=== PATIENT | female | born 1935 | race Caucasian/White ===

== ENCOUNTER 2023-09-23 17:05 | Emergency (ER) | payer MEDICARE, SELFPAY ==
[2023-09-23 17:13] VITALS: BP 160/90; PULSE 72; TEMP 36.7; O2SAT 97; BMI 35.5
--- NOTE | 2023-09-23 17:22 | ECG_ITS ---
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
--- NOTE | 2023-09-23 17:32 | ED.GENADUL1 ---
HPI HPI - General Adult General Chief complaint: Upper Respiratory Infection Stated complaint: Cough, General Weakness Time Seen by Provider: 09/23/23 17:08 Source: patient and family Mode of arrival: walk-in Limitations: no limitations History of Present Illness HPI narrative: Patient is an 88-year-old female with a history of A-fib who presents to the ER for multiple complaints. She states for the last week she has had cough and congestion. She has had green sputum with coughing and reports soreness in the ribs with coughing. She states she feels like she pulled a muscle. She is anticoagulated with Eliquis for history of A-fib. She is due to have cardioversion next week with Dr. Osman for cardiology. She has had no objective fevers. She reports some diarrhea at the beginning of the course of her illness. No sick contacts, she lives alone. She reports decreased appetite but has been eating and drinking without vomiting. She further complains that for the last 3 weeks since her medications were changed by the manganese heater, she has been feeling generally weak and not well. Her PCP recently retired and she has been working with a nurse practitioner as her primary care provider, she was not prescribed any new medications in the last week for her cough and congestion. Related Data Home Medications ?Medication ?Instructions ?Recorded ?Confirmed apixaban 5 mg tablet (Eliquis) 5 mg PO BID 09/23/23 09/23/23 atenolol 25 mg tablet 25 mg PO DAILY 09/23/23 09/23/23 carvedilol 12.5 mg tablet 12.5 mg PO DAILY 09/23/23 09/23/23 meloxicam 15 mg tablet 15 mg PO DAILY 09/23/23 09/23/23 Previous Rx's ?Medication ?Instructions ?Recorded albuterol sulfate 90 mcg/actuation 2 inh inhalation Q4H PRN shortness 09/23/23 aerosol inhaler of breath or wheezing #8.5 grams azithromycin 250 mg tablet See Rx Instructions PO .COMPLEX #6 09/23/23 (Zithromax Z-Dez) tabs methocarbamol 500 mg tablet 500 mg PO Q8H PRN muscle pain #12 09/23/23 tabs methylprednisolone 4 mg tablets in See Rx Instructions .Route 09/23/23 a dose pack (Medrol (Dez)) .COMPLEX #21 ea Allergies Allergy/AdvReac Type Severity Reaction Status Date / Time acetaminophen [From Tylenol] Allergy Mild Hives Verified 09/23/23 17:21 ibuprofen [From Motrin] Allergy Mild Hives Verified 09/23/23 17:21 metoprolol Allergy Mild Hives Verified 09/23/23 17:21 Opioid HPI Opioid Management Most Recent Opioid Data: No Data to Display Review of Systems ROS Constitutional Denies: fever or chills Ears, nose, mouth, and throat Reports: nasal congestion; Denies: throat pain Cardiovascular Denies: chest pain Respiratory Reports: shortness of breath, cough and wheezing Gastrointestinal Reports: diarrhea; Denies: nausea or vomiting Musculoskeletal Denies: back pain or neck pain Integumentary/Breast Denies: rash Neurological Denies: headache Hematologic/Lymphatic Denies: easy bruising or easy bleeding Exam Narrative Exam Narrative: Gen.: Awake, alert, in no distress Head: Normocephalic, atraumatic ENT: Moist mucous membranes Respiratory: No respiratory distress, Faint expiratory wheezing in the bilateral upper lobes Cardio: Irregular Rhythm, normal rate Extremities: Moves extremities equally, no pedal edema Psych: Normal mood and affect Neuro: No focal neuro deficit Skin: Warm, dry, intact Constitutional Vital Signs, click to edit/add: Last Vital Signs Temp 98.0 F 09/23/23 17:13 Pulse 65 09/23/23 18:12 Resp 16 09/23/23 18:12 BP 160/90 H 09/23/23 17:13 Pulse Ox 95 09/23/23 18:12 O2 Del Method Room Air 09/23/23 18:12 Course Vital Signs Vital signs: Vital Signs Temperature 98.0 F 09/23/23 17:13 Pulse Rate 72 09/23/23 17:13 Respiratory Rate 18 09/23/23 17:13 Blood Pressure 160/90 H 09/23/23 17:13 Pulse Oximetry 97 09/23/23 17:13 Oxygen Delivery Method Room Air 09/23/23 17:13 Temperature 98.0 F 09/23/23 17:13 Pulse Rate 65 09/23/23 18:12 Respiratory Rate 16 09/23/23 18:12 Blood Pressure 160/90 H 09/23/23 17:13 Pulse Oximetry 95 09/23/23 18:12 Oxygen Delivery Method Room Air 09/23/23 18:12 Medical Decision Making MDM Narrative Medical decision making narrative: Patient treated with IV fluids, albuterol, steroids, Robaxin. Patient maintains normal vital signs and oxygen saturation. Chest x-ray shows no evidence of acute cardiopulmonary changes. Lab studies including troponin, BNP are within normal limits. Patient is in rate controlled A-fib in the emergency department. Respiratory panel is positive for human metapneumovirus. Based on the patient's age and duration of symptoms, she was treated with albuterol inhaler, Medrol Dosepak, Z-Dez. Follow-up closely with PCP and return to the emergency department if symptoms change or worsen. Patient was reevaluated by attending physician prior to discharge. Medical Records Medical records reviewed: Yes I reviewed the patient's medical records Lab Data Lab results reviewed: Yes I reviewed the patient's lab results Labs: Lab Results 09/23/23 09/23/23 Range/Units 17:36 17:40 WBC 5.9 (4.0-11.0) 10^3/uL RBC 4.63 (4.20-5.40) 10^6/uL Hgb 13.5 (12.0-16.0) g/dL Hct 42.5 (36.0-48.0) % MCV 91.8 (81.0-99.0) fL MCH 29.2 (26.7-34.0) pg MCHC 31.8 (29.9-35.2) g/dL RDW 15.0 (11.0-15.0) % Plt Count 232 (150-450) 10^3/uL MPV 9.7 (9.5-13.5) fL Neut % (Auto) 65.4 (43.0-75.0) % Lymph % (Auto) 22.2 (20.5-60.0) % [place] % (Auto) 10.6 (1.7-12.0) % Eos % (Auto) 1.2 (0.9-7.0) % Baso % (Auto) 0.3 (0.2-2.0) % Neut # (Auto) 3.8 (1.4-6.5) 10^3/uL Lymph # (Auto) 1.3 (1.2-3.8) 10^3/uL [place] # (Auto) 0.6 (0.3-0.8) 10^3/uL Eos # (Auto) 0.1 (0.0-0.7) 10^3/uL Baso # (Auto) 0.0 (0.0-0.1) 10^3/uL Abs Immat Gran (auto) 0.02 (0.00-0.03) 10^3/uL Imm/Tot Granulo (auto) 0.3 (0.0-0.5) % PT 11.0 (9.0-11.6) sec INR 1.04 Sodium 138 (136-145) mmol/L Potassium 3.5 (3.5-5.1) mmol/L Chloride 101 (98-107) mmol/L Carbon Dioxide 27.3 (21.0-32.0) mmol/L Anion Gap 13.2 BUN 16.0 (7.0-18.0) mg/dL Creatinine 1.09 H (0.55-1.02) mg/dL Est GFR ( Amer) 58 L (>=60) Est GFR (Non-Af Amer) 48 L (>=60) BUN/Creatinine Ratio 14.7 Glucose 106 (74-106) mg/dL Lactate 0.9 (0.4-2.0) mmol/L Calcium 9.0 (8.5-10.1) mg/dL Total Bilirubin 0.9 (0.2-1.0) mg/dL AST 13 L (15-37) U/L ALT 18 (14-59) U/L Alkaline Phosphatase 63 (46-116) U/L Troponin I High Sens 9.9 (4.0-51.3) pg/mL NT-Pro-B Natriuret Pep 1691.0 (<=1800.0) pg/mL Total Protein 7.4 (6.4-8.2) g/dL Albumin 3.4 (3.4-5.0) g/dL Globulin 4.0 g/dL Albumin/Globulin Ratio 0.9 TSH 2.080 (0.358-3.740) uIU/mL Adenovirus (PCR) Not detected (NOT DETECTE) B. pertussis DNA (PCR) Not detected (NOT DETECTE) B.parapertussis DNA PCR Not detected (NOT DETECTE) C. pneumoniae DNA (PCR) Not detected (NOT DETECTE) Coronavirus Type OC43 Not detected (NOT DETECTE) Coronavirus Type HKU1 Not detected (NOT DETECTE) Coronavirus Type 229E Not detected (NOT DETECTE) Coronavirus Type NL63 Not detected (NOT DETECTE) Human Metapneumovir PCR Detected A (NOT DETECTE) Influenza Type A (PCR) Not detected (NOT DETECTE) Influenza Type B (PCR) Not detected (NOT DETECTE) M. pneumoniae (PCR) Not detected (NOT DETECTE) Parainfluenza PCR Not detected (NOT DETECTE) Parainfluenza 2 (PCR) Not detected (NOT DETECTE) Parainfluenza 3 (PCR) Not detected (NOT DETECTE) Parainfluenza 4 (PCR) Not detected (NOT DETECTE) RSV (RT-PCR) Not detected (NOT DETECTE) Entero/Rhino (PCR) Not detected (NOT DETECTE) SARS-CoV-2 (PCR) Not detected (NOT DETECTE) Imaging Data Chest x-ray: Attestation: I have reviewed the pertinent imaging results. Radiologist's impression: ITS Impressions Chest X-Ray 09/23/23 18:08 Impression: No radiographic evidence of acute cardiopulmonary process. Electronically authenticated by: NGOZI ARREOLA Date: 09/23/2023 19:00 ECG Data Attestation: I personally reviewed and interpreted this ECG as follows: (Atrial fibrillation at a rate of 68, right bundle branch block, no acute ST elevation or ectopy. EKG reviewed by attending physician) Discharge Plan Discharge Stand Alone Forms: Portal Instructions Chief Complaint: Upper Respiratory Infection Clinical Impression: Upper respiratory infection Patient Disposition: Home, Self-Care Time of Disposition Decision: 18:59 Condition: Good Prescriptions / Home Meds: New azithromycin [Zithromax Z-Dez] 250 mg tablet See Rx Instructions .ROUTE .COMPLEX Qty: 6 0RF Rx Instructions: For 250 mg dose pack: take 500 mg today (day 1), then 250 mg for 4 days (days 2-5) methylprednisolone [Medrol (Dez)] 4 mg tablets,dose pack See Rx Instructions .ROUTE .COMPLEX Qty: 21 0RF Rx Instructions: Taper as directed albuterol sulfate 90 mcg/actuation HFA aerosol inhaler 2 inh inhalation Q4H PRN (Reason: shortness of breath or wheezing) Qty: 8.5 0RF methocarbamol 500 mg tablet 500 mg PO Q8H PRN (Reason: muscle pain) Qty: 12 0RF No Action Eliquis 5 mg tablet 5 mg PO BID meloxicam 15 mg tablet 15 mg PO DAILY atenolol 25 mg tablet 25 mg PO DAILY carvedilol 12.5 mg tablet 12.5 mg PO DAILY Rx Instructions: must administer with a meal/food Print Language: Bengali Instructions: Upper Respiratory Infection (ED) Referrals: Physician,Non-Staff, MD [Primary Care Provider] - 1 week
[2023-09-23] MEDS: 0.9 % SODIUM CHLORIDE 1,000 ML 200 ML IV (17:41)
[2023-09-23 17:42] LABS: Adenovirus NOT DETECTED (NOT DETECTE); Bordetella parapertussis NOT DETECTED (NOT DETECTE); Coronavirus 229E NOT DETECTED (NOT DETECTE); Coronavirus HKU1 NOT DETECTED (NOT DETECTE); Coronavirus NL63 NOT DETECTED (NOT DETECTE); Coronavirus OC43 NOT DETECTED (NOT DETECTE); Human Rhinovirus/Enterovirus NOT DETECTED (NOT DETECTE); Influenza A NOT DETECTED (NOT DETECTE); Influenza B NOT DETECTED (NOT DETECTE); Mycoplasma pneumoniae NOT DETECTED (NOT DETECTE); Parainfluenza Virus 1 NOT DETECTED (NOT DETECTE); Parainfluenza Virus 2 NOT DETECTED (NOT DETECTE); Parainfluenza Virus 3 NOT DETECTED (NOT DETECTE); Parainfluenza Virus 4 NOT DETECTED (NOT DETECTE); Respiratory Syncytial Virus NOT DETECTED (NOT DETECTE); SARS-CoV-2 NOT DETECTED (NOT DETECTE)
[2023-09-23] MEDS: METHOCARBAMOL 500 MG TABLET PO (17:42)
[2023-09-23] MEDS: METHYLPREDNISOLONE SOD SUCC PF 125 MG/2 ML VIAL IVP (17:46)
[2023-09-23 17:55] LABS: Basophils Percent Auto 0.3 % (0.2-2.0); Eosinophils Absolute Auto 0.1 10^3/uL (0.0-0.7); Eosinophils Percent Auto 1.2 % (0.9-7.0); Hematocrit 42.5 % (36.0-48.0); Hemoglobin 13.5 g/dL (12.0-16.0); Immature Granulocytes Abs Auto 0.02 10^3/uL (0.00-0.03); Immature Granulocytes Pct Auto 0.3 % (0.0-0.5); Lymphocytes Absolute Auto 1.3 10^3/uL (1.2-3.8); Lymphocytes Percent Auto 22.2 % (20.5-60.0); Mean Corpuscular HGB Conc 31.8 g/dL (29.9-35.2); Mean Corpuscular Hemoglobin 29.2 pg (26.7-34.0); Mean Corpuscular Volume 91.8 fL (81.0-99.0); Mean Platelet Volume 9.7 fL (9.5-13.5); Monocytes Absolute Auto 0.6 10^3/uL (0.3-0.8); Monocytes Percent Auto 10.6 % (1.7-12.0); Neutrophils Absolute Auto 3.8 10^3/uL (1.4-6.5); Neutrophils Percent Auto 65.4 % (43.0-75.0); Platelet Count 232 10^3/uL (150-450); Red Blood Count 4.63 10^6/uL (4.20-5.40); White Blood Count 5.9 10^3/uL (4.0-11.0)
[2023-09-23 17:56] VITALS: PULSE 67
[2023-09-23 18:01] LABS: INR 1.04
--- NOTE | 2023-09-23 18:08 | XR_ITS ---
[address] [address] Patient Name: ADELINA DUKE MRN: [id number] date: 1935 Sex: F Assigned Patient Location: ER Current Patient Location: ED.MAIN Accession/Order Number: [id number] Exam Date: 09/23/2023 18:00 Report Date: 09/23/2023 19:00 At the request of: MERARI JENKINS Procedure: XR chest 1V EXAM: XR chest 1V HISTORY: Cough COMPARISON: 04/02/2014 TECHNIQUE: Chest X-ray AP, 1 view FINDINGS: Support devices: None. Lungs/pleura: No consolidation, effusion, or pneumothorax. Heart and mediastinum: Normal contours. Bones: No acute abnormality identified. XR/XR chest 1V Impression: No radiographic evidence of acute cardiopulmonary process. Electronically authenticated by: NGOZI ARREOLA Date: 09/23/2023 19:00
[2023-09-23 18:09] LABS: Lactate/Lactic Acid 0.9 mmol/L (0.4-2.0)
[2023-09-23 18:12] VITALS: PULSE 65; O2SAT 95
[2023-09-23] MEDS: ALBUTEROL SULFATE 2.5 MG/3 ML VIAL NEB IH (18:12)
[2023-09-23 18:16] LABS: Alanine Aminotransferase 18 U/L (14-59); Albumin Globulin Ratio 0.9; Albumin Level 3.4 g/dL (3.4-5.0); Alkaline Phosphatase 63 U/L (46-116); Anion Gap 13.2; Aspartate Amino Transferase 13 U/L (15-37); BUN Creatinine Ratio 14.7; Bilirubin Total 0.9 mg/dL (0.2-1.0); Carbon Dioxide 27.3 mmol/L (21.0-32.0); Chloride 101 mmol/L (98-107); Estimated GFR (African America 58 (>=60); Estimated GFR (Non-African Ame 48 (>=60); Glucose 106 mg/dL (74-106); Potassium 3.5 mmol/L (3.5-5.1); Sodium 138 mmol/L (136-145); Total Protein 7.4 g/dL (6.4-8.2); Troponin I High Sensitivity 9.9 pg/mL (4.0-51.3)
[2023-09-23 19:00] LABS: Human Metapneumovirus DETECTED (NOT DETECTE)
[2023-09-23 19:21] VITALS: BP 166/90; O2SAT 98
== END 2023-09-23 19:23 | disposition home or self-care (01) ==
PROVIDERS: Physician Assistant; Emergency Provider Emergency Medicine
DX: J06.9 Acute upper respiratory infection, unspecified (principal); I48.91 Unspecified atrial fibrillation; R06.02 Shortness of breath; B97.81 Human metapneumovirus as the cause of diseases classified elsewhere; Z79.01 Long term (current) use of anticoagulants; Z20.822 Contact with and (suspected) exposure to COVID-19; Z79.899 Other long term (current) drug therapy
CPT/HCPCS: 0202U; 36415; 71045; 80053; 83605; 83880; 84443; 84484; 85025; 85610; 93005; 94640; 96361; 96374; 99285; J2919

== ENCOUNTER 2023-10-23 14:17 | Outpatient (OUT) | payer MEDICARE, SELFPAY ==
[2023-10-23 14:43] LABS: Basophils Percent Auto 0.5 % (0.2-2.0); Eosinophils Absolute Auto 0.3 10^3/uL (0.0-0.7); Eosinophils Percent Auto 4.3 % (0.9-7.0); Hematocrit 37.8 % (36.0-48.0); Hemoglobin 11.6 g/dL (12.0-16.0); Immature Granulocytes Abs Auto 0.04 10^3/uL (0.00-0.03); Immature Granulocytes Pct Auto 0.5 % (0.0-0.5); Lymphocytes Absolute Auto 1.4 10^3/uL (1.2-3.8); Lymphocytes Percent Auto 17.5 % (20.5-60.0); Mean Corpuscular HGB Conc 30.7 g/dL (29.9-35.2); Mean Corpuscular Hemoglobin 29.7 pg (26.7-34.0); Mean Corpuscular Volume 96.9 fL (81.0-99.0); Mean Platelet Volume 9.6 fL (9.5-13.5); Monocytes Absolute Auto 0.7 10^3/uL (0.3-0.8); Monocytes Percent Auto 9.4 % (1.7-12.0); Neutrophils Absolute Auto 5.3 10^3/uL (1.4-6.5); Neutrophils Percent Auto 67.8 % (43.0-75.0); Platelet Count 280 10^3/uL (150-450); Red Cell Distribution Width 16.7 % (11.0-15.0); White Blood Count 7.9 10^3/uL (4.0-11.0)
[2023-10-23 15:35] LABS: BUN Creatinine Ratio 14.5; Calcium 8.3 mg/dL (8.5-10.1); Carbon Dioxide 32.8 mmol/L (21.0-32.0); Chloride 105 mmol/L (98-107); Estimated GFR (African America 57 (>=60); Estimated GFR (Non-African Ame 47 (>=60); Glucose 86 mg/dL (74-106); Potassium 3.8 mmol/L (3.5-5.1); Sodium 144 mmol/L (136-145)
== END 2023-10-23 14:18 | disposition home or self-care (01) ==
LOC: LAB 14:18
PROVIDERS: Visit Provider Nurse Practitioner
DX: I50.33 Acute on chronic diastolic (congestive) heart failure (principal)
CPT/HCPCS: 36415; 80048; 83880; 85025

== ENCOUNTER 2023-11-28 14:21 | Outpatient (OUT) | payer MEDICARE, SELFPAY ==
--- NOTE | 2023-11-28 14:36 | VEIN_ITS ---
Patient Name: ADELINA DUKE MR#: [id number] : 1935 Exam Date: 11/28/2023 Ordering Doctor: FAWAD PARK RADIOLOGY REPORT PROCEDURE: VC EXT VENOUS REFLUX MARQUITA LMTD COMPARISON: None. INDICATIONS: i83.893 TECHNIQUE: Duplex imaging of the lower extremity to assess the deep and superficial venous system for the presence of deep or superficial venous incompetence and to document the location and severity of disease. The study includes evaluation of the great saphenous vein (GSV), anterior accessory saphenous vein (AASV) and small saphenous vein (SSV). Patient scanned in reverse Trendelenburg and standing. FINDINGS: RIGHT LOWER EXTREMITY: Saphenofemoral Junction Reflux: Yes 8.2mm 2.2 sec GSV: Diam (mm) Reflux/ Time (sec) Proximal Thigh 8.7 Yes 1.3 Mid Thigh 5.8 Yes 1.4 Distal Thigh 5.9 Yes 0.8 Prox Calf 5.3 Yes 1.4 Mid Calf 2.8 No Saphenopopliteal Junction Reflux: 4.1mm SSV: Proximal Calf 2.9 Mid Calf 3.4 No AASV: Proximal Thigh 3.1 No Mid Thigh 2.1 No Distal Thigh Thrombi: No acute or chronic thrombus visualized Compressibility: Normal Flow: Normal Preforator: Dist/med calf 3.7mm with 0s reflux. Tech Note: Incompetent GSV. Patent varicose vein mid/med calf 3.7mm with 0.5s reflux. Patent varicose vein 4.6mm with 1.0s reflux. LEFT LOWER EXTREMITY: Saphenofemoral Junction Reflux: Yes 9.2 mm 1.9 sec GSV: Diam (mm) Reflux/Time (sec) Proximal Thigh 8.3 Yes 1.7 Mid Thigh 7.6 Yes 1.9 Distal Thigh 7.0 Yes 1.8 Prox Calf 6.1 Yes 3.3 Mid Calf 4.5 Yes 1.1 Saphenopopliteal Junction Relux: 6.5 mm Yes 1.2 SSV: Proximal Calf 6.2 Yes 1.5 Mid Calf 4.7 Yes 0.7 AASV: Not present Thrombi: No acute or chronic thrombus visualized Compressibility: Normal Flow: Normal [employer]: No perforators visualized Tech Note: Incompetent GSV and SSV. Patent varicose vein mid/med calf 4.3mm with 1.3s reflux. Patent varicose vein mid/med thigh 4.6mm with 0.8s reflux. CONCLUSION: 1. Moderate right and severe left great saphenous vein venous insufficiency with dilatation and saphenofemoral junction reflux 2. Moderate venous insufficiency left small saphenous vein with dilatation and saphenous popliteal junction reflux 3. Bilateral incompetent varicose veins Dictated by: Celestine Muhammad MD on 11/28/2023 at 15:36 Approved by: Celestine Muhammad MD on 11/28/2023 at 15:40
--- NOTE | 2023-11-28 14:36 | VEIN_ITS ---
Patient Name: ADELINA DUKE MR#: [id number] : 1935 Exam Date: 11/28/2023 Ordering Doctor: FAWAD CANTU RADIOLOGY REPORT PROCEDURE: FACILITY EST COMPREHENSIVE VEIN CENTER - OFFICE VISIT INITIAL COMPARISON: None. PROGRESS NOTES: 88-year-old female who was referred by cardiology, Dr. Cantu from [facility]. The patient has bilateral lower extremity pain and swelling and has been put on a diuretic without improvement. The patient complains of bilateral leg pain rating the pain as a 6 on a scale of 1-10. The patient describes leg swelling erythema heaviness. No prior cellulitis. The patient has had difficulty walking related to her swelling. The patient's symptoms are exacerbated by prolonged sitting and standing and are only partially relieved by rest, leg elevation and compression stockings which she has worn for approximately 2 years. The patient denies any signs and symptoms to suggest arterial ischemia. The patient describes a family history significant for hypertension congestive heart failure and myocardial infarction in her mother. Varicose veins in her mother. The patient does not drink. The patient has never smoked. No illicit drug use. Past medical history is significant for hysterectomy, tonsillectomy of, bladder suspension, left hip replacement, right knee replacement and angioplasty for peripheral arterial disease. No history of deep venous thrombus or pulmonary embolus. See separate history and physical for medication list. No prior treatment for varicose or spider veins. After review of nurse notes, history and physical exam I discussed at length the pathophysiology of venous hypertension and possible treatments, therapies and strategies available. We discussed at length the importance of elevating the lower extremities above the level of the heart, increased physical activity and compression stocking use. We discussed conservative therapy with the use of compression and discussed surgical options including ligation of proctectomy. Discussed intravenous laser ablation, micro foam chemical ablation and injection sclerotherapy at length. Risks benefits and alternatives were discussed with the patient. The patient's questions were answered. Ultrasound venous reflux study performed the same day was discussed at length with the patient. The report demonstrates moderate right and severe left great saphenous vein venous insufficiency. Moderate left small saphenous vein venous insufficiency. Bilateral incompetent varicose veins. I discussed with the patient that her subcutaneous edema likely was multifactorial with a contribution from her vein disease. I would expect some improvement in her symptoms but not complete resolution PHYSICAL EXAM: The right leg demonstrates moderate varicose reticular and spider veins. Mild subcutaneous edema. No skin ulceration or discoloration. The left leg demonstrates moderate varicose reticular and spider veins. Mild subcutaneous edema. No skin ulceration or discoloration. Both thighs, legs and feet were symmetrically warm to the touch. Good posterior tibial and dorsalis pedis pulses were present bilaterally. VEIN/VC Facility EST Comprehensive IMPRESSION: 1. Bilateral great saphenous and left small saphenous vein venous insufficiency with dilatation and saphenofemoral/saphenous popliteal junction reflux 2. Bilateral incompetent lower extremity varicose veins 3. Bilateral lower extremity subcutaneous edema 4. No flow significant arterial disease 5. CEAP: C4, Ep, As, Pr PLAN: 1. Endovenous laser ablation of the left great saphenous vein followed by right great saphenous vein followed by left small saphenous vein 2. Micro foam chemical ablation bilateral incompetent varicose veins 3. Injection sclerotherapy for reticular and spider veins 4. Long-term use of bilateral 20-30 mm compression stockings 5. Elevated legs and increased physical activity for symptomatic relief Nurse notes, history and physical were reviewed and confirmed, see attached forms. The nurse was present throughout the physical exam and consultation Dictated by: Celestine Muhammad MD on 11/29/2023 at 12:06 Approved by: Celestine Muhammad MD on 11/29/2023 at 12:12
--- NOTE | 2023-11-28 14:40 | V.VEINS.HP ---
Vital Signs 11/28/23 14:41 11/28/23 14:47 Height 5 ft 6 in Weight 99.79 kg BMI 35.5 BP Location Left Brachial BP Position Sitting BP Cuff Size Adult Respiration 18 Pulse 75 Pulse Oximetry (%) 96 Oxygen Delivery Method Room Air Varicose Veins Patient here for for comprehensive consult referred by Dr. Cantu from [facility]. Patient c/ bilateral lower leg swelling and pain. She is on a water pill but states it doesn't seem to help with swelling. Patient walked for exercise but hasn't lately due to swelling. She has worn compression stockings for 2 years. Celestine Carter MD personally performed the services described in this documentation, as scribed by Bernarda Estes RN in my presence and it is both accurate and complete. IBernarda RN, am scribing for, and in the presence of, Dr. Celestine Muhammad and in the presence of the patient. thigh: bilateral, knee: bilateral, calf: bilateral, ankle: bilateral and rouse: bilateral aching, cramping and tender 6 6 months Worsened in recent months: Yes standing and walking bed rest Reports muscle spasms of leg, erythema, fatigue, heaviness, limb pain, edema and leg edema History of lower extremity trauma: Yes Superficial thrombophlebitis: No Family history of varicose veins: yes Has patient had previous lower extremity venous surgery: No Patient has previously received the following treatment(s) for lower extremity varicose veins: Reports none Does patient have a history of : yes Does patient intend to have future pregnancies: no Has patient had lower extremity venous scan with relux testing: Yes Support hose used: Yes Problems walking or doing physical activity: Yes How does it affect you: unable to walk long distances, stand for long periods of time Do you walk much: No Do you stand much: Yes Medication compliance: good Review of Systems ROS Narrative Celestine Carter MD personally performed the services described in this documentation, as scribed by Bernarda Estes RN in my presence and it is both accurate and complete. Bernarda Carter RN, am scribing for, and in the presence of, Dr. Celestine Muhammad and in the presence of the patient. Status of ROS 10 or more systems reviewed and unremarkable except as noted in history and below Cardiovascular Reports: edema and swelling of feet/ankles Musculoskeletal Reports: extremity pain, extremity swelling, joint pain, joint swelling, muscle cramps and muscle weakness Integumentary/Breast Reports: rash and redness PFSH [facility] Medical History (Updated 11/28/23 @ 15:04 by Bernarda Estes RN) Atrial fibrillation ?I48.91 - Unspecified atrial fibrillation (ICD-10) 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 ?I83.813 - Varicose veins of bilateral lower extremities with pain (ICD-10) Hypertension ?I10 - Essential (primary) hypertension (ICD-10) Surgical History (Updated 11/28/23 @ 15:11 by Bernarda Estes RN) H/O: hysterectomy ?Z90.710 - Acquired absence of both cervix and uterus (ICD-10) History of tonsillectomy ?Z90.89 - Acquired absence of other organs (ICD-10) History of bladder suspension procedure ?Z98.890 - Other specified postprocedural states (ICD-10) ?Z87.448 - Personal history of other diseases of urinary system (ICD-10) History of left hip replacement ?Z96.642 - Presence of left artificial hip joint (ICD-10) History of knee replacement procedure of right knee ?Z96.651 - Presence of right artificial knee joint (ICD-10) History of angioplasty of peripheral vessel ?Z98.62 - Peripheral vascular angioplasty status (ICD-10) Family History (Updated 11/28/23 @ 15:12 by Bernarda Estes RN) Mother Family history of CHF (congestive heart failure) Family history of hypertension Family history of myocardial infarction 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 Brother Family history of CHF (congestive heart failure) Family history of cancer Family history of myocardial infarction Sister Family history of stroke Social History (Updated 11/28/23 @ 15:11 by Bernarda Estes, RN) Within the past year, how often did you have a drink containing alcohol: never Score interpretation: A score less than 3 is consistent with normal alcohol consumption. Smoking status: Never smoker Non-prescribed substance use: denies use Meds Home Medications and Allergies Home Medications ?Medication ?Instructions ?Recorded ?Confirmed ?Type apixaban 5 mg tablet (Eliquis) 5 mg PO BID 09/23/23 11/28/23 History atenolol 25 mg tablet 25 mg PO DAILY 09/23/23 11/28/23 History carvedilol 12.5 mg tablet 12.5 mg PO DAILY 09/23/23 11/28/23 History meloxicam 15 mg tablet 15 mg PO DAILY 09/23/23 11/28/23 History furosemide 20 mg tablet 20 mg PO Q12H 11/28/23 11/28/23 History Allergies Allergy/AdvReac Type Severity Reaction Status Date / Time acetaminophen [From Tylenol] Allergy Mild Hives Verified 09/23/23 17:21 ibuprofen [From Motrin] Allergy Mild Hives Verified 09/23/23 17:21 metoprolol Allergy Mild Hives Verified 09/23/23 17:21 [place]an AdvReac Mild Rash Uncoded 11/28/23 15:09 Exam Narrative Exam Narrative: ICelestine MD personally performed the services described in this documentation, as scribed by Bernarda Estes RN in my presence and it is both accurate and complete. Bernarda Carter RN, am scribing for, and in the presence of, Dr. Celestine Muhammad and in the presence of the patient. Constitutional Documenting provider has reviewed patient's vital signs: yes Common normals: oriented x3 Nutritional appearance: overweight Lymph Lymphatic: no lymphedema noted Cardio Peripheral pulses: posterior tibial pulses present and dorsalis pedis pulses present Extremity General: calf tenderness, edema and other findings Right lower extremity: lower leg Right lower leg: inspection and palpation Left lower extremity: lower leg Left lower leg: inspection and palpation Neuro Common normals: oriented x3 Assessment and Plan Assessment and Plan (1) 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: Plan Explained vein anatomy and physiology to patient. Explained the development of varicose veins to patient.? Explained varicose vein treatments to patient, including laser ablation, microfoam chemical ablation (Varithena), injection sclerotherapy and microphlebectomy.? Explained potential risks and benefits of varicose vein treatments.? Patient verbalizes understanding and wants to pursue varicose vein treatment.? Dr. Muhammad examines patient and reviews results of bilateral leg reflux u/s.? Patient and Dr. Muhammad creates a plan of care.? Patient also agrees to purchase bilateral thigh high compression stockings and wear them as educated.? Patient also educated on exercise and rest elevation of bilateral legs. Plan is for bilateral EVLT's, bilateral Varithena, and possible sclerotherapy. ICelestine MD personally performed the services described in this documentation, as scribed by Bernarda Estes RN in my presence and it is both accurate and complete. I, Bernarda Estes RN, am scribing for, and in the presence of, Dr. Celestine Muhammad and in the presence of the patient.
[2023-11-28 14:41] VITALS: BMI 35.5
[2023-11-28 14:47] VITALS: PULSE 75; O2SAT 96
--- NOTE | 2023-11-28 15:46 | P.DS_ITS ---
Discharge Plan Discharge Disposition: Home, Self-Care Outpatient Diagnostics: VC Endovenous Ablation 1VeinLT (Routine) Timeframe: 2 Weeks Facility: [facility] - Location: [facility] Center Ordered By: Celestine Muhammad Follow Up Appointments: 12/12/23 Print Language: Bruneian Discharge Date/Time: 11/28/23 15:22
== END 2023-11-28 15:22 | disposition home or self-care (01) ==
PROVIDERS: Visit Provider Internal Medicine Cardiovascular Disease
DX: I83.893 Varicose veins of bilateral lower extremities with other complications (principal)
CPT/HCPCS: 93970; G0463

== ENCOUNTER 2023-12-12 10:15 | Outpatient (OUT) | payer MEDICARE, SELFPAY ==
--- NOTE | 2023-12-12 07:53 | V.VEINS.HP ---
Varicose Veins Patient in this day for EVLT of left great saphenous vein. Celestine Carter MD personally performed the services described in this documentation, as scribed by Benji Wagoner RN in my presence and it is both accurate and complete. IBenji RN, am scribing for, and in the presence of, Dr. Celestine Muhammad and in the presence of the patient. thigh: bilateral, knee: bilateral, calf: bilateral, ankle: bilateral and rouse: bilateral aching, cramping and tender 6 6 months Worsened in recent months: Yes standing and walking bed rest Reports muscle spasms of leg, erythema, fatigue, heaviness, limb pain, edema and leg edema History of lower extremity trauma: Yes Superficial thrombophlebitis: No Family history of varicose veins: yes Has patient had previous lower extremity venous surgery: No Patient has previously received the following treatment(s) for lower extremity varicose veins: Reports none Does patient have a history of : yes Does patient intend to have future pregnancies: no Has patient had lower extremity venous scan with relux testing: Yes Support hose used: Yes Problems walking or doing physical activity: Yes How does it affect you: unable to walk long distances, stand for long periods of time Do you walk much: No Do you stand much: Yes Medication compliance: good Review of Systems ROS Narrative Celestine Carter MD personally performed the services described in this documentation, as scribed by Benji Wagoner RN in my presence and it is both accurate and complete. Benji Carter RN, am scribing for, and in the presence of, Dr. Celestine Muhammad and in the presence of the patient. 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 ?I83.813 - Varicose veins of bilateral lower extremities with pain (ICD-10) Hypertension ?I10 - Essential (primary) hypertension (ICD-10) Surgical History (Updated 11/28/23 @ 15:11 by Bernarda Estes RN) H/O: hysterectomy ?Z90.710 - Acquired absence of both cervix and uterus (ICD-10) History of tonsillectomy ?Z90.89 - Acquired absence of other organs (ICD-10) History of bladder suspension procedure ?Z98.890 - Other specified postprocedural states (ICD-10) ?Z87.448 - Personal history of other diseases of urinary system (ICD-10) History of left hip replacement ?Z96.642 - Presence of left artificial hip joint (ICD-10) History of knee replacement procedure of right knee ?Z96.651 - Presence of right artificial knee joint (ICD-10) History of angioplasty of peripheral vessel ?Z98.62 - Peripheral vascular angioplasty status (ICD-10) Family History (Updated 11/28/23 @ 15:12 by Bernarda Estes, RN) Mother Family history of CHF (congestive heart failure) Family history of hypertension Family history of myocardial infarction 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 Brother Family history of CHF (congestive heart failure) Family history of cancer Family history of myocardial infarction Sister Family history of stroke Social History (Updated 11/28/23 @ 15:11 by Bernarda Estes, RN) Within the past year, how often did you have a drink containing alcohol: never Score interpretation: A score less than 3 is consistent with normal alcohol consumption. Smoking status: Never smoker Non-prescribed substance use: denies use Meds Home Medications and Allergies Home Medications ?Medication ?Instructions ?Recorded ?Confirmed ?Type apixaban 5 mg tablet (Eliquis) 5 mg PO BID 09/23/23 11/28/23 History atenolol 25 mg tablet 25 mg PO DAILY 09/23/23 11/28/23 History carvedilol 12.5 mg tablet 12.5 mg PO DAILY 09/23/23 11/28/23 History meloxicam 15 mg tablet 15 mg PO DAILY 09/23/23 11/28/23 History furosemide 20 mg tablet 20 mg PO Q12H 11/28/23 11/28/23 History Allergies Allergy/AdvReac Type Severity Reaction Status Date / Time acetaminophen [From Tylenol] Allergy Mild Hives Verified 09/23/23 17:21 ibuprofen [From Motrin] Allergy Mild Hives Verified 09/23/23 17:21 metoprolol Allergy Mild Hives Verified 09/23/23 17:21 Coban AdvReac Mild Rash Uncoded 11/28/23 15:09 Exam Narrative Exam Narrative: I, Celestine Muhammad MD personally performed the services described in this documentation, as scribed by Benji Wagoner RN in my presence and it is both accurate and complete. I, Benji Wagoner RN, am scribing for, and in the presence of, Dr. Celestine Muhammad and in the presence of the patient. Constitutional Documenting provider has reviewed patient's vital signs: yes Common normals: oriented x3 Nutritional appearance: overweight Lymph Lymphatic: no lymphedema noted Cardio Peripheral pulses: posterior tibial pulses present and dorsalis pedis pulses present Extremity General: calf tenderness, edema and other findings Right lower extremity: lower leg Right lower leg: inspection and palpation Left lower extremity: lower leg Left lower leg: inspection and palpation Neuro Common normals: oriented x3 Assessment and Plan Assessment and Plan (1) 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: Plan f/u evaluation and left leg limited u/s following EVLT of left GSV Procedures Procedure Instructions Procedures Plan of care: Risks and benefits of the procedure were discussed at length and informed written consent was obtained.? Time-out completed for verification of correct patient, procedure and site.? Staff present during time-out: Benji Wagoner RN,? Celestine Muhammad MD, [facility],RVT. Time Out Time Patient prepped and procedure performed in usual sterile fashion. Risk of injury related to use of Diode laser and/or laser devices__CR___ ? Serial number of laser used :? [id number] Control panel self test performed, electrical cords in good condition, floor is dry, basin of water available, fire extinguisher in close proximity_CR__ Polycarbonate goggles available and Laser warning signs outside of doors___CR__ Eye protection provided to patient and staff in room_CR___ Use of laser retardant drapes and dull blackened instruments as directed__CR___ Use of nonflammable prep solutions and use of saline soaked sponges to protect tissues as indicated _CR___ Length cm Laser operated by _Dr. Muhammad Physician verbal confirmation laser locked in place__CR__ Laser start time (date and time) __12/12/2023@ Laser stop time(date and time) _12/12/2023@ [place] _8.0___ Average laser use Joules Average laser use seconds Pulse continuous ___CR_? Pulse intermittent ___ Amount of Tumescent used Evaluated patient for signs and symptoms of electrical injury __CR___ ? Skin clear at insertion site __CR___ Patient tolerated procedure well.? Left leg Coban dressing applied to access site.? Applied Left thigh high leg compression stocking. Will return on // for Left leg limited venous ultrasound and exam. ICelestine MD personally performed the services described in this documentation, as scribed by Benji Wagoner RN in my presence and it is both accurate and complete. I, Benji Wagoner RN, am scribing for, and in the presence of, Dr. Celestine Muhammad and in the presence of the patient.
--- NOTE | 2023-12-12 08:56 | W.VEIN ---
Discharge Plan Discharge Disposition: Home, Self-Care Outpatient Diagnostics: VC Facility EST LMTD (Routine) Timeframe: 2 Weeks Facility: [facility] - Location: [facility]in Center Ordered By: Celestine Muhammad VC EXT Venous LT Limited (Routine) Timeframe: 2 Weeks Facility: [facility] - Location: Vein Center Ordered By: Celestine Muhammad Print Language: Slovak
--- NOTE | 2023-12-12 10:15 | VEIN_ITS ---
[address] [address] Patient Name: ADELINA DUKE MRN: [id number] date: 1935 Sex: F Assigned Patient Location: Current Patient Location: Accession/Order Number: [id number] Exam Date: 12/12/2023 10:23 Report Date: 12/12/2023 11:28 At the request of: ANTONY TATUM Procedure: VC Endovenous Ablation 1VeinLT EXAMINATION: VC Endovenous Ablation 1Vein, left great saphenous vein HISTORY: I83.813 - Varicose veins of bilateral lower extremities w... COMPARISON: No relevant comparison available. TECHNIQUE: The risks and benefits of the procedure had been previously discussed, and were rediscussed at length. Informed written consent was obtained. Shannan Davidson and Bernarda Voss assisted. Time out procedure was performed. The left lower extremity was prepared and draped in the usual sterile fashion to allow knee flexion in the sterile field. Duplex ultrasound probe was draped in a sterile cover, sterile transmission gel was used. Venous mapping was performed with the areas of dilation and large tributaries marked. The total length was 42 cm from the entry proximal calf to 3 cm below the saphenofemoral junction. The diameter of the greater saphenous vein ranged from 6-9 mm. A 30 gauge needle and 1% buffered lidocaine was used to anesthetize the entry site. A 4 mm incision was made with a scalpel and the saphenous vein was entered percutaneously under direct ultrasound guidance with a micropuncture set, a single stick was successful in gaining access. A micro-guide wire was inserted and the needle removed. A micro-set including a dilator was inserted over the microwire and the needle and dilator were removed. A 0.018 guide wire was inserted through the micro-set and threaded through the saphenous vein to the saphenofemoral junction. The dilator was removed and an introducer sheath was inserted over the wire until the end of the sheath entered the saphenofemoral junction. The dilator and wire were removed and the 600 micron fiber was introduced and placed and positioned so that it extended beyond the sheath and was 3 cm peripheral to the saphenofemoral femoral junction. Final position of the fiber was determined by ultrasound guidance and duplex imaging. Tumescent anesthetic was delivered by ultrasound guidance. 250 cc of fluid was delivered along the entire course of the saphenous vein. The solution consisted of 1000 cc of normal saline with 40 mL of 1% lidocaine and 20 mL of sodium bicarbonate. A final positioning check was made. The energy source was turned on by means of the foot pedal and the fiber and sheath were withdrawn. The total number of Joules delivered was 2705. The laser was active for 338 seconds under continuous pulse, average laser use of 8 J. Laser start time 11:11 AM 12/12/2023 . Laser stop time 11:17 AM 12/12/2023 . A duplex ultrasound revealed compressibility and flow at the saphenofemoral junction immediately after the procedure. Hemostasis at the access site was achieved. The skin incision of the saphenous vein was closed with a 4 x 4. A compression stocking was applied. Postop instructions were given. A follow up appointment was recommended and scheduled. The patient tolerated the procedure well and was discharged in good condition . VEIN/VC Endovenous Ablation 1VeinLT IMPRESSION: Technically successful endovenous laser ablation left great saphenous vein Electronically authenticated by: ANTONY TATUM Date: 12/12/2023 11:28
[2023-12-12] MEDS: 0.9 % SODIUM CHLORIDE 500 ML, LIDOCAINE HCL 20 ML, SODIUM BICARBONATE 10 MEQ INJ (10:16)
[2023-12-12] MEDS: LIDOCAINE HCL 1% 100 MG/10 ML MDV INJ (10:17)
--- OUTSIDE RECORDS SUMMARY | 2023-12-12 10:37 | XMS_ITS | CCD ---
Author Organization [facility] Care Team Providers Care Cognos Bi Administrator Name Role Phone Radha Bruno MD Unavailable Alba Alston MD Primary Care Provider Livier CREDIT RISK MANAGEMENT DIRECTOR, Alba Teixeira Unavailable MATTHEW OSMAN Admitting Unavailable MARU, MATTHEW Attending Unavailable BARAZI, JOSE DANIEL Attending Unavailable DEBI, JOVITA Attending Unavailable MARU, MATTHEW Referring Unavailable MARU, MATTHEW Referring Unavailable XAVIER, FAWAD Attending Unavailable MARU, MATTHEW Attending Unavailable XAVIER, FAWAD Attending Unavailable MAIER, ALBA Teixeira Attending Unavailab le MAIER, ALBA Teixeira Referring Unavailab le MAIER, ALBA Teixeira Attending Unavailab le MAIER, ALBA Teixeira Attending Unavailab le MAIER, ALBA Teixeira Attending Unavailab le HACKENBURG, DAGO A Attending Unavailab le MAIER, ALBA Teixeira Attending Unavailab le MAIER, ALBA Teixeira Attending Unavailab le Allergies Allergy Classification Reported Allergen(s) Allergy Type Date of Onset Reaction(s) Facility (3 sources) Acetaminophen; Translations: [ACETAMINOPHEN] Drug Allergy 02-27-2023 Unknown [facility] Work Phone: (2 sources) Amoxicillin Drug Allergy 02-27-2023 [facility] (3 sources) celecoxib; Translations: [CELECOXIB] Drug Allergy 02-25-2019 [facility] (3 sources) Ibuprofen; Translations: [IBUPROFEN] Drug Allergy 02-25-2019 [facility] Healthcare (3 sources) Metoprolol; Translations: [METOPROLOL] Drug Allergy 03-22-2021 Rash [facility] (3 sources) Nitrofurantoin; Translations: [NITROFURANTOIN] Drug Allergy 02-27-2023 Hives [facility] (3 sources) Nitrofurantoin; Translations: [NITROFURANTOIN MACROCRYSTAL] Drug Allergy 02-25-2019 Anaphylaxis [facility] (2 sources) Piroxicam Drug Allergy 02-27-2023 [facility] (2 sources) Sulfonamides (Antibiotic) Drug Allergy 02-27-2023 [facility] (1 source) Amiodarone; Translations: [AMIODARONE] Drug Allergy 10-24-2023 [facility] Repository Medications Current Medications Medication Drug Class(es) Dates Sig (Normalized) Sig (Original) ALPRAZolam 0.5 mg oral tablet (2 sources) Benzodiazepine Start: 05-01-2023 take 1 tablet by mouth once ALPRAZolam (Xanax) 0.5 MG tablet Indications: Generalized anxiety disorder (CMS/HCC) Take 1 tablet (0.5 mg) by mouth every 12 (twelve) hours 30 tablet 0 05/01/2023 Active amLODIPine 5 mg oral tablet (2 sources) Dihydropyridine Calcium Channel Tarah Start: 06-19-2023 End: 06-18-2024 take 1 tablet by mouth in the morning amLODIPine (Norvasc) 5 MG tablet Indications: Essential hypertension (CMS/HCC) Take 1 tablet (5 mg) by mouth in the morning. 30 tablet 11 06/19/2023 06/18/2024 Active apixaban 2.5 mg oral tablet (2 sources) Factor Xa Inhibitor take 1 tablet by mouth every twelve hours Eliquis 2.5 MG tablet Take 2.5 mg by mouth every 12 (twelve) hours Pt cuts back to one a day if she sees bruising 0 Active loperamide hydrochloride 2 mg oral capsule (2 sources) Opioid Agonist Start: 03-09-2022 take 1 capsule by mouth four times daily as needed loperamide (Imodium) 2 MG capsule Take 2 mg by mouth 4 (four) times a day as needed. 0 03/09/2022 Active meloxicam 15 mg oral tablet (2 sources) Nonsteroidal Anti-inflammatory Drug take 1 tablet by mouth in the morning meloxicam (Mobic) 15 MG tablet Take 1 tablet by mouth in the morning. 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; Translations: [Cerebral infarction due to thrombosis of right middle cerebral artery] Onset: 02-27-2023 02-27-2023 Chronic Anxiety disorders (4 sources) Anxiety; Translations: [Anxiety disorder, unspecified] Onset: 02-27-2023 02-27-2023 Chronic Cardiac dysrhythmias (8 sources) Chronic atrial fibrillation; Translations: [Chronic atrial fibrillation, unspecified] Onset: 02-27-2023 06-23-2023 Chronic Cardiac dysrhythmias (2 sources) Tachycardia, unspecified; Translations: [Tachycardia, unspecified] Onset: 10-23-2023 Episodic Congestive heart failure; nonhypertensive (3 sources) Heart failure; Translations: [Heart failure, unspecified] Onset: 10-18-2023 06-23-2023 Chronic Delirium, dementia, and amnestic and other cognitive disorders (2 sources) Old-age; Translations: [Age-related physical debility] Onset: 02-27-2023 02-27-2023 Chronic Essential hypertension (5 sources) Essential hypertension; Translations: [Essential (primary) hypertension] Onset: 02-27-2023 02-27-2023 Chronic Hypertension with complications and secondary hypertension (2 sources) Hypertensive heart disease with heart failure; Translations: [Hypertensive heart disease with heart failure] Onset: 10-23-2023 Chronic Osteoarthritis (4 sources) Osteoarthritis of multiple joints ; Translations: [Polyosteoarthritis, unspecified] Onset: 02-27-2023 02-27-2023 Chronic Other connective tissue disease (2 sources) Artificial knee joint present; Translations: [Presence of right artificial knee joint] Onset: 02-27-2023 02-27-2023 Chronic Other nervous system disorders (2 sources) Chronic pain; Translations: [Other chronic pain] Onset: 02-27-2023 02-27-2023 Chronic Other nutritional; endocrine; and metabolic disorders (2 sources) Obese class I; Translations: [Obesity, unspecified] Onset: 02-27-2023 02-27-2023 Chronic Other nutritional; endocrine; and metabolic disorders (2 sources) Obesity, unspecified; Translations: [Obesity, unspecified] Onset: 07-15-2023 Chronic Paralysis (2 sources) Left hemiplegia; Translations: [Hemiplegia, unspecified affecting left nondominant side] Onset: 02-27-2023 02-27-2023 Chronic Lyubov-; endo-; and myocarditis; cardiomyopathy (except that caused by tuberculosis or sexually transmitted disease) (2 sources) Endocarditis, valve unspecified; Translations: [Endocarditis, valve unspecified] Onset: 10-23-2023 Chronic Peripheral and visceral atherosclerosis (2 sources) Aortic arch atherosclerosis; Translations: [Atherosclerosis of aorta] Onset: 03-30-2021 03-12-2023 Chronic Unclassified (2 sources) Longstanding persistent atrial fibrillation; Translations: [Longstanding persistent atrial fibrillation] Onset: 08-20-2023 Unclassified (2 sources) Chronic atrial fibrillation, unspecified; Translations: [Chronic atrial fibrillation, unspecified] Onset: 07-15-2023 Varicose veins of lower extremity (2 sources) Varicose veins of bilateral lower extremities with other complications; Translations: [Varicose veins of bilateral lower extremities with other complications] Onset: 10-23-2023 Episodic Past or Other Problems Problem Classification Problem Date Documented Da te Episodic/Chronic Complications of surgical procedures or medical care (2 sources) Complication of surgical procedure; Translations: [Unspecified complication of procedure, initial encounter] Onset: 02-27-2023 02-27-2023 Episodic Fracture of lower limb (4 sources) Closed fracture of right ankle; Translations: [Other fracture of right lower leg, initial encounter for closed fracture] Onset: 02-27-2021 03-12-2023 Episodic Other acquired deformities (2 sources) Leg length inequality; Translations: [Unequal limb length (acquired), unspecified site] Onset: 02-27-2023 02-27-2023 Episodic Other connective tissue disease (2 sources) Osteophyte of bone; Translations: [Other shoulder lesions, left shoulder] Onset: 02-27-2023 02-27-2023 Episodic Other connective tissue disease (2 sources) Full thickness rotator cuff tear; Translations: [Complete rotator cuff tear or rupture of left shoulder, not specified as traumatic] Onset: 02-27-2023 Resolved: 03-12-2023 03-12-2023 Episodic Other gastrointestinal disorders (2 sources) Diarrhea; Translations: [Diarrhea, unspecified] Onset: 02-27-2023 02-27-2023 Episodic Other nervous system disorders (2 sources) Abnormal gait; Translations: [Unspecified abnormalities of gait and mobility] Onset: 02-27-2023 02-27-2023 Episodic Urinary tract infections (2 sources) Escherichia coli urinary tract infection; Translations: [Urinary tract infection, site not specified] Onset: 03-05-2021 03-12-2023 Episodic Results Test Name Value Interpretation Reference Range Facility Office Visiton 11-22-2023 Follow-up visit [id number] Radha Madrid nn 1935 F Date Provider Department Center 11/22/2023 [id number] PARK Family History Problem Relation Age of Onset Stroke Mother Stroke Father Stroke Sister Heart attack Brother Cancer Brother Family Status - Relation Status Age at Mother Father Sister Brother Level of Service:81226 [place] OFFICE/OUTPATIENT ESTABLISHED MOD MDM 30 MIN [facility] 36on 10-30-2023 36 Spoke with patient a nd she states she's taking atenolol 25mg daily and NOT taking Cardizem. [facility] 36on 10-24-2023 36 Patient called me th is morning and she does have a bottle of atenolol 25mg tablets at home. She said the date on the bottle is August [address] Osman's name is on it. The RX went to [facility]. There's no documentation that I could find in Dr. Osman's note about starting her on atenolol. For some reason I'm unable to see it sent into her pharmacy in [place] also. I will be investigating this further to see why we aren't able to see when this was faxed into [facility]. Thanks. [facility] Telephoneon 10-24-2023 Telephone [id number] Radha Madrid nn 1935 F Date Provider Department Center 10/24/2023 FELICITY GARZA Family History Problem Relation Age of Onset Stroke Mother Stroke Father Stroke Sister Heart attack Brother Cancer Brother Family Status - Relation Status Age at Mother Father Sister Brother [facility] 2910-23-2023 29 Addended by: FAWAD PARK on: 10/24/2023 05:20 PM Modules accepted: Orders [facility] Office Visiton 10-23-2023 Follow-up visit [id number] Radha Madrid 1935 Provider Department Center 10/23/2023 [id number] HOANG Family History Problem Relation Age of Onset Stroke Mother Stroke Father Stroke Sister Heart attack Brother Cancer Brother Family Status - Relation Status Age at Mother Father Sister Brother Level of Service:42923 [place] OFFICE/OUTPATIENT ESTABLISHED MOD MDM 30 MIN [facility] 37on 10-18-2023 37 Take lasix 20 mg (1 tab twice a day) for the next 3 days. With potassium tablet- may repeat as needed for fluid retention and swelling/shortness of breath *Continue heart healthy diet and low sodium diet. *Monitor daily weights, fluid restriction 1.5-2Liters/day, lab work to check kidney/renal function and electrolytes *Call office for weight gain of 2 pounds in 1 day or 5 pounds in 1 week, increased leg swelling, shortness of breath or shortness of breath at night and having to sleep sitting up taller/more pillows than normal or in recliner. [facility] Office Visiton 10-18-2023 Follow-up visit [id number] Radha Madrid 1935 Provider Department Center 10/18/2023 JOVITA CHI Family History Problem Relation Age of Onset Stroke Mother Stroke Father Stroke Sister Heart attack Brother Cancer Brother Family Status - Relation Status Age at Mother Father Sister Brother [place] Service:00912 [place] OFFICE/OUTPATIENT ESTABLISHED MOD MDM 30 MIN [facility] 36on 10-04-2023 36 Mehnaz called from th e dental laboratory supervisor and states that this patients heart rate was in the 30's prior to converting and then went back to the 60's in sinus rhythm. Patients BP was rising after being told to discontinue her BB. Patient restarted BB own her own and blood pressure is better. Mehnaz concerned that the BB will continue to reduce her heart rate. Per Dr Osman patient to continue the BB and monitor her BP and Heart rate at intervals of 8 am noon and 8pm and contact our office in 1 week with her numbers to see if any adjustments need to be made at that time. Patient has been informed [facility] Documentationon 10-04-2023 Documentation [id number] Radha Madrid nn 1935 F Date Provider Department Center 10/04/2023 [facility] Family History Problem Relation Age of Onset Stroke Mother Stroke Father Stroke Sister Heart attack Brother Cancer Brother Family Status - Relation Status Age at Mother Father Sister Brother [facility] HP 10-02-2023 [facility] Electrophysiology Consult Note Reason for visit: afib HPI: Radha Madrid is a 88 y.o. year old with past medical history of htn, afib, hx traumatic SAH, chronic knee pain on mobic, chronic LE edema. She was referred to us for A-fib management and seen by Jose Daniel NUNEZ. she had A-fib for several years, has never been cardioverted. She used to be on a beta-tarah but developed a rash/hives back in 2020 and that was stopped. For some reason she was never restarted any type of rate control but states has never had issues with fast heart rate up until the last month to 6 weeks. she has noticed racing heart, and a mild increase in lower extremity swelling. she has been on Eliquis 2.5 mg twice daily despite not meeting guideline criteria's, age greater than 80, weight 100 kg, creatinine normal and tbis was increased to full dose 5 mg twice daily to see if she can tolerate. She does note frequent falls but does have history of a traumatic fall which was likely due to her trying to carry a chair down the stairs backwards. Subsequently 7-day event monitor was placed which showed that she was still chronic atrial fibrillation with a ventricular rate ranging from 51 beats a minute- 118 beats a minute. no significant pauses were noted. nocturnally she was noted to have ventricular rates in the 50s. she is currently Cardizem 120 mg daily. PMH: Past Medical History: Diagnosis Date Abnormal ECG Arrhythmia Atrial fibrillation (CMS/HCC) Hypertension PSH: Past Surgical History: Procedure Laterality Date APPENDECTOMY CATARACT EXTRACTION CHOLECYSTECTOMY HYSTERECTOMY REPLACEMENT TOTAL KNEE ONCOLOGIC TONSILLECTOMY SH: Social Determinants of Health Tobacco Use: Low Risk (08/20/2023) Patient History Smoking Tobacco Use: Never Smokeless Tobacco Use: Never Passive Exposure: Not on file Alcohol Use: Not on file Financial Resource Strain: Not on file Food Insecurity: Not on file Transportation Needs: Not on file Physical Activity: Not on file Stress: Not on file Social Connections: Not on file Intimate Partner Violence: Unknown (07/11/2023) [place] Safety & Environment Fear of Current or Ex-Partner: Not on file Emotionally Abused: Not on file Physically Abused: Not on file Sexually Abused: Not on file Physically or Sexually Abused: Not on file Depression: Not on file Housing Stability: Not on file Utilities: Not on file Allergies: Allergies Allergen Reactions Ibuprofen Anaphylaxis Other Reaction(s): swelling of face Nitrofurantoin Macrocrystal Anaphylaxis Metoprolol Hives Other reaction(s): hives, SOB Acetaminophen Unknown Nitrofurantoin Hives Celecoxib GI intolerance Other Reaction(s): breakout/facial swelling Weight: 101kg Visit Vitals BP (!) 131/91 Pulse 67 Resp 18 Ht 1.676 m (5' 6 ) Wt 95.3 kg (210 lb) SpO2 100% BMI 33.89 kg/m??? OB Status Hysterectomy Smoking Status Never BSA 2.11 m??? Meds: No current facility-administered medications on file prior to encounter. Current Outpatient Medications on File Prior to Encounter Medication Sig Dispense Refill amiodarone (Pacerone) 200 mg tablet Take 2 tablets (400 mg) by mouth in the morning and at bedtime for 14 days, THEN 1 tablet (200 mg) in the morning. 86 tablet 0 apixaban (Eliquis) 5 mg tablet Take 1 tablet (5 mg) by mouth in the morning and at bedtime. 60 tablet 11 atenolol (Tenormin) 25 mg tablet Take 1 tablet (25 mg) by mouth once daily as directed. STOP CARDIZEM 90 tablet 1 dilTIAZem CD (Cardizem CD) 120 mg 24 hr capsule Take 1 capsule (120 mg) by mouth in the morning. 30 capsule 11 furosemide (Lasix) 20 mg tablet Take 1 tablet (20 mg) by mouth if needed each day (for le edema, 2-3lbs/day or 5-7lbs/week). 30 tablet 11 meloxicam (Mobic) 15 mg tablet Take 15 mg by mouth in the morning. ALPRAZolam (Xanax) 0.5 mg tablet Take 0.5 mg by mouth every 12 (twelve) hours. ROS: Cardio Basic Cardiovascular Symptoms: no lightheadedness, no leg edema, no syncope, no orthopnea, no PND, no claudication, Constitutional Constitutional: no fever, no night sweats, no significant weight gain, no significant weight loss, no exercise intolerance Eyes Eyes: no dry eyes, no irritation, no vision change ENMT Ears: no difficulty hearing, no ear pain Nose: no frequent nosebleeds, Mouth/Throat: no sore throat, no bleeding gums, no snoring, no dry mouth, no mouth ulcers, no oral abnormalities, no teeth problems Respiratory Respiratory: no cough, no wheezing, no coughing up blood, no sleep apnea Musculoskeletal Musculoskeletal: no muscle aches, no muscle weakness, joint pain+, no back pain, no swelling in the extremities Integumentary Skin no rash, no ulcer, no varicosities, no discoloration, no pruritus Neurologic Neurologic: no loss of consciousness, no weakness, no numbness, no seizures, no dizziness, no headaches Psychiatric Psych: no depression, feeling safe in rela (more content not included)... [facility] NURSNOTEon 10-02-2023 NURSNOTE During call back fro vivek Arce. Pt was told to stop here BB due to bradycaria, She was concerned because she held her BB et B/P jumped into 150 systolic . So she took her BB et her B/P went down to 116 systolic. Change Person educated pt her HR being in the 30s when in SR. Reducated her to stop the BB et notified Dr. Osman of the situation thru Mary DAWKINS. Dr. Osman to contact pt. [facility] NURSNOTE RN educated pt on d/ c instructions. RN encouraged pt to voice any questions or concerns. Pt verbalizes no questions or concerns at this time. Pt was wheeled off of unit with all of belongings. [facility] Orders Onlyon 10-02-2023 Orders Only [id number] Radha Madrid ross 1935 F Date Provider Department Center 10/02/2023 Juliane-[facility] Family History Problem Relation Age of Onset Stroke Mother Stroke Father Stroke Sister Heart attack Brother Cancer Brother Family Status - Relation Status Age at Mother Father Sister Brother Normal [facility] Office Visiton 08-20-2023 Follow-up visit [id number] Radha Madrid nn 1935 Provider Department Center 08/20/2023 Arlette-MATTHEW OSMAN [facility] Family History Problem Relation Age of Onset Stroke Mother Stroke Father Stroke Sister Heart attack Brother Cancer Brother Family Status - Relation Status Age at Mother Father Sister Brother Level of Service:66867 [place] OFFICE/OUTPATIENT NEW MODERATE MDM 45 MINUTES Reason for Visit and Comments: Follow-up [[id number]] - Monitor results Patient is having issues with increase in medications. Normal [facility] Orders Onlyon 08-20-2023 Orders Only [id number] Radha Madrid nn 1935 Provider Department Center 08/20/2023 Gordo5-OLIVIA BARRY [facility] Family History Problem Relation Age of Onset Stroke Mother Stroke Father Stroke Sister Heart attack Brother Cancer Brother Family Status - Relation Status Age at Mother Father Sister Brother Normal [facility] Office Visiton 07-15-2023 Follow-up visit [id number] Radha Madrid 1935 Provider Department Center 07/15/2023 Yanira-JOSE DANIEL [facility] Family History Problem Relation Age of Onset Stroke Mother Stroke Father Stroke Sister Heart attack Brother Cancer Brother Family Status - Relation Status Age at Mother Father Sister Brother Level of Service:47468 [place] OFFICE/OUTPATIENT NEW MODERATE MDM 45 MINUTES Normal [facility] XR CHEST 2 VIEWSon XR CHEST 2 VIEWS EXAMINATION/TECHNIQU E: XR CHEST 2 VIEWS HISTORY: Shortness of breath. COMPARISON: None RESULT: Hyperinflated lungs. No focal consolidation. No pleural effusion. No pneumothorax. Mildly coarsened interstitial lung markings. Enlarged cardiomediastinal silhouette. Aortic vascular calcifications. Tortuosity of the aorta. No acute osseous findings. Degenerative changes. IMPRESSION: No acute radiographic findings. ELECTRONICALLY SIGNED BY: Virgil Thomas MD Normal Not Available Vital Signs Date Time Vital Sign Value Performing Clinician Faci cameron 06-24-2023 11:38-0500 Body height 165.1 cm Alba Valladarestrick CREDIT RISK MANAGEMENT DIRECTOR Work Phone: [facility] 06-24-2023 11:38-0500 Body mass index (BMI) [Ratio] 36.38 kg/m2 Alba Valladarestrick CREDIT RISK MANAGEMENT DIRECTOR Work Phone: [facility] 06-24-2023 11:38-0500 Body weight 99.16 kg Alba Valladarestrick CREDIT RISK MANAGEMENT DIRECTOR Work Phone: [facility] 06-24-2023 11:38-0500 Diastolic blood pressure 74 mm[Hg] Alba Valladarestrick CREDIT RISK MANAGEMENT DIRECTOR Work Phone: [facility] 06-24-2023 11:38-0500 Heart rate 99 /min Alba Jhak CREDIT RISK MANAGEMENT DIRECTOR Work Phone: [facility] 06-24-2023 11:38-0500 SaO2% (BldA) [Mass fraction] 96 % Alba Valladarestrick CREDIT RISK MANAGEMENT DIRECTOR Work Phone: [facility] 06-24-2023 11:38-0500 Systolic blood pressure 124 mm[Hg] Alba Valladarestrick CREDIT RISK MANAGEMENT DIRECTOR Work Phone: [facility] Healthcare Encounters Encounter Date Encounter Type Care Provider Facility Start: 12-09-2023 End: 12-09-2023 ambulatory ALBA A MAIER Not Available Start: 12-05-2023 End: 12-05-2023 ambulatory ALBA A MAIER Not Available Start: 12-02-2023 End: 12-02-2023 ambulatory DAGO A HAMICENBURG Not Available Start: 11-22-2023 End: 11-22-2023 ambulatory [facility] Start: 10-23-2023 ambulatory [facility] Start: 10-18-2023 End: 10-18[facility]: 10-02-[address] [facility] Start: 10-02-2023 End: 10-02-[address] [facility] Start: 08-27-2023 End: 08-27-2023 ambulatory ALBA MAIER Not Available Start: 08-20-2023 End: 08-20-2023 ambulatory MATTHEW MARU [facility] Start: 07-22-2023 End: 07-22-2023 ambulatory ALBA MAIER Not Available Start: 07-15-2023 End: 07-15-2023 ambulatory JOSE DANIEL DENTONPREmma [facility] Start: 06-24-2023 End: 06-24-2023 Office outpatient visit 25 minutes Alba Maier CREDIT RISK MANAGEMENT DIRECTOR Work Phone: [facility] Comment on above: Chronic atrial fibri llation (HCC) (CMS/HCC) (Primary Dx); Essential hypertension (CMS/HCC) Start: 06-24-2023 End: 06-24-2023 ambulatory ALBA MAIER Not Available Start: 06-23-2023 Orders Only Alba taylor CREDIT RISK MANAGEMENT DIRECTOR Work Phone: [facility] Comment on above: Chronic atrial fibri llation (HCC) (CMS/HCC) (Primary Dx); Heart failure, unspecified HF chronicity, unspecified heart failure type (CMS/HCC) Start: 06-19-2023 End: 06-19-2023 ambulatory ALBA MAIER Not Available Start: 06-19-2023 End: 06-19-2023 ambulatory ALBA MAIER Not Available Procedures Date Procedure Procedure Detail Performing Clinician Start: 02-27-2023 H/O: hysterectomy H/O: hysterectomy Alba Maier CREDIT RISK MANAGEMENT DIRECTOR Work Phone: Start: 02-27-2023 History of cholecystectomy S/P cholecystectomy Alba hu CREDIT RISK MANAGEMENT DIRECTOR Work Phone: Plan of Treatment Date Care Activity Detail Author Start: 03-12-2024 Medicare Annual Well ness (AWV) Medicare Annual Wellness (AWV) [facility] Start: 07-22-2023 End: 07-22-2023 Patient encounter procedure 07/22/2023 11:00 AM EST Office Visit [facility] [address] [facility] [address] Alba Maier, CREDIT RISK MANAGEMENT DIRECTOR [address] [facility] [place] [address] [facility] Start: 06-24-2023 End: 06-24-2023 Patient encounter procedure 06/24/2023 11:30 AM EST Office Visit [facility] [address] [facility] [place] [address] Alba Maier, CREDIT RISK MANAGEMENT DIRECTOR [address] [facility] [place] [address] [facility] Immunizations Immunization Date Immunization Notes Care Provider [facility] 03-12-2023 Influenza, High-dose Seasonal, Quadrivalent, Preservative Free Alba Maier CREDIT RISK MANAGEMENT DIRECTOR Work Phone: [facility] 03-09-2022 Influenza, High-dose Seasonal, Quadrivalent, Preservative Free Alba Maier CREDIT RISK MANAGEMENT DIRECTOR Work Phone: [facility] 03-09-2022 Moderna Bivalent Hess ster Vaccination Alba Maier CREDIT RISK MANAGEMENT DIRECTOR Work Phone: [facility] 02-22-2021 Influenza, High-dose Seasonal, Quadrivalent, Preservative Free Alba Maier CREDIT RISK MANAGEMENT DIRECTOR Work Phone: [facility] 02-17-2020 Influenza, High-dose Seasonal, Quadrivalent, Preservative Free Alba Maier CREDIT RISK MANAGEMENT DIRECTOR Work Phone: [facility] 02-16-2020 Influenza, Seasonal, Quadrivalent, Adjuvanted Alba Maier CREDIT RISK MANAGEMENT DIRECTOR Work Phone: [facility] 02-13-2019 influenza, high dose seasonal, preservative-free Alba Maier CREDIT RISK MANAGEMENT DIRECTOR Work Phone: [facility] 01-14-2018 influenza, high dose seasonal, preservative-free Alba Maier CREDIT RISK MANAGEMENT DIRECTOR Work Phone: [facility] 02-18-2017 influenza, high dose seasonal, preservative-free Alba Maier CREDIT RISK MANAGEMENT DIRECTOR Work Phone: [facility] 01-18-2017 influenza, high dose seasonal, preservative-free Alba Maier CREDIT RISK MANAGEMENT DIRECTOR Work Phone: [facility] 03-12-2016 Influenza, High-dose Seasonal, Quadrivalent, Preservative Free Alba Maier CREDIT RISK MANAGEMENT DIRECTOR Work Phone: [facility] 05-02-2015 pneumococcal conjuga te vaccine, 13 valent Alba Maier CREDIT RISK MANAGEMENT DIRECTOR Work Phone: [facility] 02-26-2015 zoster vaccine, live Alba Maier CREDIT RISK MANAGEMENT DIRECTOR Work Phone: [facility] 04-02-2014 pneumococcal polysaccharide vaccine, 23 valent Alba Maier CREDIT RISK MANAGEMENT DIRECTOR Work Phone: [facility] 03-05-2007 influenza virus vacc ine, whole virus Alba Maier CREDIT RISK MANAGEMENT DIRECTOR Work Phone: [facility] Payers Date Payer Category Payer Medicare [id number] 2023 Unknown AARP AARP [id number] 2023-Present [address] [place] [address] [id number] 2023 Unknown [id number] 2002 Medicare [id number] 2002 Medicare [id number] 1937 Unknown [id number] 1937 Unknown [id number] 1937 Unknown [id number] 1937 Unknown [id number] 1937 Unknown [id number] 1937 Unknown [id number] 1937 Unknown [id number] 1937 Unknown [id number] Social History Date Type Detail Facility Start: 03-12-2023 Tobacco smoking stat [facility] Never smoked tobacco [facility] Start: 03-12-2023 Tobacco use and exposure Smoke less tobacco non-user [facility] Start: 06-19-2023 End: 06-24-2023 Alcohol intake Ex-drinker (finding) [facility] Start: 03-05-2023 End: 03-12-2023 [facility] Start: 03-05-2023 End: 03-12-2023 Humiliation, Afraid, Rape, and Kick questionnaire [HARK] [facility] Within the last year , have you been afraid of your partner or ex-partner? No [facility] Do you belong to any clubs or organizations such as yarsani groups, unions, fraternal or athletic groups, or school groups? Yes [facility] Are you now , , , , never or living with a partner? [facility] How often to you hav e a drink containing alcohol? Never [facility] How many standard dr inks containing alcohol do you have on a typical day? Patient does not drink [facility] How hard is it for y ou to pay for the very basics like food, housing, medical care, and heating Not very hard [facility] Do you feel stress - tense, restless, nervous, or anxious, or unable to sleep at night because your mind is troubled all the time - these days [OSQ] Only a little [facility] (I/We) worried wheth er (my/our) food would run out before (I/we) got money to buy more. Never true [facility] Start: 03-12-2023 Alcohol Comment caffeine: 2-3 cups per day [facility] Start: 1935 Sex Assigned At Female [facility] Start: 03-05-2023 Gender identity Identifies as female gender (finding) [facility] Start: 03-05-2023 Sexual orientation Heterosexual (fin ding) [facility] Clinical Notes 06-24-2023 to 11-22-2023 Alba Maier, ENRIQUE - 06/24/2023 11:30 AM EST Note Date & Type Note Facility 11-22-2023 Note [facility] Note Reason for cardiology visit: Patient here for 4 week follow up Holter monitor and hypertension. Chief Complaint: Legs edema HPI: Radha Madrid is a 88 y.o. female who is here for follow-up visit. She states that she reduced her Lasix to 20 mg daily because of frequent urination during the night. She still has significant legs edema. She still sleeps most of the time in the recliner. She is in the middle of moving to another house. She tries to follow low-salt diet but she does not have a chance to elevate her legs a lot. She states that her breathing is better. She denies any chest discomfort at rest or with exertion. She denies palpitations or orthopnea or paroxysmal nocturnal dyspnea. 10/23/2023 Radha Madrid is a 88 y.o. female who was seen recently by a nurse practitioner. She has history of A-fib and hypertension. She underwent an attempt of cardioversion 01/02/[address] Osman and she went to sinus rhythm briefly but quickly she was back in A-fib before discharge. She saw the nurse practitioner last week because of worsening shortness of breath and legs edema and she was told to take Lasix 20 mg twice daily with potassium. Also the patient complained of nausea with amiodarone and she stopped it. Also she was not able to swallow Cardizem capsules therefore it was switched to tablets but she never picked up the prescription. Patient is here today for follow-up visit with her daughter. She states that she has been feeling better. Her breathing is better. Her legs edema is better than before. Of note the patient sleeps in recliner with her legs down. She tried to sleep in bed but she has difficulty breathing. In fact she snores loudly and her daughter thinks that probably she has sleep apnea. The patient declines sleep study because she would not wear CPAP. Patient thinks she is taking atenolol 25 mg daily which she thinks has been on all along but our records does not show. She did not bring her medications with her. Otherwise she denies any dizziness or palpitations or shortness of breath with activities. She states that her blood pressure is always normal at home but she thinks it is high today because she did not take the Lasix and because she was anxious about coming here. Cardiology ROS: Review of Systems Constitutional: Positive for weight gain (12# since 10/23/2023). Cardiovascular: Positive for dyspnea on exertion (improving) and leg swelling (worsening). Gastrointestinal: Positive for nausea. All other systems reviewed and are negative. Past Medical History She has a past medical history of Abnormal ECG, Arrhythmia, Atrial fibrillation (CMS/HCC), and Hypertension. Surgical History She has a past surgical history that includes Appendectomy; Cataract extraction; Tonsillectomy; Hysterectomy; Cholecystectomy; and Replacement total knee oncologic. Social History She reports that she has never smoked. She has never used smokeless tobacco. She reports that she does not currently use alcohol. She reports that she does not use drugs. Family History Family History Problem Relation Name Age of Onset Stroke Mother Stroke Father Stroke Sister Heart attack Brother Cancer Brother Allergies Ibuprofen, Nitrofurantoin macrocrystal, Metoprolol, Acetaminophen, Amiodarone, Nitrofurantoin, and Celecoxib Medications Current Outpatient Medications: ALPRAZolam (Xanax) 0.5 mg tablet, Take 0.5 mg by mouth every 12 (twelve) hours., Disp: , Rfl: apixaban (Eliquis) 5 mg tablet, Take 1 tablet (5 mg) by mouth in the morning and at bedtime., Disp: 60 tablet, Rfl: 11 atenolol (Tenormin) 25 mg tablet, Take 1 tablet (25 mg) by mouth in the morning., Disp: 90 tablet, Rfl: 3 furosemide (Lasix) 20 mg tablet, Take 1 tablet (20 mg) by mouth if needed in the morning and at bedtime (take for next 2-3 days 20 mg twice a day for fluid retention, leg swelling and shortness of breath; may repeat this as needed.)., Disp: 20 tablet, Rfl: 2 furosemide (Lasix) 20 mg tablet, Take 1 tablet (20 mg) by mouth in the morning and at bedtime., Disp: 180 tablet, Rfl: 3 meloxicam (Mobic) 15 mg tablet, Take 15 mg by mouth in the morning., Disp: , Rfl: potassium chloride CR (Klor-Con M10) 10 mEq ER tablet, Take 1 tablet (10 mEq) by mouth if needed each day (take daily with additional lasix/furosemide for fluid retention). Do not crush or chew., Disp: 20 tablet, Rfl: 11 Last Recorded Vitals Visit Vitals OB Status Hysterectomy Smoking Status Never Physical Examination: GENERAL: alert and oriented x3, well developed, in no acute distress. HEAD: atraumatic, normocephalic. EYES: KARRIE, EOMI. NECK: trachea midline, no JVD present, no carotid bruits present. CARDIAC: Irregular irregularity, normal S1 and S2, no gallop or murmur RESPIRATORY: CTAB, no increased effort of breathing, no rales, rhonchi, or wheezing. ABDOMEN: soft, nontender, n (more content not included)... [facility] 10-23-2023 Note [facility] Progress Note Reason for cardiology visit: Patient here for 1 week follow up labs per Iva Joseph CNP. HPI: Radha Madrid is a 88 y.o. female who was seen recently by a nurse practitioner. She has history of A-fib and hypertension. She underwent an attempt of cardioversion 10/02/[address] Osman and she went to sinus rhythm briefly but quickly she was back in A-fib before discharge. She saw the nurse practitioner last week because of worsening shortness of breath and legs edema and she was told to take Lasix 20 mg twice daily with potassium. Also the patient complained of nausea with amiodarone and she stopped it. Also she was not able to swallow Cardizem capsules therefore it was switched to tablets but she never picked up the prescription. Patient is here today for follow-up visit with her daughter. She states that she has been feeling better. Her breathing is better. Her legs edema is better than before. Of note the patient sleeps in recliner with her legs down. She tried to sleep in bed but she has difficulty breathing. In fact she snores loudly and her daughter thinks that probably she has sleep apnea. The patient declines sleep study because she would not wear CPAP. Patient thinks she is taking atenolol 25 mg daily which she thinks has been on all along but our records does not show. She did not bring her medications with her. Otherwise she denies any dizziness or palpitations or shortness of breath with activities. She states that her blood pressure is always normal at home but she thinks it is high today because she did not take the Lasix and because she was anxious about coming here. Cardiology ROS: All systems were reviewed and they were negative except for the positive findings noted in the history above Past Medical History She has a past medical history of Abnormal ECG, Arrhythmia, Atrial fibrillation (CMS/HCC), and Hypertension. Surgical History She has a past surgical history that includes Appendectomy; Cataract extraction; Tonsillectomy; Hysterectomy; Cholecystectomy; and Replacement total knee oncologic. Social History She reports that she has never smoked. She has never used smokeless tobacco. She reports that she does not currently use alcohol. She reports that she does not use drugs. Family History Family History Problem Relation Name Age of Onset Stroke Mother Stroke Father Stroke Sister Heart attack Brother Cancer Brother Allergies Ibuprofen, Nitrofurantoin macrocrystal, Metoprolol, Acetaminophen, Amiodarone, Nitrofurantoin, and Celecoxib Medications Current Outpatient Medications: ALPRAZolam (Xanax) 0.5 mg tablet, Take 0.5 mg by mouth every 12 (twelve) hours., Disp: , Rfl: apixaban (Eliquis) 5 mg tablet, Take 1 tablet (5 mg) by mouth in the morning and at bedtime., Disp: 60 tablet, Rfl: 11 furosemide (Lasix) 20 mg tablet, Take 1 tablet (20 mg) by mouth if needed in the morning and at bedtime (take for next 2-3 days 20 mg twice a day for fluid retention, leg swelling and shortness of breath; may repeat this as needed.)., Disp: 20 tablet, Rfl: 2 meloxicam (Mobic) 15 mg tablet, Take 15 mg by mouth in the morning., Disp: , Rfl: potassium chloride CR (Klor-Con M10) 10 mEq ER tablet, Take 1 tablet (10 mEq) by mouth if needed each day (take daily with additional lasix/furosemide for fluid retention). Do not crush or chew., Disp: 20 tablet, Rfl: 11 furosemide (Lasix) 20 mg tablet, Take 1 tablet (20 mg) by mouth in the morning and at bedtime., Disp: 180 tablet, Rfl: 3 Patient thinks that she is taking atenolol 25 mg daily Last Recorded Vitals Visit Vitals BP (!) 168/93 (BP Location: Left arm, Patient Position: Sitting) Pulse 68 Ht 1.676 m (5' 6 ) Wt 95.7 kg (211 lb) SpO2 97% BMI 34.06 kg/m??? OB Status Hysterectomy Smoking Status Never BSA 2.11 m??? Physical Examination: GENERAL: alert and oriented x3, well developed, in no acute distress. HEAD: atraumatic, normocephalic. EYES: KARRIE, EOMI. NECK: trachea midline, no JVD present, no carotid bruits present. CARDIAC: S1, S2 present. Irregular irregularity. No murmur, rubs, or gallops. RESPIRATORY: CTAB, no increased effort of breathing, no rales, rhonchi, or wheezing. ABDOMEN: soft, nontender, nondistended. EXTREMITIES: +1 edema bilaterally with varicose veins bilaterally and skin discoloration consistent with venous stasis NEURO: strength/sensation equal and symmetric in bilateral upper and lower extremities. PSYCH: appropriate mood, affect, and judgement. Labs 10/23/2023 White blood count 7.9, hemoglobin 11.6, hematocrit 37.8, platelets 280 Sodium 144, potassium 3.8, BUN 16, creatinine 1.1, GFR 57, glucose 86, calcium 8.3 BNP 1632 Labs 09/23/2023 White blood count 5.9, hemoglobin 13.5, hematocrit 42.5, platelets 232 PT 11, INR 1.04 Sodium 138, potassium 3.5, BUN 16, creatinine 1.09, GFR 58, glucose 106, calcium 9 T (more content not included)... [facility] 10-18-2023 Note [facility] currently very fluid overloaded with significant SOB, Orthopnea, BLE edema and weight gain Continue GDMT- Currently she takes lasix 20 mg prn for Diuretic therapy. States she has needed this more since Cardioversion. Instructed pt to increase lasix to 20 mg twice a day for the next 3 days with potassium- repeat BMP and RTC next week to re-evaluate. D/W pt that she may repeat this regime as needed for fluid retention/leg swelling/SOB/weight gain and she voiced understanding. Monitor daily weights, I&O, fluid restriction 1.5-2L/day, renal function and electrolytes- [facility] 10-18-2023 Note As above [facility] 10-18-2023 Note Patient here for fol low up failed cardioversion. She is still taking amiodarone but does not like the way it makes her feel and she is going to stop it. She is c/o increased LE edema and SOB. Denies chest pain, palpitations, lightheadedness/syncope, and bleeding on Eliquis. Review of Systems Cardiovascular: Positive for dyspnea on exertion and leg swelling (worsening). Gastrointestinal: Positive for nausea. All other systems reviewed and are negative. [facility] 10-18-2023 Note [facility] CARDIOLOGY PROGR ESS NOTE HPI: Radha Madrid is a 88 y.o. female here for A fib s/p recent cardioversion HPI 88 y.o. year old with past medical history of htn, afib, hx traumatic SAH, chronic knee pain on mobic, chronic LE edema. Increase leg swelling, weight gain, worsening ROCHE, + orthopnea and needing to sit up when sleeping, and increased leg swelling C/O Nausea with amiodarone and will not continue to take this med. States she had hives from beta tarah and capsules she can not take r/t swallowing issues. States she has been fatigued and increased SOB with exertion, weight gain, increased leg swelling and having to sleep with HOB at higher elevation. States she has recently sold her home and is in process of packing and moving out of home- but has not determined where she is moving too. Review of Systems Constitutional: Positive for fatigue and unexpected weight change. Weight gain Respiratory: Positive for shortness of breath. + orthopnea Cardiovascular: Positive for leg swelling. Neurological: Negative. All other systems reviewed and are negative. Previous HPI per Dr Osman Reason for visit: afib HPI: Radha Madrid is a 88 y.o. year old with past medical history of htn, afib, hx traumatic SAH, chronic knee pain on mobic, chronic LE edema. She was referred to us for A-fib management and seen by Jose Daniel NUNEZ. she had A-fib for several years, has never been cardioverted. She used to be on a beta-tarah but developed a rash/hives back in 2020 and that was stopped. For some reason she was never restarted any type of rate control but states has never had issues with fast heart rate up until the last month to 6 weeks. she has noticed racing heart, and a mild increase in lower extremity swelling. she has been on Eliquis 2.5 mg twice daily despite not meeting guideline criteria's, age greater than 80, weight 100 kg, creatinine normal and tbis was increased to full dose 5 mg twice daily to see if she can tolerate. She does note frequent falls but does have history of a traumatic fall which was likely due to her trying to carry a chair down the stairs backwards. Subsequently 7-day event monitor was placed which showed that she was still chronic atrial fibrillation with a ventricular rate ranging from 51 beats a minute- 118 beats a minute. no significant pauses were noted. nocturnally she was noted to have ventricular rates in the 50s. she is currently Cardizem 120 mg daily. Visit Vitals BP 142/88 (BP Location: Left arm, Patient Position: Sitting) Pulse 61 Ht 1.676 m (5' 6 ) Wt 98.4 kg (217 lb) SpO2 93% BMI 35.02 kg/m??? OB Status Hysterectomy Smoking Status Never BSA 2.14 m??? Allergies Allergen Reactions Ibuprofen Anaphylaxis Other Reaction(s): swelling of face Nitrofurantoin Macrocrystal Anaphylaxis Metoprolol Hives Other reaction(s): hives, SOB Acetaminophen Unknown Nitrofurantoin Hives Celecoxib GI intolerance Other Reaction(s): breakout/facial swelling Medications: Current Outpatient Medications on File Prior to Visit Medication Sig Dispense Refill ALPRAZolam (Xanax) 0.5 mg tablet Take 0.5 mg by mouth every 12 (twelve) hours. apixaban (Eliquis) 5 mg tablet Take 1 tablet (5 mg) by mouth in the morning and at bedtime. 60 tablet 11 furosemide (Lasix) 20 mg tablet Take 1 tablet (20 mg) by mouth if needed each day (for le edema, 2-3lbs/day or 5-7lbs/week). 30 tablet 11 [DISCONTINUED] amiodarone (Pacerone) 200 mg tablet Take 1 tablet (200 mg) by mouth in the morning. 30 tablet 11 meloxicam (Mobic) 15 mg tablet Take 15 mg by mouth in the morning. [DISCONTINUED] dilTIAZem CD (Cardizem CD) 120 mg 24 hr capsule Take 1 capsule (120 mg) by mouth in the morning. (Patient not taking: Reported on 10/18/2023) 30 capsule 11 No current facility-administered medications on file prior to visit. Physical Exam: Constitutional: Appearance: Normal appearance. Without apparent distress, chronically ill HENT: Head: Normocephalic and atraumatic. Nose: Nose normal. Mouth/Throat: Mouth: Mucous membranes are moist. Eyes: Extraocular Movements: Extraocular movements intact. Conjunctiva/sclera: Conjunctivae normal. Neck: Vascular: No JVD. Cardiovascular: Rate and Rhythm: Normal rate and regular rhythm. Pulses: Dorsalis pedis pulses are 3 on the right side and 3on the left side. Posterior tibial pulses are 3 on the right side and 3 on the left side. Heart sounds: Normal heart sounds, S1 normal and S2 normal. Pulmonary: Effort: Pulmonary effort is normal. Breath sounds: Diminished b/l posterior bases. Abdominal: General: Bowel sounds are normal. Palpations: Abdomen is soft. Musculoskeletal: General: Normal range of motion. Ambulates with rolling walker Right lower leg: No edema. Left lower leg: No edema. Skin: General: Skin is warm and dry. Capillary Refill: Capillary refill takes less than 2 seconds. Neurological: General (more content not included)... [facility] 10-18-2023 Note S/P cardioversion sh e was noted to convert to SR for a very short time and converted back into Afib prior to DC home - afib on ECG today -[id number] at least 4 for age x 2, gender, hypertension - when she did have her subarachnoid bleed she was taking 500 mg of aspirin for headaches; advise she stop taking aspirin altogether, advised that she reduce dose of Mobic and look for alternative pain medications Remains on eliquis anticoagulation and no bleeding tendencies voiced States she can not continue to take amiodarone r/t GI side effects, and she can't take diltiazem as a capsule r/t coating causes it to get stuck in my throat Continue eliquis anticoagulation, diltiazem 120 gm tablet for rate management [facility] 10-02-2023 Note DIRECT CARDIOVERSION PROCEDURE NOTE Date: 10/02/2023. Type of procedure: DC Cardioversion. Performed by: Matthew Osman MD Informed consent: Signed by patient. Preparation and technique: Patient was brought into the procedure room. After an informed consent was obtained following a discussion with the patient where I explained the risk and benefit of the procedure that is not limited to skin shah, fluid in the lungs, heart attack, stroke, or even , though that is very rare. Patches were placed in anteroposterior direction and once patient was made comfortable with Versed 1mg and Fentanyl 25mcg. Following sedation, the patient underwent synchronized cardioversion using 360J which converted to sinus rhythm. Post procedure, the patient was stable. No complications noted. Plan: Continue anticoagulation. Matthew Osman MD Cardiac Electrophysiology [facility] 10-02-2023 Note Patient: Radha Goddard nk Procedure Information Date/Time: 10/02/2330 Procedure: Cardioversion Location: [facility] CASH MANAGEMENT OFFICER HOLDING ROOM / [facility] (Cath) Providers: Matthew Osman MD Clinical information reviewed: Allergies Meds OB Status Physical Exam Airway Mallampati: II TM distance: >3 FB Neck ROM: full Cardiovascular Dental Pulmonary Abdominal Anesthesia Plan ASA 2 CSE Anesthetic plan and risks discussed with patient. Use of blood products discussed with patient who. Additional Equipment Requests [facility] 08-20-2023 Note MA Electrophysiology Consult Note Reason for visit: afib HPI: Radha Madrid is a 88 y.o. year old with past medical history of htn, afib, hx traumatic SAH, chronic knee pain on mobic, chronic LE edema. She was referred to us for A-fib management and seen by Jose Daniel NUNEZ. she had A-fib for several years, has never been cardioverted. She used to be on a beta-tarah but developed a rash/hives back in 2020 and that was stopped. For some reason she was never restarted any type of rate control but states has never had issues with fast heart rate up until the last month to 6 weeks. she has noticed racing heart, and a mild increase in lower extremity swelling. she has been on Eliquis 2.5 mg twice daily despite not meeting guideline criteria's, age greater than 80, weight 100 kg, creatinine normal and tbis was increased to full dose 5 mg twice daily to see if she can tolerate. She does note frequent falls but does have history of a traumatic fall which was likely due to her trying to carry a chair down the stairs backwards. Subsequently 7-day event monitor was placed which showed that she was still chronic atrial fibrillation with a ventricular rate ranging from 51 beats a minute- 118 beats a minute. no significant pauses were noted. nocturnally she was noted to have ventricular rates in the 50s. she is currently Cardizem 120 mg daily. PMH: Past Medical History: Diagnosis Date Abnormal ECG Arrhythmia Atrial fibrillation (CMS/HCC) Hypertension PSH: Past Surgical History: Procedure Laterality Date APPENDECTOMY CATARACT EXTRACTION CHOLECYSTECTOMY HYSTERECTOMY REPLACEMENT TOTAL KNEE ONCOLOGIC TONSILLECTOMY SH: Social Determinants of Health Tobacco Use: Low Risk (08/20/2023) Patient History Smoking Tobacco Use: Never Smokeless Tobacco Use: Never Passive Exposure: Not on file Alcohol Use: Not on file Financial Resource Strain: Not on file Food Insecurity: Not on file Transportation Needs: Not on file Physical Activity: Not on file Stress: Not on file Social Connections: Not on file Intimate Partner Violence: Unknown (07/11/2023) [place] Safety & Environment Fear of Current or Ex-Partner: Not on file Emotionally Abused: Not on file Physically Abused: Not on file Sexually Abused: Not on file Physically or Sexually Abused: Not on file Depression: Not on file Housing Stability: Not on file Utilities: Not on file Allergies: Allergies Allergen Reactions Ibuprofen Anaphylaxis Other Reaction(s): swelling of face Nitrofurantoin Macrocrystal Anaphylaxis Metoprolol Hives Other reaction(s): hives, SOB Acetaminophen Unknown Nitrofurantoin Hives Celecoxib GI intolerance Other Reaction(s): breakout/facial swelling Weight: 101kg Visit Vitals BP 130/88 (BP Location: Left arm, Patient Position: Sitting, BP Cuff Size: Adult) Pulse 78 Resp 12 Ht 1.651 m (5' 5 ) Wt 101 kg (222 lb) SpO2 98% BMI 36.94 kg/m??? Smoking Status Never BSA 2.15 m??? Meds: Current Outpatient Medications on File Prior to Visit Medication Sig Dispense Refill ALPRAZolam (Xanax) 0.5 mg tablet Take 0.5 mg by mouth every 12 (twelve) hours. apixaban (Eliquis) 5 mg tablet Take 1 tablet (5 mg) by mouth in the morning and at bedtime. 60 tablet 3 dilTIAZem CD (Cardizem CD) 120 mg 24 hr capsule Take 1 capsule (120 mg) by mouth in the morning. 30 capsule 11 furosemide (Lasix) 20 mg tablet Take 1 tablet (20 mg) by mouth if needed each day (for le edema, 2-3lbs/day or 5-7lbs/week). 30 tablet 11 meloxicam (Mobic) 15 mg tablet Take 15 mg by mouth in the morning. No current facility-administered medications on file prior to visit. ROS: Cardio Basic Cardiovascular Symptoms: no lightheadedness, no leg edema, no syncope, no orthopnea, no PND, no claudication, Constitutional Constitutional: no fever, no night sweats, no significant weight gain, no significant weight loss, no exercise intolerance Eyes Eyes: no dry eyes, no irritation, no vision change ENMT Ears: no difficulty hearing, no ear pain Nose: no frequent nosebleeds, Mouth/Throat: no sore throat, no bleeding gums, no snoring, no dry mouth, no mouth ulcers, no oral abnormalities, no teeth problems Respiratory Respiratory: no cough, no wheezing, no coughing up blood, no sleep apnea Musculoskeletal Musculoskeletal: no muscle aches, no muscle weakness, joint pain+, no back pain, no swelling in the extremities Integumentary Skin no rash, no ulcer, no varicosities, no discoloration, no pruritus Neurologic Neurologic: no loss of consciousness, no weakness, no numbness, no seizures, no dizziness, no headaches Psychiatric Psych: no depression, feeling safe in relationship, no alcohol abuse, Hematologic/Lymphatic Hematologic/Lymphatic no swollen glands, no bruising Physical Exam: Constitutional General Appearance: well-nourished, well-developed, appears stated age Level of Distress: comfortable Psyc (more content not included)... [facility] 07-15-2023 Note [place] [facility] Consult Note Reason for visit: afib HPI: Radha Madrid is a 88 y.o. year old with past medical history of htn, afib, hx traumatic SAH, chronic knee pain on mobic, chronic LE edema. she was referred to us for A-fib management she had A-fib for several years, has never been cardioverted. She used to be on a beta-tarah but developed a rash/hives back in 2020 and that was stopped. For some reason she was never restarted any type of rate control but states has never had issues with fast heart rate up until the last month to 6 weeks she has noticed racing heart, and a mild increase in lower extremity swelling she has been on Eliquis 2.5 mg twice daily despite not meeting guideline criteria's, age greater than 82, weight 100 kg, creatinine normal. we discussed increasing Eliquis to full dose 5 mg twice daily to see if she can tolerate. she is aware to monitor for any signs of bleeding and to be mindful for any falls. She does note frequent falls but does have history of a traumatic fall which was likely due to her trying to carry a chair down the stairs backwards. PMH: Past Medical History: Diagnosis Date Abnormal ECG Arrhythmia Atrial fibrillation (CMS/HCC) Hypertension PSH: Past Surgical History: Procedure Laterality Date APPENDECTOMY CATARACT EXTRACTION CHOLECYSTECTOMY HYSTERECTOMY REPLACEMENT TOTAL KNEE ONCOLOGIC TONSILLECTOMY SH: Social Determinants of Health Tobacco Use: Not on file Alcohol Use: Not on file Financial Resource Strain: Not on file Food Insecurity: Not on file Transportation Needs: Not on file Physical Activity: Not on file Stress: Not on file Social Connections: Not on file Intimate Partner Violence: Unknown (07/11/2023) [place] Safety & Environment Fear of Current or Ex-Partner: Not on file Emotionally Abused: Not on file Physically Abused: Not on file Sexually Abused: Not on file Physically or Sexually Abused: Not on file Depression: Not on file Housing Stability: Not on file Utilities: Not on file Allergies: Allergies Allergen Reactions Ibuprofen Anaphylaxis Other Reaction(s): swelling of face Nitrofurantoin Macrocrystal Anaphylaxis Acetaminophen Unknown Nitrofurantoin Hives Celecoxib GI intolerance Other Reaction(s): breakout/facial swelling Metoprolol Rash Other reaction(s): Unknown Weight: 100kg Visit Vitals BP 130/88 (BP Location: Left arm, Patient Position: Sitting) Pulse 86 Ht 1.651 m (5' 5 ) Wt 100 kg (221 lb) SpO2 97% BMI 36.78 kg/m??? BSA 2.14 m??? Meds: Current Outpatient Medications on File Prior to Visit Medication Sig Dispense Refill ALPRAZolam (Xanax) 0.5 mg tablet Take 0.5 mg by mouth every 12 (twelve) hours. amLODIPine (Norvasc) 5 mg tablet Take 5 mg by mouth in the morning. Eliquis 2.5 mg tablet Take 2.5 mg by mouth in the morning and at bedtime. meloxicam (Mobic) 15 mg tablet Take 15 mg by mouth in the morning. No current facility-administered medications on file prior to visit. ROS: Cardio Basic Cardiovascular Symptoms: no lightheadedness, no leg edema, no syncope, no orthopnea, no PND, no claudication, Constitutional Constitutional: no fever, no night sweats, no significant weight gain, no significant weight loss, no exercise intolerance Eyes Eyes: no dry eyes, no irritation, no vision change ENMT Ears: no difficulty hearing, no ear pain Nose: no frequent nosebleeds, Mouth/Throat: no sore throat, no bleeding gums, no snoring, no dry mouth, no mouth ulcers, no oral abnormalities, no teeth problems Respiratory Respiratory: no cough, no wheezing, no coughing up blood, no sleep apnea Musculoskeletal Musculoskeletal: no muscle aches, no muscle weakness, joint pain+, no back pain, no swelling in the extremities Integumentary Skin no rash, no ulcer, no varicosities, no discoloration, no pruritus Neurologic Neurologic: no loss of consciousness, no weakness, no numbness, no seizures, no dizziness, no headaches Psychiatric Psych: no depression, feeling safe in relationship, no alcohol abuse, Hematologic/Lymphatic Hematologic/Lymphatic no swollen glands, no bruising Physical Exam: Constitutional General Appearance: well-nourished, well-developed, appears stated age Level of Distress: comfortable Psychiatric Mental Status: alert, normal affect Orientation: oriented to time, place, and person Insight: good judgement Eyes Lids and Conjunctivae: non-injected, no xanthelasma ENMT Ears: no lesions on external ear Nose: no lesions on external nose Oropharynx: no cyanosis, no pallor Neck Neck: supple, trachea midline Carotid Arteries: bilateral normal upstroke, no bruits Jugular Veins: normal jugular venous pressure Thyroid: not enlarged Lungs Respiratory Effort: unlabored Chest Exam: normal curvature, no thoracic deformity Auscultation: clear, no wheezing, no rales, no rhonchi Cardiovascular Rate And Rhythm (more content not included)... [facility] 07-15-2023 Note New patient here to establish care. Ref from Alba Maier CNP for chronic afib. Echo and EKG were performed 2 weeks ago. Says she was diagnosed with afib years ago but PCP never referred her to cardiology. Sometimes she feels her heart go fast and feels like she tries to catch her breath. Denies chest pain, lightheadedness/syncope, and bleeding on Eliquis. PCP recently raised amlodipine to 5mg. Diastolic BP is usually in the 90's 100's she says. Review of Systems Cardiovascular: Positive for leg swelling and palpitations. All other systems reviewed and are negative. [facility] 06-24-2023 History of Present illness Narrative Radha Madrid is a 88 y.o. female presents with chief complaint of Hypertension HPI: HPI Patient presents today for 1 week follow up on BP. She states she has not noticed a difference. She did get her new medication on Saturday and started taking it. She does have a list of bp readings as well. SUBJECTIVE: MEDICATIONS: Current Outpatient Medications Medication Instructions ALPRAZolam (XANAX) 0.5 mg, Oral, Every 12 hours amLODIPine (NORVASC) 5 mg, Oral, Daily Eliquis 2.5 mg, Oral, Every 12 hours, Pt cuts back to one a day if she sees bruising loperamide (IMODIUM) 2 mg, Oral, 4 times daily PRN meloxicam (Mobic) 15 MG tablet 1 tablet, Oral, Daily REVIEW OF SYMPTOMS: Review of Systems Constitutional: Negative for chills and fatigue. HENT: Negative for ear discharge, ear pain, rhinorrhea and sore throat. Eyes: Negative for pain and redness. Respiratory: Negative for cough and chest tightness. Cardiovascular: Negative for chest pain and palpitations. Gastrointestinal: Negative for abdominal distention and abdominal pain. Genitourinary: Negative for difficulty urinating and frequency. Musculoskeletal: Negative for arthralgias and gait problem. Skin: Negative. Neurological: Negative for dizziness and numbness. Endocrine: Negative. Allergic/Immunologic: Negative. OBJECTIVE: Visit Vitals BP 124/74 Pulse 99 Ht 5' 5 Wt 218 lb 9.6 oz SpO2 96% BMI 36.38 kg/m Smoking Status Never BSA 2.13 m Physical Exam Vitals reviewed. Cardiovascular: Rate and Rhythm: Normal rate and regular rhythm. Pulses: Normal pulses. Heart sounds: Normal heart sounds. Pulmonary: Effort: Pulmonary effort is normal. Breath sounds: Normal breath sounds. Abdominal: General: Abdomen is flat. Bowel sounds are normal. Palpations: Abdomen is soft. Musculoskeletal: General: Normal range of motion. Skin: General: Skin is warm and dry. Neurological: General: No focal deficit present. Mental Status: She is oriented to person, place, and time. ASSESSMENT AND PLAN: Assessment/Plan Diagnoses and all orders for this visit: Chronic atrial fibrillation (HCC) (CMS/HCC)-stable Essential hypertension (CMS/HCC)-Discussed current management plan. Goal BP less then 130/80. Discussed heart healthy diet, increase fruits and vegetables, limit salt intake. Complications of uncontrolled blood pressure includes cardiovascular disease, kidney disease, and stroke. Patient instructed to monitor BP's 1-2 times a week, keep a log, and bring to next visit. Barriers to care and medication compliance discussed. Patient voices understanding of meds. documented in this encounter [facility] Healthcare Evaluation note Diagnosis Chronic atrial fibrillation (HCC) (CMS/HCC)- Primary Atrial fibrillation Heart failure, unspecified HF chronicity, unspecified heart failure type (CMS/HCC) documented [facility] this encounter [facility]* Diagnosis Chronic atrial fibrillation (HCC) (CMS/HCC)- Primary Atrial fibrillation Essential hypertension (CMS/HCC) Unspecified essential hypertension documented [facility] this encounter [facility] (narrative)* Consultation (Routine) - Pending Review Specialty Diagnoses / Procedures Referred By Contac t Referred To Contact Cardiology Diagnoses Chronic atrial fibrillation (HCC) (CMS/HCC) Heart failure, unspecified HF chronicity, unspecified heart failure type (CMS/HCC) Procedures [place] OFFICE/OUTPATIENT NEW HIGH MDM 60 MINUTES Alba Maier NP [address] [place] [address] Referral ID Status Reason Start Date Expiration Date Visits Requested Visits Authorized [id number] Pending Review Specialty Services Required 06/23/2023 12/20/2023 1 1 [facility] Summary Purpose Family History No Family History Records FoundNo Family History Records Found Advance Directives No Advanced Directives Records FoundNo Advanced Directives Records Found Additional Source Comments Care Teams (unrecognized sec tion and content) [employer] [facility] Administrator Relationship Specialty Start Date End Date Radha Bruno MD [address] [place] [address] PCP - ACO Reach 10/11/22 Alba Alston MD [address] [place] [address] PCP - General Family Medicine 06/18/23 Alba Maier NP [address] [place] [id number] Nurse Practitioner Family Medicine 06/18/23 [employer] Administrator Relationship Specialty Start Date End Date Radha Bruno MD [address] [place] [address] PCP - ACO Reach 10/11/22 Alba Alston MD [address] [place] [address] PCP - General Family Medicine 06/18/23 Alba Maier NP [address] [place] [id number] Nurse Practitioner Family Medicine 06/18/23 Reason for Visit (unrecogniz ed section and content) Reason Comments Hypertension INFORMATION SOURCE (unrecogn ized section and content) DATE CREATED AUTHOR 11/23/2023 [facility] DATE CREATED AUTHOR AUTHOR'S MANNYCAIT PATRICKSHRAVAN 12/11/2023 [facility] dical Specialists [facility] FOR RECORDS PERTAINING TO PATIENTS WHO ARE OR HAVE BEEN ENROLLED IN A CHEMICAL DEPENDENCY/SUBSTANCEABUSE PROGRAM, SOME INFORMATION MAY BE OMITTED. This clinical summary was aggregated from multiple sources. Caution should be exercised in using it in the provision of clinical care. This summary normalizes information from multiple sources, and as a consequence, information in this document may materially change the coding, format and clinical context of patient data. In addition, data may be omitted in some cases. CLINICAL DECISIONS SHOULD BE BASED ON THE PRIMARY CLINICAL RECORDS. [employer] provides no warranty or guarantee of the accuracy or completeness of information in this document.
[2023-12-12 12:45] VITALS: BP 145/86; PULSE 80; O2SAT 96
--- NOTE | 2023-12-12 12:45 | V.VEINS.HP ---
Vital Signs 12/12/23 08:57 12/12/23 12:45 Height 5 ft 6 in Weight 99 kg BP 145/86 H BP Location Left Brachial BP Position Sitting BP Cuff Size Adult Respiration 18 Pulse 80 Pulse Oximetry (%) 96 Oxygen Delivery Method Room Air Comment The patient's blood pressure is elevated. Varicose Veins Patient in this day for EVLT of left GSV. Celestine Carter MD personally performed the services described in this documentation, as scribed by Bernarda Estes RN in my presence and it is both accurate and complete. Bernarda Carter RN, am scribing for, and in the presence of, Dr. Celestine Muhammad and in the presence of the patient. thigh: bilateral, knee: bilateral, calf: bilateral, ankle: bilateral and rouse: bilateral aching, cramping and tender 6 6 months Worsened in recent months: Yes standing and walking bed rest Reports muscle spasms of leg, erythema, fatigue, heaviness, limb pain, edema and leg edema History of lower extremity trauma: Yes Superficial thrombophlebitis: No Family history of varicose veins: yes Has patient had previous lower extremity venous surgery: No Patient has previously received the following treatment(s) for lower extremity varicose veins: Reports none Does patient have a history of : yes Does patient intend to have future pregnancies: no Has patient had lower extremity venous scan with relux testing: Yes Support hose used: Yes Problems walking or doing physical activity: Yes How does it affect you: unable to walk long distances, stand for long periods of time Do you walk much: No Do you stand much: Yes Medication compliance: good Review of Systems ROS Narrative Celestine Carter MD personally performed the services described in this documentation, as scribed by Bernarda Estes RN in my presence and it is both accurate and complete. Bernarda Carter RN, am scribing for, and in the presence of, Dr. Celestine Muhammad and in the presence of the patient. Status of ROS 10 or more systems reviewed and unremarkable except as noted in history and below Cardiovascular Reports: edema and swelling of feet/ankles Musculoskeletal Reports: extremity pain, extremity swelling, joint pain, joint swelling, muscle cramps and muscle weakness Integumentary/Breast Reports: rash and redness PFSH [facility] Medical History (Updated 12/12/23 @ 08:58 by Benji Wagoner) Phlebitis of superficial vein of left lower extremity ?I80.02 - Phlebitis and thrombophlebitis of superficial vessels of left lower extremity (ICD-10) Atrial fibrillation ?I48.91 - Unspecified atrial fibrillation (ICD-10) 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 ?I83.813 - Varicose veins of bilateral lower extremities with pain (ICD-10) Hypertension ?I10 - Essential (primary) hypertension (ICD-10) Surgical History (Updated 11/28/23 @ 15:11 by Bernarda Estes RN) H/O: hysterectomy ?Z90.710 - Acquired absence of both cervix and uterus (ICD-10) History of tonsillectomy ?Z90.89 - Acquired absence of other organs (ICD-10) History of bladder suspension procedure ?Z98.890 - Other specified postprocedural states (ICD-10) ?Z87.448 - Personal history of other diseases of urinary system (ICD-10) History of left hip replacement ?Z96.642 - Presence of left artificial hip joint (ICD-10) History of knee replacement procedure of right knee ?Z96.651 - Presence of right artificial knee joint (ICD-10) History of angioplasty of peripheral vessel ?Z98.62 - Peripheral vascular angioplasty status (ICD-10) Family History (Updated 11/28/23 @ 15:12 by Bernarda Estes RN) Mother Family history of CHF (congestive heart failure) Family history of hypertension Family history of myocardial infarction 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 Smoking status: Never smoker Non-prescribed substance use: denies use Meds Home Medications and Allergies Home Medications ?Medication ?Instructions ?Recorded ?Confirmed ?Type apixaban 5 mg tablet (Eliquis) 5 mg PO BID 09/23/23 11/28/23 History atenolol 25 mg tablet 25 mg PO DAILY 09/23/23 11/28/23 History carvedilol 12.5 mg tablet 12.5 mg PO DAILY 09/23/23 11/28/23 History meloxicam 15 mg tablet 15 mg PO DAILY 09/23/23 11/28/23 History furosemide 20 mg tablet 20 mg PO Q12H 11/28/23 11/28/23 History Allergies Allergy/AdvReac Type Severity Reaction Status Date / Time acetaminophen [From Tylenol] Allergy Mild Hives Verified 09/23/23 17:21 ibuprofen [From Motrin] Allergy Mild Hives Verified 09/23/23 17:21 metoprolol Allergy Mild Hives Verified 09/23/23 17:21 Coban AdvReac Mild Rash Uncoded 11/28/23 15:09 Exam Narrative Exam Narrative: ICelestine MD personally performed the services described in this documentation, as scribed by Bernarda Estes RN in my presence and it is both accurate and complete. I, Bernarda Estes RN, am scribing for, and in the presence of, Dr. Celestine Muhammad and in the presence of the patient. Constitutional Documenting provider has reviewed patient's vital signs: yes Common normals: oriented x3 Nutritional appearance: overweight Lymph Lymphatic: no lymphedema noted Cardio Peripheral pulses: posterior tibial pulses present and dorsalis pedis pulses present Extremity General: calf tenderness, edema and other findings Right lower extremity: lower leg Right lower leg: inspection and palpation Left lower extremity: lower leg Left lower leg: inspection and palpation Neuro Common normals: oriented x3 Assessment and Plan Assessment and Plan (1) 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: Plan Plan of care: Risks and benefits of the procedure were discussed at length and informed written consent was obtained.? Time-out completed for verification of correct patient, procedure and site.? Staff present during time-out: Bernarda Estes RN,? Celestine Muhammad MD, [facility]. Time Out Time___1058____ Patient prepped and procedure performed in usual sterile fashion. Risk of injury related to use of Diode laser and/or laser devices? __AG___ ? Serial number of laser used :? [id number] Control panel self test performed, electrical cords in good condition, floor is dry, basin of water available, fire extinguisher in close proximity_AG__ Polycarbonate goggles available and Laser warning signs outside of doors___AG___ Eye protection provided to patient and staff in room_AG___ Use of laser retardant drapes and dull blackened instruments as directed__AG___ Use of nonflammable prep solutions and use of saline soaked sponges to protect tissues as indicated _AG___ Length ____42____ cm Laser operated by ____Dr. Muhammad Physician verbal confirmation laser locked in place__AG__ Laser start time (date and time) ____12/12/23@1111 Laser stop time(date and time) ___12/12/23@1117 [place] _8.0___ Average laser use ____2705___Joules Average laser use____338____seconds Pulse continuous ___AG_? Pulse intermittent ___ Amount of Tumescent used __250____ Evaluated patient for signs and symptoms of electrical injury __AG___ ? Skin clear at insertion site __AG___ Patient tolerated procedure well.? Left leg Coban dressing applied to access site.? Applied Left thigh high leg compression stocking. Will return on 12/20/23 for Left leg limited venous ultrasound and exam. Procedures Procedure Note Date of procedure: 12/12/23 Procedure: EVLT of left GSV. Surgeon: Celestine Muhammad
--- NOTE | 2023-12-12 12:51 | V.VEINS.HP ---
Vital Signs 12/12/23 08:57 12/12/23 12:45 Height 5 ft 6 in Weight 99 kg BP 145/86 H BP Location Left Brachial BP Position Sitting BP Cuff Size Adult Respiration 18 Pulse 80 Pulse Oximetry (%) 96 Oxygen Delivery Method Room Air Comment The patient's blood pressure is elevated. 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 ?I83.813 - Varicose veins of bilateral lower extremities with pain (ICD-10) Hypertension ?I10 - Essential (primary) hypertension (ICD-10) Surgical History (Updated 11/28/23 @ 15:11 by Bernarda Estes, JEFFERY) H/O: hysterectomy ?Z90.710 - Acquired absence of both cervix and uterus (ICD-10) History of tonsillectomy ?Z90.89 - Acquired absence of other organs (ICD-10) History of bladder suspension procedure ?Z98.890 - Other specified postprocedural states (ICD-10) ?Z87.448 - Personal history of other diseases of urinary system (ICD-10) History of left hip replacement ?Z96.642 - Presence of left artificial hip joint (ICD-10) History of knee replacement procedure of right knee ?Z96.651 - Presence of right artificial knee joint (ICD-10) History of angioplasty of peripheral vessel ?Z98.62 - Peripheral vascular angioplasty status (ICD-10) Family History (Updated 11/28/23 @ 15:12 by Bernarda Estes, JEFFERY) Mother Family history of CHF (congestive heart failure) Family history of hypertension Family history of myocardial infarction 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 Brother Family history of CHF (congestive heart failure) Family history of cancer Family history of myocardial infarction Sister Family history of stroke Social History (Updated 11/28/23 @ 15:11 by Bernarda Estes, RN) Within the past year, how often did you have a drink containing alcohol: never Score interpretation: A score less than 3 is consistent with normal alcohol consumption. Smoking status: Never smoker Non-prescribed substance use: denies use Meds Home Medications and Allergies Home Medications ?Medication ?Instructions ?Recorded ?Confirmed ?Type apixaban 5 mg tablet (Eliquis) 5 mg PO BID 09/23/23 11/28/23 History atenolol 25 mg tablet 25 mg PO DAILY 09/23/23 11/28/23 History carvedilol 12.5 mg tablet 12.5 mg PO DAILY 09/23/23 11/28/23 History meloxicam 15 mg tablet 15 mg PO DAILY 09/23/23 11/28/23 History furosemide 20 mg tablet 20 mg PO Q12H 11/28/23 11/28/23 History Allergies Allergy/AdvReac Type Severity Reaction Status Date / Time acetaminophen [From Tylenol] Allergy Mild Hives Verified 09/23/23 17:21 ibuprofen [From Motrin] Allergy Mild Hives Verified 09/23/23 17:21 metoprolol Allergy Mild Hives Verified 09/23/23 17:21 Coban AdvReac Mild Rash Uncoded 11/28/23 15:09 Exam Constitutional Vital Signs, click to edit/add: Last Vital Signs Pulse 80 12/12/23 12:45 Resp 18 12/12/23 12:45 BP 145/86 H 12/12/23 12:45 Pulse Ox 96 12/12/23 12:45 Assessment and Plan Assessment and Plan (1) 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: Plan Plan of care: Risks and benefits of the procedure were discussed at length and informed written consent was obtained.? Time-out completed for verification of correct patient, procedure and site.? Staff present during time-out: Bernarda Estes RN,? Celestine Muhammad MD, Eden Davidson RDMS,RVT. Time Out Time___1058____ Patient prepped and procedure performed in usual sterile fashion. Risk of injury related to use of Diode laser and/or laser devices? __AG___ ? Serial number of laser used :? [id number] Control panel self test performed, electrical cords in good condition, floor is dry, basin of water available, fire extinguisher in close proximity_AG__ Polycarbonate goggles available and Laser warning signs outside of doors___AG___ Eye protection provided to patient and staff in room_AG___ Use of laser retardant drapes and dull blackened instruments as directed__AG___ Use of nonflammable prep solutions and use of saline soaked sponges to protect tissues as indicated _AG___ Length ____42____ cm Laser operated by ____ [facility] verbal confirmation laser locked in place__AG__ Laser start time (date and time) ____12/12/23@1111 Laser stop time(date and time) ___12/12/23@1117 [place] _8.0___ Average laser use ____2705___Joules Average laser use____338____seconds Pulse continuous ___AG_? Pulse intermittent ___ Amount of Tumescent used __250____ Evaluated patient for signs and symptoms of electrical injury __AG___ ? Skin clear at insertion site __AG___ Patient tolerated procedure well.? Left leg Coban dressing applied to access site.? Applied Left thigh high leg compression stocking. Will return on 12/20/23 for Left leg limited venous ultrasound and exam.
--- NOTE | 2023-12-12 12:53 | W.VEIN ---
Discharge Plan Discharge Disposition: Home, Self-Care Outpatient Diagnostics: [facility] Facility EST LMTD (Routine) Timeframe: 2 Weeks Facility: [facility] - Location: [facility] Center Ordered By: Celestine Muhammad VC EXT Venous LT Limited (Routine) Timeframe: 2 Weeks Facility: [facility] - Location: Vein Center Ordered By: Celestine Muhammad Follow Up Appointments: 12/20/23 Patient Instructions: Endovenous Ablation (DC) Print Language: Azerbaijani Discharge Date/Time: 12/12/23 11:30
== END 2023-12-12 11:30 | disposition home or self-care (01) ==
LOC: VC 10:15
PROVIDERS: PCP Radiology Diagnostic Radiology; Visit Provider Radiology Diagnostic Radiology
DX: I83.813 Varicose veins of bilateral lower extremities with pain (principal)
CPT/HCPCS: 36478

== ENCOUNTER 2023-12-20 09:46 | Outpatient (OUT) | payer MEDICARE, SELFPAY ==
[2023-12-20 09:44] VITALS: BMI 35.2
--- NOTE | 2023-12-20 09:44 | VEINCLINIC_ITS ---
Vital Signs 12/20/23 09:44 Height 5 ft 6 in Weight 99 kg BMI 35.2 Varicose Veins Patient in this day for follow up ultrasound post EVLT of left GSV. Joao Carter MD personally performed the services described in this documentation, as scribed by Eden Davidson RVT, RDMS in my presence and it is both accurate and complete. Eden Carter RVT, RDMS, am scribing for, and in the presence of, Dr. Joao Florez and in the presence of the patient. thigh: bilateral, knee: bilateral, calf: bilateral, ankle: bilateral and rouse: bilateral aching, cramping and tender 6 6 months Worsened in recent months: Yes standing and walking bed rest Reports muscle spasms of leg, erythema, fatigue, heaviness, limb pain, edema and leg edema History of lower extremity trauma: Yes Superficial thrombophlebitis: No Family history of varicose veins: yes Has patient had previous lower extremity venous surgery: No Patient has previously received the following treatment(s) for lower extremity varicose veins: Reports none Does patient have a history of : yes Does patient intend to have future pregnancies: no Has patient had lower extremity venous scan with relux testing: Yes Support hose used: Yes Problems walking or doing physical activity: Yes How does it affect you: unable to walk long distances, stand for long periods of time Do you walk much: No Do you stand much: Yes Medication compliance: good Review of Systems ROS Narrative Joao Carter MD personally performed the services described in this documentation, as scribed by Eden Davidson RVT, RDMS in my presence and it is both accurate and complete. Eden Carter RVT, RDMS, am scribing for, and in the presence of, Dr. Joao Florez and in the presence of the patient. Status of ROS 10 or more systems reviewed and unremark able except as noted in history and below Cardiovascular Reports: edema and swelling of feet/ankles Musculoskeletal Reports: extremity pain, extremity swelling, joint pain, joint swelling, muscle cramps and muscle weakness Integumentary/Breast Reports: rash and redness [facility] History (Updated 12/12/23 @ 08:58 by Benji Wagoner) Phlebitis of superficial vein of left lower extremity ?I80.02 - Phlebitis and thrombophlebitis of superficial vessels of left lower extremity (ICD-10) Atrial fibrillation ?I48.91 - Unspecified atrial fibrillation (ICD-10) 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 ?I83.813 - Varicose veins of bilateral lower extremities with pain (ICD-10) Hypertension ?I10 - Essential (primary) hypertension (ICD-10) Surgical History (Updated 11/28/23 @ 15:11 by Bernarda Estes RN) H/O: hysterectomy ?Z90.710 - Acquired absence of both cervix and uterus (ICD-10) History of tonsillectomy ?Z90.89 - Acquired absence of other organs (ICD-10) History of bladder suspension procedure ?Z98.890 - Other specified postprocedural states (ICD-10) ?Z87.448 - Personal history of other diseases of urinary system (ICD-10) History of left hip replacement ?Z96.642 - Presence of left artificial hip joint (ICD-10) History of knee replacement procedure of right knee ?Z96.651 - Presence of right artificial knee joint (ICD-10) History of angioplasty of peripheral vessel ?Z98.62 - Peripheral vascular angioplasty status (ICD-10) Family History (Updated 11/28/23 @ 15:12 by Bernarda Estes, JEFFERY) Mother Family history of CHF (congestive heart failure) Family history of hypertension Family history of myocardial infarction 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 Smoking status: Never smoker Non-prescribed substance use: denies use Meds Home Medications and Allergies Home Medications ?Medication ?Instructions ?Recorded ?Confirmed ?Type apixaban 5 mg tablet (Eliquis) 5 mg PO BID 09/23/23 11/28/23 History atenolol 25 mg tablet 25 mg PO DAILY 09/23/23 11/28/23 History carvedilol 12.5 mg tablet 12.5 mg PO DAILY 09/23/23 11/28/23 History meloxicam 15 mg tablet 15 mg PO DAILY 09/23/23 11/28/23 History furosemide 20 mg tablet 20 mg PO Q12H 11/28/23 11/28/23 History doxycycline monohydrate 100 mg 100 mg PO BID 12/20/23 12/20/23 History capsule Allergies Allergy/AdvReac Type Severity Reaction Status Date / Time acetaminophen [From Tylenol] Allergy Mild Hives Verified 09/23/23 17:21 ibuprofen [From Motrin] Allergy Mild Hives Verified 09/23/23 17:21 metoprolol Allergy Mild Hives Verified 09/23/23 17:21 cephalexin [From Keflex] Allergy Hives Verified 12/20/23 11:32 Coban AdvReac Mild Rash Uncoded 11/28/23 15:09 Exam Narrative Exam Narrative: The patient has noticed an increase in redness and seeping to her left lower leg. Joao Carter MD personally performed the services described in this documentation, as scribed by Eden Davidson RVT, RDMS in my presence and it is both accurate and complete. Eden Carter RVT, RDMS, am scribing for, and in the presence of, Dr. Joao Florez and in the presence of the patient. 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 The heat induced thrombus extends from groin to proximal calf. 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 The plan is for the patient to return for EVLT of right leg GSV. The patient was prescribed an antibiotic d/t to an increase in redness. The patient is returning saturday, one week from today, for her next treatment and her left leg will be reevaluated. If the leg worsens over the weekend while taking the antibiotic, the patient is to call friday 12/22.
--- NOTE | 2023-12-20 09:47 | P.DS_ITS ---
Discharge Plan Discharge Disposition: Home, Self-Care Outpatient Diagnostics: VC Endovenous Ablation 1VeinRT (Routine) Timeframe: 2 Weeks Facility: [facility] - Location: Vein Center Ordered By: Celestine Muhammad Follow Up Appointments: 12/27/23 Plan of Treatment: EVLT of right leg GSV. Print Language: Swedish Discharge Date/Time: 12/20/23 11:28
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
--- NOTE | 2023-12-20 09:50 | VEIN_ITS ---
Patient Name: ADELINA DUKE MR#: [id number] : 1935 Exam Date: 12/20/2023 Ordering Doctor: DR ANTONY TATUM M.D. RADIOLOGY REPORT PROCEDURE: FACILITY EST [facility] - OFFICE VISIT FOLLOW UP COMPARISON: None. PROGRESS NOTES: The patient reports improvement in leg symptoms. There has been interval reduction in varicosities. The patient has followed our recommendations to walk 20-30 minutes once or twice per day since the procedure. Physical exam demonstrates decrease in varicosities of the leg. Persistent varicose veins are identified along the legs bilaterally. Irregular erythema and small areas of seeping fluid within lower left leg. Review of the ultrasound performed the same day demonstrates occlusive thrombus extending throughout the treated vein(s), see separate report, consistent with a successful ablation. No thrombus extending into or beyond the saphenofemoral junction. The patient expressed a desire to proceed with treatment of remaining incompetent varicosities. The patient was informed that treatment was a process and would require several procedures/sessions. [facility] 1. Successful ablation of the left great saphenous vein(s). 2. Persistent varicose veins and lower extremity symptoms. PLAN: 1. Endovenous laser ablation of right great saphenous vein. 2. Erythema and mild seeping from lower left leg. Patient has missed taking her Lasix for several days with symptoms developing. Patient plans to resume her Lasix. While this is felt to less likely be cellulitis the patient was provided with a prescription for doxycycline 100 mg 2 times per day for 10 days, to be started if symptoms do not improve with Lasix. Patient will follow-up with us next week for evaluation. Nurse notes, history and physical were reviewed and confirmed, see attached forms. The nurse was present throughout the physical exam and consultation Dictated by: Joao Florez M.D. on 12/20/2023 at 13:31 Approved by: Joao Florez M.D. on 12/20/2023 at 13:34
--- NOTE | 2023-12-20 09:50 | VEIN_ITS ---
Patient Name: ADELINA DUKE MR#: [id number] : 1935 Exam Date: 12/20/2023 Ordering Doctor: DR ANTONY TATUM M.D. RADIOLOGY REPORT PROCEDURE: VC EXT VENOUS LT LIMITED COMPARISON: None. INDICATIONS: I80.02 - Phlebitis and thrombophlebitis of superficial ve... TECHNIQUE: Lower extremity thomas scale and Duplex Doppler evaluation of the deep venous system from the inguinal ligament through the calf veins. FINDINGS: REGION: Left lower extremity. THROMBI: Negative for DVT. Heat induced thrombus visualized 2.6cm from the SFJ. The heat induced thrombus extends from groin to proximal calf. COMPRESSIBILITY: Non-compressible segments corresponding to thrombus FLOW: Areas of no flow corresponding to thrombus OTHER: CONCLUSION: 1. Successful post ablation occlusion of left great saphenous vein. Dictated by: Joao Florez M.D. on 12/20/2023 at 13:31 Approved by: Joao Florez M.D. on 12/20/2023 at 13:31
== END 2023-12-20 11:28 | disposition home or self-care (01) ==
PROVIDERS: PCP Radiology Diagnostic Radiology; Visit Provider Radiology Diagnostic Radiology
DX: I80.02 Phlebitis and thrombophlebitis of superficial vessels of left lower extremity (principal)
CPT/HCPCS: 93971; G0463

== ENCOUNTER 2023-12-27 10:46 | Outpatient (OUT) | payer MEDICARE, SELFPAY ==
--- NOTE | 2023-12-27 09:18 | V.VEINS.HP ---
Vital Signs 12/27/23 09:25 12/27/23 11:01 Height 5 ft 5 in Weight 99 kg BP 134/82 BP Location Left Brachial BP Position Sitting BP Cuff Size Adult BP Source Manual Cuff Respiration 20 Pulse 84 Pulse Source Monitor Pulse Oximetry (%) 95 Oxygen Delivery Method Room Air Comment The patient's blood pressure is elevated. Varicose Veins Patient in this day for EVLT of left SSV Joao Carter MD personally performed the services described in this documentation, as scribed by Benji Wagoner RN in my presence and it is both accurate and complete. Benji Carter RN, am scribing for, and in the presence of, Dr. Joao Florez and in the presence of the patient. thigh: bilateral, knee: bilateral, calf: bilateral, ankle: bilateral and rouse: bilateral aching, cramping and tender 6 6 months Worsened in recent months: Yes standing and walking bed rest Reports muscle spasms of leg, erythema, fatigue, heaviness, limb pain, edema and leg edema History of lower extremity trauma: Yes Superficial thrombophlebitis: No Family history of varicose veins: yes Has patient had previous lower extremity venous surgery: No Patient has previously received the following treatment(s) for lower extremity varicose veins: Reports none Does patient have a history of : yes Does patient intend to have future pregnancies: no Has patient had lower extremity venous scan with relux testing: Yes Support hose used: Yes Problems walking or doing physical activity: Yes How does it affect you: unable to walk long distances, stand for long periods of time Do you walk much: No Do you stand much: Yes Medication compliance: good Review of Systems ROS Narrative Joao Carter MD personally performed the services described in this documentation, as scribed by Benji Wagoner RN in my presence and it is both accurate and complete. Benji Carter RN, am scribing for, and in the presence of, Dr. Joao Florez and in the presence of the patient. Status of ROS 10 or more systems reviewed and unremarkable except as noted in history and below Cardiovascular Reports: edema and swelling of feet/ankles Musculoskeletal Reports: extremity pain, extremity swelling, joint pain, joint swelling, muscle cramps and muscle weakness Integumentary/Breast Reports: rash and redness [facility] Medical History (Updated 12/27/23 @ 09:26 by Benji Wagoner) Phlebitis and thrombophlebitis of superficial vessels of right lower extremity ?I80.01 - Phlebitis and thrombophlebitis of superficial vessels of right lower extremity (ICD-10) Phlebitis of superficial vein of left lower extremity ?I80.02 - Phlebitis and thrombophlebitis of superficial vessels of left lower extremity (ICD-10) Atrial fibrillation ?I48.91 - Unspecified atrial fibrillation (ICD-10) 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 ?I83.813 - Varicose veins of bilateral lower extremities with pain (ICD-10) Hypertension ?I10 - Essential (primary) hypertension (ICD-10) Surgical History (Updated 11/28/23 @ 15:11 by Bernarda Estes RN) H/O: hysterectomy ?Z90.710 - Acquired absence of both cervix and uterus (ICD-10) History of tonsillectomy ?Z90.89 - Acquired absence of other organs (ICD-10) History of bladder suspension procedure ?Z98.890 - Other specified postprocedural states (ICD-10) ?Z87.448 - Personal history of other diseases of urinary system (ICD-10) History of left hip replacement ?Z96.642 - Presence of left artificial hip joint (ICD-10) History of knee replacement procedure of right knee ?Z96.651 - Presence of right artificial knee joint (ICD-10) History of angioplasty of peripheral vessel ?Z98.62 - Peripheral vascular angioplasty status (ICD-10) Family History (Updated 11/28/23 @ 15:12 by Bernarda Estes RN) Mother Family history of CHF (congestive heart failure) Family history of hypertension Family history of myocardial infarction 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 Brother Family history of CHF (congestive heart failure) Family history of cancer Family history of myocardial infarction Sister Family history of stroke Social History (Updated 11/28/23 @ 15:11 by Bernarda Estes, JEFFERY) Within the past year, how often did you have a drink containing alcohol: never Score interpretation: A score less than 3 is consistent with normal alcohol consumption. Smoking status: Never smoker Non-prescribed substance use: denies use Meds Home Medications and Allergies Home Medications ?Medication ?Instructions ?Recorded ?Confirmed ?Type apixaban 5 mg tablet (Eliquis) 5 mg PO BID 09/23/23 11/28/23 History atenolol 25 mg tablet 25 mg PO DAILY 09/23/23 11/28/23 History carvedilol 12.5 mg tablet 12.5 mg PO DAILY 09/23/23 11/28/23 History meloxicam 15 mg tablet 15 mg PO DAILY 09/23/23 11/28/23 History furosemide 20 mg tablet 20 mg PO Q12H 11/28/23 11/28/23 History doxycycline monohydrate 100 mg 100 mg PO BID 12/20/23 12/20/23 History capsule Allergies Allergy/AdvReac Type Severity Reaction Status Date / Time acetaminophen [From Tylenol] Allergy Mild Hives Verified 09/23/23 17:21 ibuprofen [From Motrin] Allergy Mild Hives Verified 09/23/23 17:21 metoprolol Allergy Mild Hives Verified 09/23/23 17:21 cephalexin [From Keflex] Allergy Hives Verified 12/20/23 11:32 Coban AdvReac Mild Rash Uncoded 11/28/23 15:09 Exam Narrative Exam Narrative: Left leg ulcers notably improved, also noted is much improvement in edema. Joao Carter MD personally performed the services described in this documentation, as scribed by Benji Wagoner RN in my presence and it is both accurate and complete. Benji Carter RN, am scribing for, and in the presence of, Dr. Joao Florez and in the presence of the patient. Constitutional Documenting provider has reviewed patient's vital signs: yes Common normals: oriented x3 Nutritional appearance: overweight Lymph Lymphatic: no lymphedema noted Cardio Peripheral pulses: posterior tibial pulses present and dorsalis pedis pulses present Extremity General: calf tenderness, edema and other findings Right lower extremity: lower leg Right lower leg: inspection and palpation Left lower extremity: lower leg Left lower leg: inspection and palpation Neuro Common normals: oriented x3 Assessment and Plan Assessment and Plan (1) 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: Plan f/u evaluation with physician along with right leg limited u/s Joao Carter MD personally performed the services described in this documentation, as scribed by Benji Wagoner RN in my presence and it is both accurate and complete. Benji Carter RN, am scribing for, and in the presence of, Dr. Joao Florez and in the presence of the patient. Procedures Procedure Instructions Procedures Plan of care: Risks and benefits of the procedure were discussed at length and informed written consent was obtained.? Time-out completed for verification of correct patient, procedure and site.? Staff present during time-out: Benji Wagoner RN,? Joao Florez MD, Mari Seals RDMS, Time Out Time_1118 Patient prepped and procedure performed in usual sterile fashion. Risk of injury related to use of Diode laser and/or laser devices__CR___ ? Serial number of laser used :? [id number] Control panel self test performed, electrical cords in good condition, floor is dry, basin of water available, fire extinguisher in close proximity_CR__ Polycarbonate goggles available and Laser warning signs outside of doors___CR__ Eye protection provided to patient and staff in room_CR___ Use of laser retardant drapes and dull blackened instruments as directed__CR___ Use of nonflammable prep solutions and use of saline soaked sponges to protect tissues as indicated _CR___ Length __23 cm Laser operated by _Dr. Florez Physician verbal confirmation laser locked in place__CR__ Laser start time (date and time) _12/27/2023@1127 Laser stop time(date and time) _12/27/2023@_1131 [place] _8.0___ Average laser use __1292 Joules Average laser use__161 seconds Pulse continuous ___CR_? Pulse intermittent ___ Amount of Tumescent used __125cc____ Evaluated patient for signs and symptoms of electrical injury __CR___ ? Skin clear at insertion site __CR___ Patient tolerated procedure well.? Left leg Coban dressing applied to access site.? Applied Left thigh high leg compression stocking. Will return on 01/06/2024 for Left leg limited venous ultrasound and exam. IJoao MD personally performed the services described in this documentation, as scribed by Benji Wagoner RN in my presence and it is both accurate and complete. I, Benji Wagoner RN, am scribing for, and in the presence of, Dr. Joao Florez and in the presence of the patient.
--- NOTE | 2023-12-27 09:23 | W.VEIN ---
Discharge Plan Discharge Disposition: Home, Self-Care Outpatient Diagnostics: VC Facility EST LMTD (Routine) Timeframe: 2 Weeks Facility: [facility] - Location: [facility] Ordered By: Joao Florez VC EXT Venous RT LMTD (Routine) Timeframe: 2 Weeks Facility: [facility] - Location: Vein Center Ordered By: Joao Florez Plan of Treatment: f/u evaluation with physician along with right leg limited u/s following EVLT of right GSV 12/27/2023 Patient Instructions: Endovenous Ablation (DC) Print Language: Icelandic
[2023-12-27] MEDS: LIDOCAINE HCL 1% 100 MG/10 ML MDV INJ (10:46)
[2023-12-27] MEDS: 0.9 % SODIUM CHLORIDE 500 ML, LIDOCAINE HCL 20 ML, SODIUM BICARBONATE 10 MEQ INJ (10:46)
--- NOTE | 2023-12-27 10:47 | VEIN_ITS ---
[address] [address] Patient Name: ADELINA DUKE MRN: [id number] date: 1935 Sex: F Assigned Patient Location: Current Patient Location: Accession/Order Number: [id number] Exam Date: 12/27/2023 10:50 Report Date: 12/27/2023 12:50 At the request of: ANTONY TATUM Procedure: VC Endovenous Ablation 1VeinLT EXAMINATION: VC Endovenous Ablation 1VeinLT HISTORY: I83.813 - Varicose veins of bilateral lower extremities w... The risks and benefits of the procedure had been previously discussed, and were rediscussed at length. Informed written consent was obtained. Benji Wagoner RN and Mari Guillen RDMS assisted. Time out procedure was performed. The left lower extremity was prepared and draped in the usual sterile fashion to allow knee flexion in the sterile field. Duplex ultrasound probe was draped in a sterile cover, sterile transmission gel was used. Venous mapping was performed with the areas of dilation and large tributaries marked. The total length was 23 cm from the entry 4 cm above the ankle to 3 cm below insertion into the deep musculature (thigh extension). The diameter of the left small saphenous vein ranged from 6.2 mm. A 30 gauge needle and 1% buffered lidocaine was used to anesthetize the entry site. A 4 mm incision was made with a scalpel and the saphenous vein was entered percutaneously under direct ultrasound guidance with a micropuncture set, a single stick was successful in gaining access. A micro-guide wire was inserted and the needle removed. A micro-set including a dilator was inserted over the microwire and the needle and dilator were removed. A guide wire was inserted through the micro-set and guided through the saphenous vein to the saphenofemoral junction. The dilator was removed and an introducer sheath was inserted over the wire until the end of the sheath entered the saphenofemoral junction. The dilator and wire were removed and the 600 micron fiber was introduced and placed and positioned so that it extended beyond the sheath and was 3 cm distal to the saphenofemoral or saphenopopliteal junction. Final position of the fiber was determined by ultrasound guidance and duplex imaging. Tumescent anesthetic was delivered by ultrasound guidance. 125 cc of fluid was delivered along the entire course of the saphenous vein. The solution consisted of 1000 cc of normal saline with 40 mL of 1% lidocaine and 20 mL of sodium bicarbonate. A final positioning check was made. The energy source was turned on by means of the foot pedal and the fiber and sheath were withdrawn. The total number of Joules delivered was 1292. The laser was active for 161 seconds under continuous pulse, average laser use of 8 J. Laser start time: 11:27 AM Laser stop time: 11:31 AM Date: 12/27/2023. A duplex ultrasound revealed compressibility and flow at the saphenofemoral junction immediately after the procedure. Hemostasis at the access site was achieved. The skin incision of the saphenous vein was closed with a 4 x 4. A compression stocking was applied. Postop instructions were given. A follow up appointment was recommended and scheduled. The patient tolerated the procedure well. Electronically authenticated by: LAWRENCE JEONG Date: 12/27/2023 12:50
[2023-12-27 11:01] VITALS: BP 134/82; PULSE 84; O2SAT 95
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
--- NOTE | 2023-12-27 11:26 | W.VEIN ---
Discharge Plan Discharge Disposition: Home, Self-Care Outpatient Diagnostics: VC Facility EST LMTD (Routine) Timeframe: 2 Weeks Facility: [facility] - Location: [facility] Ordered By: Joao Florez VC EXT Venous LT Limited (Routine) Timeframe: 2 Weeks Facility: [facility] - Location: Vein Center Ordered By: Celestine Muhammad VC EXT Venous RT LMTD (Routine) Timeframe: 2 Weeks Facility: [facility] - Location: Vein Center Ordered By: Joao Florez Follow Up Appointments: 01/06/2024 Plan of Treatment: f/u evaluation with physician along with right leg limited u/s following EVLT of right GSV 12/27/2023 Patient Instructions: Endovenous Ablation (DC) Print Language: Azerbaijani
== END 2023-12-27 10:47 | disposition home or self-care (01) ==
LOC: VC 10:46
PROVIDERS: PCP Radiology Diagnostic Radiology; Visit Provider Radiology Diagnostic Radiology
DX: I83.813 Varicose veins of bilateral lower extremities with pain (principal)
CPT/HCPCS: 36478

== ENCOUNTER 2023-12-31 13:09 | Outpatient (OUT) | payer MEDICARE, SELFPAY ==
[2023-12-31 14:58] LABS: Anion Gap 11.3; BUN Creatinine Ratio 31.1; Calcium 9.1 mg/dL (8.5-10.1); Carbon Dioxide 29.7 mmol/L (21.0-32.0); Chloride 105 mmol/L (98-107); Estimated GFR (African America 60 (>=60); Estimated GFR (Non-African Ame 49 (>=60); Glucose 126 mg/dL (74-106); Sodium 142 mmol/L (136-145)
== END 2023-12-31 13:10 | disposition home or self-care (01) ==
LOC: LAB 13:12
PROVIDERS: Visit Provider Internal Medicine Cardiovascular Disease
DX: I11.0 Hypertensive heart disease with heart failure (principal); I50.33 Acute on chronic diastolic (congestive) heart failure
CPT/HCPCS: 36415; 80048

== ENCOUNTER 2024-01-06 12:52 | Outpatient (OUT) | payer MEDICARE, SELFPAY ==
[2024-01-06 09:26] VITALS: BMI 35.2
--- NOTE | 2024-01-06 09:26 | V.VEINS.HP ---
Vital Signs 01/06/24 09:26 Height 5 ft 6 in Weight 99 kg BMI 35.2 Varicose Veins Patient in today for follow up ultrasound of left lower extremity following EVLT of left SSV completed on 12/27/23. Celestine Carter MD personally performed the services described in this documentation, as scribed by Mari Seals RDMS in my presence and it is both accurate and complete. Mari Carter RDMS, am scribing for, and in the presence of, Dr. Celestine Muhammad and in the presence of the patient. thigh: bilateral, knee: bilateral, calf: bilateral, ankle: bilateral and rouse: bilateral aching, cramping and tender 6 6 months Worsened in recent months: Yes standing and walking bed rest Reports muscle spasms of leg, erythema, fatigue, heaviness, limb pain, edema and leg edema History of lower extremity trauma: Yes Superficial thrombophlebitis: No Family history of varicose veins: yes Has patient had previous lower extremity venous surgery: No Patient has previously received the following treatment(s) for lower extremity varicose veins: Reports none Does patient have a history of : yes Does patient intend to have future pregnancies: no Has patient had lower extremity venous scan with relux testing: Yes Support hose used: Yes Problems walking or doing physical activity: Yes How does it affect you: unable to walk long distances, stand for long periods of time Do you walk much: No Do you stand much: Yes Medication compliance: good Review of Systems ROS Narrative Celestine Carter MD personally performed the services described in this documentation, as scribed by Mari Seals RDMS in my presence and it is both accurate and complete. Mari Carter RDMS, am scribing for, and in the presence of, Dr. Celestine Muhammad and in the presence of the patient. Status of ROS 10 or more systems reviewed and unremarkable except as noted in history and below Cardiovascular Reports: edema and swelling of feet/ankles Musculoskeletal Reports: extremity pain, extremity swelling, joint pain, joint swelling, muscle cramps and muscle weakness Integumentary/Breast Reports: rash and redness [facility] History (Updated 12/27/23 @ 09:26 by Benji Wagoner) Phlebitis and thrombophlebitis of superficial vessels of right lower extremity ?I80.01 - Phlebitis and thrombophlebitis of superficial vessels of right lower extremity (ICD-10) Phlebitis of superficial vein of left lower extremity ?I80.02 - Phlebitis and thrombophlebitis of superficial vessels of left lower extremity (ICD-10) Atrial fibrillation ?I48.91 - Unspecified atrial fibrillation (ICD-10) 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 ?I83.813 - Varicose veins of bilateral lower extremities with pain (ICD-10) Hypertension ?I10 - Essential (primary) hypertension (ICD-10) Surgical History (Updated 11/28/23 @ 15:11 by Bernarda Estes RN) H/O: hysterectomy ?Z90.710 - Acquired absence of both cervix and uterus (ICD-10) History of tonsillectomy ?Z90.89 - Acquired absence of other organs (ICD-10) History of bladder suspension procedure ?Z98.890 - Other specified postprocedural states (ICD-10) ?Z87.448 - Personal history of other diseases of urinary system (ICD-10) History of left hip replacement ?Z96.642 - Presence of left artificial hip joint (ICD-10) History of knee replacement procedure of right knee ?Z96.651 - Presence of right artificial knee joint (ICD-10) History of angioplasty of peripheral vessel ?Z98.62 - Peripheral vascular angioplasty status (ICD-10) Family History (Updated 11/28/23 @ 15:12 by Bernarda Estes, JEFFERY) Mother Family history of CHF (congestive heart failure) Family history of hypertension Family history of myocardial infarction 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 Brother Family history of CHF (congestive heart failure) Family history of cancer Family history of myocardial infarction Sister Family history of stroke Social History (Updated 11/28/23 @ 15:11 by Bernarda Estes, RN) Within the past year, how often did you have a drink containing alcohol: never Score interpretation: A score less than 3 is consistent with normal alcohol consumption. Smoking status: Never smoker Non-prescribed substance use: denies use Meds Home Medications and Allergies Home Medications ?Medication ?Instructions ?Recorded ?Confirmed ?Type apixaban 5 mg tablet (Eliquis) 5 mg PO BID 09/23/23 11/28/23 History atenolol 25 mg tablet 25 mg PO DAILY 09/23/23 11/28/23 History carvedilol 12.5 mg tablet 12.5 mg PO DAILY 09/23/23 11/28/23 History meloxicam 15 mg tablet 15 mg PO DAILY 09/23/23 11/28/23 History furosemide 20 mg tablet 20 mg PO Q12H 11/28/23 11/28/23 History doxycycline monohydrate 100 mg 100 mg PO BID 12/20/23 12/20/23 History capsule Allergies Allergy/AdvReac Type Severity Reaction Status Date / Time acetaminophen [From Tylenol] Allergy Mild Hives Verified 09/23/23 17:21 ibuprofen [From Motrin] Allergy Mild Hives Verified 09/23/23 17:21 metoprolol Allergy Mild Hives Verified 09/23/23 17:21 cephalexin [From Keflex] Allergy Hives Verified 12/20/23 11:32 Coban AdvReac Mild Rash Uncoded 11/28/23 15:09 Exam Narrative Exam Narrative: Patient has no complaints today. Celestine Carter MD personally performed the services described in this documentation, as scribed by Mari Seals RDMS in my presence and it is both accurate and complete. Mari Carter RDMS, am scribing for, and in the presence of, Dr. Celestine Muhammad and in the presence of the patient. Constitutional Documenting provider has reviewed patient's vital signs: yes Common normals: oriented x3 Nutritional appearance: overweight Lymph Lymphatic: no lymphedema noted Cardio Peripheral pulses: posterior tibial pulses present and dorsalis pedis pulses present Extremity General: calf tenderness, edema and other findings Right lower extremity: lower leg Right lower leg: inspection and palpation Left lower extremity: lower leg Left lower leg: inspection and palpation Neuro Common normals: oriented x3 Results Imaging Venous US: Radiologist's impression: Heat induced thrombus in left SSV 1.2 cm from SPJ and extends to distal lower leg. Celestine Carter MD personally performed the services described in this documentation, as scribed by Mari Seals RDMS in my presence and it is both accurate and complete. Mari Carter RDMS, am scribing for, and in the presence of, Dr. Celestine Muhammad and in the presence of the patient. Assessment and Plan Assessment and Plan (1) Phlebitis of superficial vein of left lower extremity: Plan Plan is for patient to return for Varithena/microfoam of left leg on 01/13/24. I, Celestine Muhammad MD personally performed the services described in this documentation, as scribed by Mari Seals RDMS in my presence and it is both accurate and complete. I, Mari Seals RDMS, am scribing for, and in the presence of, Dr. Celestine Muhammad and in the presence of the patient.
--- NOTE | 2024-01-06 12:54 | VEIN_ITS ---
Patient Name: ADELINA DUKE MR#: [id number] : 1935 Exam Date: 01/06/2024 Ordering Doctor: DR LAWRENCE JEONG M.D. RADIOLOGY REPORT PROCEDURE: [facility] - OFFICE VISIT FOLLOW UP COMPARISON: [facility], 12/20/2023. PROGRESS NOTES: The patient reports no significant problems following intravenous laser ablation of the left small saphenous vein. The patient did have some redness of her leg and was diagnosed with cellulitis by her primary care physician. The patient did finish a course of doxycycline. Physical exam demonstrates no erythema or warmth. No evidence of cellulitis or thrombophlebitis. No active ulceration. The small saphenous vein cannot be definitively palpated Review of the ultrasound performed the same day demonstrates occlusive thrombus extending throughout the treated small saphenous vein with heat induced thrombus 1.2 cm in the saphenous popliteal junction period no deep vein thrombus. The patient expressed a desire to proceed with treatment of incompetent left leg varicose veins. [facility]: 1. Successful ablation of the left small saphenous vein 2. Persistent incompetent varicose veins. PLAN: Micro foam chemical ablation left leg incompetent varicose veins Nurse notes, history and physical were reviewed and confirmed, see attached forms. The nurse was present throughout the physical exam and consultation Dictated by: Celestine Muhammad MD on 01/06/2024 at 13:47 Approved by: Celestine Muhammad MD on 01/06/2024 at 15:02
--- NOTE | 2024-01-06 12:54 | VEIN_ITS ---
Patient Name: ADELINA DUKE MR#: [id number] : 1935 Exam Date: 01/06/2024 Ordering Doctor: DR CELESTINE MUHAMMAD M.D. RADIOLOGY REPORT PROCEDURE: VC EXT VENOUS LT LIMITED COMPARISON: VC EXT VENOUS LT LIMITED, 12/20/2023. INDICATIONS: I80.02 - Phlebitis and thrombophlebitis of superficial veins left leg TECHNIQUE: Lower extremity thomas scale and Duplex Doppler evaluation of the deep venous system from the inguinal ligament through the calf veins. FINDINGS: REGION: Left lower extremity. THROMBI: Negative for DVT. Heat induced thrombus in left SSV 1.2 cm from SPJ and extends to distal lower leg. COMPRESSIBILITY: Non-compressible segments corresponding to thrombus FLOW: Areas of no flow corresponding to thrombus CONCLUSION: Post ablation occlusion of the left small saphenous vein with heat induced thrombus is 1.2 cm from the saphenopopliteal junction Dictated by: Celestine Muhammad MD on 01/06/2024 at 13:35 Approved by: Celestine Muhammad MD on 01/06/2024 at 13:40
--- NOTE | 2024-01-06 14:03 | P.DS_ITS ---
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 - Location: Vein Center Ordered By: Celestine Muhammad Follow Up Appointments: 01/13/24 Plan of Treatment: Varithena/microfoam of left leg Print Language: Hungarian Discharge Date/Time: 01/06/24 14:04
--- NOTE | 2024-01-06 14:03 | W.VEIN ---
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
== END 2024-01-06 14:04 | disposition home or self-care (01) ==
PROVIDERS: Visit Provider Radiology Diagnostic Radiology
DX: I80.02 Phlebitis and thrombophlebitis of superficial vessels of left lower extremity (principal)
CPT/HCPCS: 93971; G0463

== ENCOUNTER 2024-01-13 13:02 | Outpatient (OUT) | payer MEDICARE, SELFPAY ==
--- NOTE | 2024-01-10 08:56 | V.VEINS.HP ---
Varicose Veins Patient in today for microfoam chemical ablation left leg. Celestine Carter MD personally performed the services described in this documentation, as scribed by Benji Wagoner RN in my presence and it is both accurate and complete. Benji Carter RN, am scribing for, and in the presence of, Dr. Celestine Muhammad and in the presence of the patient. thigh: bilateral, knee: bilateral, calf: bilateral, ankle: bilateral and rouse: bilateral aching, cramping and tender 6 6 months Worsened in recent months: Yes standing and walking bed rest Reports muscle spasms of leg, erythema, fatigue, heaviness, limb pain, edema and leg edema History of lower extremity trauma: Yes Superficial thrombophlebitis: No Family history of varicose veins: yes Has patient had previous lower extremity venous surgery: No Patient has previously received the following treatment(s) for lower extremity varicose veins: Reports none Does patient have a history of : yes Does patient intend to have future pregnancies: no Has patient had lower extremity venous scan with relux testing: Yes Support hose used: Yes Problems walking or doing physical activity: Yes How does it affect you: unable to walk long distances, stand for long periods of time Do you walk much: No Do you stand much: Yes Medication compliance: good Review of Systems ROS Narrative Celestine Carter MD personally performed the services described in this documentation, as scribed by Benji Wagoner RN in my presence and it is both accurate and complete. Benji Carter RN, am scribing for, and in the presence of, Dr. Celestine Muhammad and in the presence of the patient. Status of ROS 10 or more systems reviewed and unremarkable except as noted in history and below Cardiovascular Reports: edema and swelling of feet/ankles Musculoskeletal Reports: extremity pain, extremity swelling, joint pain, joint swelling, muscle cramps and muscle weakness Integumentary/Breast Reports: rash and redness [facility] Medical History (Updated 12/27/23 @ 09:26 by Benji Wagoner) Phlebitis and thrombophlebitis of superficial vessels of right lower extremity ?I80.01 - Phlebitis and thrombophlebitis of superficial vessels of right lower extremity (ICD-10) Phlebitis of superficial vein of left lower extremity ?I80.02 - Phlebitis and thrombophlebitis of superficial vessels of left lower extremity (ICD-10) Atrial fibrillation ?I48.91 - Unspecified atrial fibrillation (ICD-10) 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 ?I83.813 - Varicose veins of bilateral lower extremities with pain (ICD-10) Hypertension ?I10 - Essential (primary) hypertension (ICD-10) Surgical History (Updated 11/28/23 @ 15:11 by Bernarda Estes RN) H/O: hysterectomy ?Z90.710 - Acquired absence of both cervix and uterus (ICD-10) History of tonsillectomy ?Z90.89 - Acquired absence of other organs (ICD-10) History of bladder suspension procedure ?Z98.890 - Other specified postprocedural states (ICD-10) ?Z87.448 - Personal history of other diseases of urinary system (ICD-10) History of left hip replacement ?Z96.642 - Presence of left artificial hip joint (ICD-10) History of knee replacement procedure of right knee ?Z96.651 - Presence of right artificial knee joint (ICD-10) History of angioplasty of peripheral vessel ?Z98.62 - Peripheral vascular angioplasty status (ICD-10) Family History (Updated 11/28/23 @ 15:12 by Bernarda Estes, RN) Mother Family history of CHF (congestive heart failure) Family history of hypertension Family history of myocardial infarction 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 Brother Family history of CHF (congestive heart failure) Family history of cancer Family history of myocardial infarction Sister Family history of stroke Social History (Updated 11/28/23 @ 15:11 by Bernarda Estes, RN) Within the past year, how often did you have a drink containing alcohol: never Score interpretation: A score less than 3 is consistent with normal alcohol consumption. Smoking status: Never smoker Non-prescribed substance use: denies use Meds Home Medications and Allergies Home Medications ?Medication ?Instructions ?Recorded ?Confirmed ?Type apixaban 5 mg tablet (Eliquis) 5 mg PO BID 09/23/23 11/28/23 History atenolol 25 mg tablet 25 mg PO DAILY 09/23/23 11/28/23 History carvedilol 12.5 mg tablet 12.5 mg PO DAILY 09/23/23 11/28/23 History meloxicam 15 mg tablet 15 mg PO DAILY 09/23/23 11/28/23 History furosemide 20 mg tablet 20 mg PO Q12H 11/28/23 11/28/23 History doxycycline monohydrate 100 mg 100 mg PO BID 12/20/23 12/20/23 History capsule Allergies Allergy/AdvReac Type Severity Reaction Status Date / Time acetaminophen [From Tylenol] Allergy Mild Hives Verified 09/23/23 17:21 ibuprofen [From Motrin] Allergy Mild Hives Verified 09/23/23 17:21 metoprolol Allergy Mild Hives Verified 09/23/23 17:21 cephalexin [From Keflex] Allergy Hives Verified 12/20/23 11:32 Coban AdvReac Mild Rash Uncoded 11/28/23 15:09 Exam Narrative Exam Narrative: Celestine Carter MD personally performed the services described in this documentation, as scribed by Benji Wagoner RN in my presence and it is both accurate and complete. Benji Carter RN, am scribing for, and in the presence of, Dr. Celestine Muhammad and in the presence of the patient. Assessment and Plan Assessment and Plan (1) 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: Plan f/u evaluation with physician along with left leg limited u/s Celestine Carter MD personally performed the services described in this documentation, as scribed by Benji Wagoner RN in my presence and it is both accurate and complete. Benji Carter RN, am scribing for, and in the presence of, Dr. Celestine Muhammad and in the presence of the patient. Procedures Procedure Instructions Procedures Left leg microfoam chemical ablation/Varithena: Risks and benefits of the procedure were discussed at length and informed written consent was obtained.? Time-out procedure was performed and the correct patient and procedure were confirmed.? Staff present during time-out: Benji Wagoner RN and Celestine Muhammad MD.? Patient prepped and procedure performed in usual sterile fashion.? Patient was placed in Trendelenburg prior to Polidocanol/Varithena injections. Sclerosing Agent:?? 8cc 1% Polidocanol/Varithena Site Injected: 5 cc injected into a 4 mm varicose vein distal anterior left lower leg 3 cc injected into a 4 mm varicose vein mid medial left lower leg Number of Injections:? 2 The patient tolerated the procedure well without complication.? Hemostasis was obtained and thigh-high compression stocking was applied with foam pads.? Instructed patient to wear stocking for at least 96 hours and sleep with it and only remove for showering.? The patient was instructed to? wear stocking for 2 weeks.? Patient verbalizes understanding and states they will comply.? Patient was given post-procedure instructions. Patient was discharged in good condition.? Scheduled to undergo limited venous ultrasound and? exam on 01/22/2024. ICelestine MD personally performed the services described in this documentation, as scribed by Benji Wagoner RN in my presence and it is both accurate and complete. IBenji RN, am scribing for, and in the presence of, Dr. Celestine Muhammad and in the presence of the patient.
--- NOTE | 2024-01-10 09:09 | P.DS_ITS ---
Discharge Plan Discharge Disposition: Home, Self-Care Outpatient Diagnostics: VC Facility EST LMTD (Routine) Timeframe: 2 Weeks Facility: [facility] - Location: Vein Center Ordered By: Celestine Muhammad VC EXT Venous LT Limited (Routine) Timeframe: 2 Weeks Facility: [facility] - Location: Vein Center Ordered By: Celestine Muhammad Follow Up Appointments: 01/22/2024 Plan of Treatment: f/u evaluation with physician along with left leg limited u/s Patient Instructions: Polidocanol (By injection) ([place]) Print Language: Turkish Discharge Date/Time: 01/13/24 15:22
--- NOTE | 2024-01-13 13:07 | VEIN_ITS ---
[address] [address] Patient Name: ADELINA DUKE MRN: [id number] date: 1935 Sex: F Assigned Patient Location: Current Patient Location: Accession/Order Number: [id number] Exam Date: 01/13/2024 13:07 Report Date: 01/13/2024 14:56 At the request of: ANTONY TATUM Procedure: VC INJ Foam Sclerosant WUS PATIENT CARE MANAGER PROCEDURE: VC INJ Foam Sclerosant WUS PATIENT CARE MANAGER COMPARISON: None. HISTORY: I83.813 - Varicose veins of bilateral lower extremities w... Pre-operative Diagnosis: CEAP class C4 venous insufficiency with pain, tenderness, edema and incompetent left saphenous and varicose vein(s), chronic venous insufficiency left leg secondary to venous incompetence Post-operative Diagnosis: CEAP class C4 venous insufficiency with pain, tenderness, edema and incompetent left saphenous and varicose vein(s), chronic venous insufficiency left leg secondary to venous incompetence Procedure Performed: 1. Ultrasound-guided microfoam chemical ablation with Varithenaregistered 2. Intraoperative ultrasound guidance Anesthesia: None Indications for Procedure: 88-year-old female who presents with a long history of lower extremity pain and swelling varicose veins with hemosiderin staining. The patient failed conservative medical therapy including medical compression stockings, exercise and analgesics. Prior procedures include endovenous laser ablation. Multiple incompetent varicosities of the left leg. Duplex scan showed reflux and enlarged diameters up to 4 mm. The patient underwent informed consent including management options where the complications of infection, bleeding, pain, and skin injury were discussed. Particular attention was spent discussing thrombus extension and deep vein thrombosis as well as the possibility of pulmonary embolus and treatment with oral or injectable blood thinners. Procedure: The patient walked to the procedure room. All applicable staff donned appropriate apparel. A procedure timeout was performed to confirm correct patient, correct extremity, correct procedure, and correct room set-up including presence of all applicable supplies, devices, and drugs. A duplex ultrasound, performed by myself confirmed the location and incompetence of branch saphenous varicosities and their course was marked on the skin together with the dilated tributaries. The extent of treatment of the vein and the associated varicosities was determined through ultrasound mapping. The skin was prepped and then punctured with a butterfly needle and advanced under ultrasound guidance. The Varithenaregistered canister was activated and the canister was primed and purged as required in the instructions for use. Varithenaregistered was drawn into a sterile syringe. The following injections were made: 5 cc injected into a 4 mm varicose vein distal anterior left lower leg 3 cc injected into a 4 mm varicose vein mid medial left lower leg Varithenaregistered was slowly administered at 0.5-1.0 cc/second with close observation by ultrasound of its course in the vessels. Total volume utilized was: 8 cc. Following administration of Varithenaregistered the leg was elevated and the patient was asked to repeatedly dorsiflex the ankle to limit flow of Varithenaregistered into perforating veins. Once appropriate spasm had been confirmed in the treated veins, the vascular catheter was removed from the leg and light pressure was applied over the puncture site for hemostasis. The common femoral and deep superficial veins were then evaluated for flow and compressibility prior to dressing placement. The lower extremity was kept elevated at 45 degrees above the horizontal and cording material was applied over the saphenous segments and tributaries to allow for eccentric compression over the target vessels including the targeted saphenous vein(s). A multilayer dressing was applied consisting of foam pads, coban and thigh-high 20-30 mm Hg compression elastic support hose were placed on the patient. The leg was lowered only after compression had been applied and the patient was immediately ambulatory. The patient ambulated 10 minutes under supervision and was without apparent concerns at time of release. Post-care instructions include advising patient to keep post-treatment bandages in place and dry for 48 hours, avoid extended periods of inactivity, avoid heavy exercise for one week, wear compression stockings on the treated leg continuously for two weeks, to walk daily for 10 minutes over the next month. The patient was instructed to take an anti-inflammatory medicine as needed and to follow up for color duplex scan of the Saphenous veins, the treated branch saphenous varicosities, the adjacent deep veins, and additional treatment within 7 days. PERSONNEL: Benji Wagoner RN Electronically authenticated by: ANTONY TATUM Date: 01/13/2024 14:56
--- OUTSIDE RECORDS SUMMARY | 2024-01-13 13:23 | XMS_ITS | CCD ---
Author Organization [facility] Inform ion Partnership [facility] Care Team Providers Care Instructional Aide Name Role Phone Radha Bruno MD Unavailable Alba Alston MD Primary Care Provider Livier AGRICULTURAL EQUIPMENT DESIGN ENGINEER, Alba Teixeira Unavailable LIVIER, ALBA Teixeira Attending Unavailab le MAIER, ALBA Teixeira Referring Unavailab le MAIER, ALBA Teixeira Attending Unavailab le MAIER, ALBA Teixeira Attending Unavailab le MAIER, ALBA Teixeira Attending Unavailab le HACKENBURG, DAGO Teixeira Attending Unavailab le MAIER, ALBA Teixeira Attending Unavailab le MAIER, ALBA Teixeira Attending Unavailab le MARU, MATTHEW Admitting Unavailable MARU, MATTHEW Attending Unavailable MARU, MATTHEW Referring Unavailable DEBI, JOVITA Attending Unavailable BARAZI, JOSE DANIEL Attending Unavailable MARU, MATTHEW Attending Unavailable XAVIER, FAWAD Attending Unavailable XAVIER, FAWAD Attending Unavailable MARU, MATTHEW Attending Unavailable MARU, MATTHEW Referring Unavailable Allergies Allergy Classification Reported Allergen(s) Allergy Type Date of Onset Reaction(s) Facility (3 sources) Acetaminophen; Translations: [ACETAMINOPHEN] Drug Allergy 02-27-2023 Unknown [facility] Work Phone: (2 sources) Amoxicillin Drug Allergy 02-27-2023 [facility] Healthcare (3 sources) celecoxib; Translations: [CELECOXIB] Drug Allergy 02-25-2019 [facility] (3 sources) Ibuprofen; Translations: [IBUPROFEN] Drug Allergy 02-25-2019 [facility] (3 sources) Metoprolol; Translations: [METOPROLOL] Drug Allergy 03-22-2021 Rash [facility] (3 sources) Nitrofurantoin; Translations: [NITROFURANTOIN] Drug Allergy 02-27-2023 Hives [facility] (3 sources) Nitrofurantoin; Translations: [NITROFURANTOIN MACROCRYSTAL] Drug Allergy 02-25-2019 Anaphylaxis [facility] (2 sources) Piroxicam Drug Allergy 02-27-2023 [facility] (2 sources) Sulfonamides (Antibiotic) Drug Allergy 02-27-2023 [facility] (1 source) Amiodarone; Translations: [AMIODARONE] Drug Allergy 10-24-2023 [facility] Repository Medications Current Medications Medication Drug Class(es) [...] Onset: 03-30-2021 03-12-2023 Chronic Unclassified (2 sources) Permanent atrial fibrillation; Translations: [Permanent atrial fibrillation] Onset: 12-31-2023 Unclassified (2 sources) Chronic atrial fibrillation, unspecified; Translations: [Chronic atrial fibrillation, unspecified] Onset: 07-15-2023 Unclassified (2 sources) Longstanding persistent atrial fibrillation; Translations: [Longstanding persistent atrial fibrillation] Onset: 08-20-2023 Varicose veins of lower extremity (2 sources) [...] not specified as traumatic] Onset: 02-27-2023 Resolved: 10-24-2023 10-24-2023 Episodic Other gastrointestinal disorders (2 sources) Diarrhea; Translations: [Diarrhea, unspecified] Onset: 02-27-2023 02-27-2023 Episodic Other nervous system disorders (2 sources) Abnormal gait; Translations: [Unspecified abnormalities of gait and mobility] Onset: 02-27-2023 02-27-2023 Episodic Urinary tract infections (2 sources) Escherichia coli urinary tract infection; Translations: [Urinary tract infection, site not specified] Onset: 03-05-2021 03-12-2023 Episodic Results Test Name Value Interpretation Reference Range Facility 01-07-2024 36 Regarding vein clini c office note and venous reflux study: MD Felicity Ferrara MA There is evidence of venous insufficiency. It appears that the patient was seen by the vein clinic already it was recommended to undergo venous ablation with compression stockings. Advise to follow-up with the instructions [facility] Office Visiton 12-31-2023 Follow-up visit [id number] Radha Madrid 1935 F Date Provider Department Center 12/31/2023 MATTHEW MISHAR MARCK Vizcaino Family History Problem Relation Age of Onset Stroke Mother Stroke Father Stroke Sister Heart attack Brother Cancer Brother Family Status - Relation Status Age at Mother Father Sister Brother Level of Service:29560 SC OFFICE/OUTPATIENT ESTABLISHED LOW MDM 20 MIN [facility] Office Visiton 11-22-2023 Follow-up visit [id number] Radha Madrid 1935 F Date Provider Department Center 11/22/2023 FAWAD DEVLIN Family History Problem Relation Age of Onset Stroke Mother Stroke Father Stroke Sister Heart attack Brother Cancer Brother Family Status - Relation Status Age at Mother Father Sister Brother Level of Service:88593 SC OFFICE/OUTPATIENT ESTABLISHED MOD MDM 30 MIN [facility] 10-30-2023 36 Spoke with patient a nd she states she's taking atenolol 25mg daily and NOT taking Cardizem. [facility] 10-24-2023 36 Patient called me th is morning and she does have a bottle of atenolol 25mg tablets at home. She said the date on the bottle is August [address] Osman's name is on it. The RX went to [facility]. There's no documentation that I could find in Dr. Osman's note about starting her on atenolol. For some reason I'm unable to see it sent into her pharmacy in [place] also. I will be investigating this further to see why we aren't able to see when this was faxed into [facility]. Thanks. [facility] Telephoneon 10-24-2023 Telephone [id number] Radha Madrid 1935 F Date Provider Department Center 10/24/2023 Kimi8-FELICITY BRASHER Family History Problem Relation Age of Onset Stroke Mother Stroke Father Stroke Sister Heart attack Brother Cancer Brother Family Status - Relation Status Age at Mother Father Sister Brother [facility] 29on 10-23-2023 29 Addended by: FAWAD PARK on: 10/24/2023 05:20 PM Modules accepted: Orders [facility] Office Visiton 10-23-2023 Follow-up visit [id number] Radha Madrid 1935 F Date Provider Department Center 10/23/2023 [id number] PARK Family History Problem Relation Age of Onset Stroke Mother Stroke Father Stroke Sister Heart attack Brother Cancer Brother Family Status - Relation Status Age at Mother Father Sister Brother Level of Service:49622 SC OFFICE/OUTPATIENT ESTABLISHED MOD MDM 30 MIN [facility] 37on 10-18-2023 37 Take lasix 20 mg [...] taller/more pillows than normal or in recliner. [facility] Office Visiton 10-18-2023 Follow-up visit [id number] Radha Madrid nn 1935 F Date Provider Department Center 10/18/2023 Herman-JOVITA CARRERA MARCK D[employer] Charis Family History Problem Relation Age of Onset Stroke Mother Stroke Father Stroke Sister Heart attack Brother Cancer Brother Family Status - Relation Status Age at Mother Father Sister Brother Level of Service:02143 SC OFFICE/OUTPATIENT ESTABLISHED MOD MDM 30 MIN [facility] 36on 10-04-2023 36 Mehnaz called from e laborer/grade check and states that this patients heart rate [...] at that time. Patient has been informed [facility] Documentationon 10-04-2023 Documentation [id number] Radha Madrid nn 1935 Date Provider Department Center 10/04/2023 CATARINO QUICK [facility] [place] [facility] Family History Problem Relation Age of Onset Stroke Mother Stroke Father Stroke Sister Heart attack Brother Cancer Brother Family Status - Relation Status Age at Mother Father Sister Brother [facility] HPon 10-02-2023 [facility] Electrophysiology Consult Note Reason for visit: afib [...] on file Intimate Partner Violence: Unknown (07/11/2023) [place] Safety [place] Fear of Current or [...] safe in rela (more content not included)... Normal [facility] NURSNOTEon 10-02-2023 NURSNOTE During call back fro vivek Arce. Pt was told to stop here BB due to bradycaria, She was concerned because she held her BB et B/P jumped into 150 systolic . So she took her BB et her B/P went down to 116 systolic. Back End Web Developer educated pt her HR being in the 30s when in SR. Reducated her to stop the BB et notified Dr. Osman of the situation thru Mary DAWKINS. Dr. Osman to contact pt. [facility] NURSNOTE RN educated pt on d/ c instructions. RN encouraged pt to voice any questions or concerns. Pt verbalizes no questions or concerns at this time. Pt was wheeled off of unit with all of belongings. [facility] Orders Onlyon 10-02-2023 Orders Only [id number] Radha Madrid 1935 Provider Department Center 10/02/2023 Juliane-ANDRE RIVERA [facility] Family History Problem Relation Age of Onset Stroke Mother Stroke Father Stroke Sister Heart attack Brother Cancer Brother Family Status - Relation Status Age at Mother Father Sister Brother [facility] Office Visiton 08-20-2023 Follow-up visit [id number] Radha Madrid 1935 Provider Department Center 08/20/2023 241-MATTHEW OSMAN Family History Problem Relation Age of Onset Stroke Mother Stroke Father Stroke Sister Heart attack Brother Cancer Brother Family Status - Relation Status Age at Mother Father Sister Brother Level of Service:76040 SC OFFICE/OUTPATIENT NEW MODERATE MDM 45 MINUTES Reason for Visit and Comments: Follow-up [[id number]] - Monitor results Patient is having issues with increase in medications. [facility] Orders Onlyon 08-20-2023 Orders Only [id number] Radha Madrid 1935 Provider Department Center 08/20/2023 OLIVIA CANTU Family History Problem Relation Age of Onset Stroke Mother Stroke Father Stroke Sister Heart attack Brother Cancer Brother Family Status - Relation Status Age at Mother Father Sister Brother [facility] Office Visiton 07-15-2023 Follow-up visit [id number] Radha Madrid 1935 F Date Provider Department Center 07/15/2023 Yanira-JOSE DANIEL [facility] Family History Problem Relation Age of Onset Stroke Mother Stroke Father Stroke Sister Heart attack Brother Cancer Brother Family Status - Relation Status Age at Mother Father Sister Brother Level of Service:25933 SC OFFICE/OUTPATIENT NEW MODERATE MDM 45 MINUTES Normal [facility] XR CHEST 2 VIEWSon XR CHEST 2 [...] Date Time Vital Sign Value Performing Clinician Red barnes 06-24-2023 11:38-0500 Body height 165.1 cm Alba Jhak AGRICULTURAL EQUIPMENT DESIGN ENGINEER Work Phone: [facility] 06-24-2023 11:38-0500 Body mass index (BMI) [Ratio] 36.38 kg/m2 Alba Maier AGRICULTURAL EQUIPMENT DESIGN ENGINEER Work Phone: [facility] 06-24-2023 11:38-0500 Body weight 99.16 kg Alba Maier AGRICULTURAL EQUIPMENT DESIGN ENGINEER Work Phone: [facility] 06-24-2023 11:38-0500 Diastolic blood pressure 74 mm[Hg] Alba Valladarestrick AGRICULTURAL EQUIPMENT DESIGN ENGINEER Work Phone: [facility] 06-24-2023 11:38-0500 Heart rate 99 /min Alba Maier AGRICULTURAL EQUIPMENT DESIGN ENGINEER Work Phone: [facility] 06-24-2023 11:38-0500 SaO2% (BldA) [Mass fraction] 96 % Alba Valladarestrick AGRICULTURAL EQUIPMENT DESIGN ENGINEER Work Phone: [facility] 06-24-2023 11:38-0500 Systolic blood pressure 124 mm[Hg] Alba Valladarestrick AGRICULTURAL EQUIPMENT DESIGN ENGINEER Work Phone: [facility] Encounters Encounter Date Encounter Type Care Provider Facility Start: 12-31-2023 End: 12-31-2023 ambulatory [facility] Start: 12-09-2023 End: 12-09-2023 ambulatory ALBA MAIER Not Available Start: 12-05-2023 End: 12-05-2023 ambulatory ALBA MAIER Not Available Start: 12-02-2023 End: 12-02-2023 ambulatory DAGO BRUMFIELD Not Available Start: 11-22-2023 End: 11-22-2023 ambulatory [facility] Start: 10-23-2023 ambulatory [facility] Start: 10-18-2023 End: 10-18-2023 ambulatory [facility] Start: 10-02-2023 ambulatory [facility] Start: 10-02-2023 End: 10-02-2023 ambulatory [facility] Start: 08-27-2023 End: 08-27-2023 ambulatory ALBA MAIER Not Available Start: 08-20-2023 End: 08-20-2023 ambulatory [facility] Start: 07-22-2023 End: 07-22-2023 ambulatory ALBA MAIER Not Available Start: 07-15-2023 End: 07-15-2023 ambulatory [facility] Start: 06-24-2023 End: 06-24-2023 Office outpatient visit 25 minutes Alba Maier AGRICULTURAL EQUIPMENT DESIGN ENGINEER Work Phone: [facility] Comment on above: Chronic atrial fibri llation (HCC) (CMS/HCC) (Primary Dx); Essential hypertension (CMS/HCC) Start: 06-24-2023 End: 06-24-2023 ambulatory ALBA JHAK Not Available Start: 06-23-2023 Orders Only Alba taylor AGRICULTURAL EQUIPMENT DESIGN ENGINEER Work Phone: [facility] Comment on above: Chronic atrial fibri llation (HCC) ([facility]/HCC) (Primary Dx); Heart failure, unspecified HF chronicity, unspecified heart failure type ([facility]/HCC) Start: 06-19-2023 End: 06-19-2023 ambulatory ALBA MAIER Not Available Start: 06-19-2023 End: 06-19-2023 ambulatory ALBA MAIER Not Available Procedures Date Procedure Procedure Detail Performing Clinician Start: 02-27-2023 H/O: hysterectomy H/O: hysterectomy Alba Maier AGRICULTURAL EQUIPMENT DESIGN ENGINEER Work Phone: Start: 02-27-2023 History of cholecystectomy S/P cholecystectomy Alba hu AGRICULTURAL EQUIPMENT DESIGN ENGINEER Work Phone: Plan of Treatment Date Care Activity Detail Author Start: 03-12-2024 Medicare Annual Well ness (AWV) Medicare Annual Wellness (AWV) [facility] Start: 07-22-2023 End: 07-22-2023 Patient encounter procedure 07/22/2023 11:00 AM EST Office Visit [facility] [address] [facility] ([place], [place] [place] [id number] Alba Maier AGRICULTURAL EQUIPMENT DESIGN ENGINEER [address] [place] [address] [facility] Start: 06-24-2023 End: 06-24-2023 Patient encounter procedure 06/24/2023 11:30 AM EST Office Visit [facility] [address] [facility] ([place] [place] [place] [id number] Alba Maier AGRICULTURAL EQUIPMENT DESIGN ENGINEER [address] [facility] ([place], [place]) [place] [address] [facility] Immunizations Immunization Date Immunization Notes Care Provider [facility] 03-12-2023 Influenza, High-dose Seasonal, Quadrivalent, Preservative Free Alba Maier AGRICULTURAL EQUIPMENT DESIGN ENGINEER Work Phone: [facility] 03-09-2022 Influenza, High-dose Seasonal, Quadrivalent, Preservative Free Alba Maier AGRICULTURAL EQUIPMENT DESIGN ENGINEER Work Phone: [facility] 03-09-2022 Moderna Bivalent Hess ster Vaccination Alba Maier AGRICULTURAL EQUIPMENT DESIGN ENGINEER Work Phone: [facility] 02-22-2021 Influenza, High-dose Seasonal, Quadrivalent, Preservative Free Alba Maier AGRICULTURAL EQUIPMENT DESIGN ENGINEER Work Phone: [facility] 02-17-2020 Influenza, High-dose Seasonal, Quadrivalent, Preservative Free Alba Maier AGRICULTURAL EQUIPMENT DESIGN ENGINEER Work Phone: [facility] 02-16-2020 Influenza, Seasonal, Quadrivalent, Adjuvanted Alba Maier AGRICULTURAL EQUIPMENT DESIGN ENGINEER Work Phone: [facility] 02-13-2019 influenza, high dose seasonal, preservative-free Alba Maier AGRICULTURAL EQUIPMENT DESIGN ENGINEER Work Phone: [facility] 01-14-2018 influenza, high dose seasonal, preservative-free Alba Maier AGRICULTURAL EQUIPMENT DESIGN ENGINEER Work Phone: [facility] 02-18-2017 influenza, high dose seasonal, preservative-free Alba Maier AGRICULTURAL EQUIPMENT DESIGN ENGINEER Work Phone: [facility] 01-18-2017 influenza, high dose seasonal, preservative-free Alba Maier AGRICULTURAL EQUIPMENT DESIGN ENGINEER Work Phone: [facility] 03-12-2016 Influenza, High-dose Seasonal, Quadrivalent, Preservative Free Alba Maier AGRICULTURAL EQUIPMENT DESIGN ENGINEER Work Phone: [facility] 05-02-2015 pneumococcal conjuga te vaccine, 13 valent Alba Maier AGRICULTURAL EQUIPMENT DESIGN ENGINEER Work Phone: [facility] 02-26-2015 zoster vaccine, live Alba Maier AGRICULTURAL EQUIPMENT DESIGN ENGINEER Work Phone: [facility] 04-02-2014 pneumococcal polysaccharide vaccine, 23 valent Alba Maier AGRICULTURAL EQUIPMENT DESIGN ENGINEER Work Phone: [facility] 03-05-2007 influenza virus vacc ine, whole virus Alba Maier AGRICULTURAL EQUIPMENT DESIGN ENGINEER Work Phone: [facility] Payers Date Payer Category Payer Medicare [id number] 2023 Unknown AARP AARP [id number] 2023-Present [address] [place] [address] [id number] 2023 Unknown [id number] 2002 Medicare [id number] 2002 Medicare [id number] 1935 Unknown [id number] 1935 Unknown [id number] 1935 Unknown [id number] 1935 Unknown [id number] 1935 Unknown [id number] 1935 Unknown [id number] 1935 Unknown [id number] 1935 Unknown [id number] Social History Date Type Detail Facility Start: [...] Humiliation, Afraid, Rape, and Kick questionnaire [HARK] [facility] Within the last year , have you been afraid of your partner or ex-partner? No [facility] Do you belong to any clubs or organizations such as samaritan groups, unions, fraternal or athletic groups, or school groups? Yes [facility] Are you now , , , , never or living with a partner? [facility] How often to you hav e a drink containing alcohol? Never [facility] How many standard dr inks containing alcohol do you have on a typical day? Patient does not drink [facility] How hard is it for y ou to pay for the very basics like food, housing, medical care, and heating Not very hard [facility] Do you feel stress - tense, restless, nervous, or anxious, or unable to sleep at night because your mind is troubled all the time - these days [OSQ] Only a little [facility] (I/We) worried whececil er (my/our) food would run out before (I/we) got money to buy more. Never true [facility] Start: 03-12-2023 Alcohol Comment caffeine: 2-3 cups per day [facility] Start: 1935 Sex Assigned At Female N [facility] Start: 03-05-2023 Gender identity Identifies as female gender (finding) [facility] Start: 03-05-2023 Sexual orientation Heterosexual (fin ding) [facility] Clinical Notes 06-24-2023 to 12-31-2023 Alba Maier, ENRIQUE - 06/24/2023 11:30 AM EST Note Date & Type Note Facility 12-31-2023 Note [facility] Consult Note Reason for visit: afib 12/31/23 Patient underwent cardioversion on 10/02/2023 and she converted to sinus rhythm but reverted back to A-fib and on subsequent follow-up amiodarone was stopped because she was not able to tolerate it. She has declined a sleep study because she is noncompliant with the CPAP machine. She was seen by . Subsequent Holter monitor done by reveals Lluvia-fib with controlled ventricular rate. Prior HPI: Radha Madrid is a 88 y.o. [...] Determinants of Health Tobacco Use: Low Risk (10/18/2023) Patient History Smoking Tobacco Use: Never Smokeless Tobacco Use: Never Passive Exposure: Not on file Alcohol Use: Not on file Financial Resource Strain: Not on file Food Insecurity: Not on file Transportation Needs: Not on file Physical Activity: Not on file Stress: Not on file Social Connections: Not on file Intimate Partner Violence: Unknown (07/11/2023) [place] Fear of Current or [...] Hives Other reaction(s): hives, SOB Acetaminophen Unknown Amiodarone Nausea Only Nitrofurantoin Hives Celecoxib GI intolerance Other Reaction(s): breakout/facial swelling Weight: 96.6kg Visit Vitals BP 114/73 (BP Location: Left arm, Patient Position: Sitting) Pulse 83 Ht 1.676 m (5' 6 ) Wt 96.6 kg (213 lb) SpO2 95% BMI 34.38 kg/m??? OB Status Hysterectomy Smoking Status Never BSA 2.12 m??? Meds: Current Outpatient Medications on File Prior to Visit Medication Sig Dispense Refill apixaban (Eliquis) 5 mg tablet Take 1 tablet (5 mg) by mouth two times daily. 14 tablet 0 atenolol (Tenormin) 25 mg tablet Take 1 tablet (25 mg) by mouth in the morning. 90 tablet 3 doxycycline (Adoxa) 100 mg tablet Take 100 mg by mouth two times daily. Take with a full glass of water and do not lie down for at least 30 minutes after furosemide (Lasix) 20 mg tablet Take 2 tablets (40 mg) by mouth in the morning. 180 tablet 3 spironolactone (Aldactone) 25 mg tablet Take 1 tablet (25 mg) by mouth in the morning. 30 tablet 11 ALPRAZolam (Xanax) 0.5 mg tablet Take 0.5 mg by mouth every 12 (twelve) hours. meloxicam (Mobic) 15 mg tablet Take 15 mg by mouth in the morning. No current facility-administered medications on file prior to visit. ROS: SOB+ Physical Exam: Constitutional General Appearance: well-nourished, well-developed, [...] enlarged Lungs Respiratory Effort: unlabored Chest Exam: (more content not included)... [facility] 11-22-2023 Note [facility] Note Reason for cardiology [...] soft, nontender, n (more content not included)... [facility] 10-23-2023 Note [facility] Progress Note Reason for cardiology visit: Patient here for 1 week follow up labs per Iva Carrera CNP. HPI: Radha Madrid is a 88 [...] calcium 9 T (more content not included)... [facility] 10-18-2023 Note [facility]- III currently very fluid overloaded with significant [...] fluid restriction 1.5-2L/day, renal function and electrolytes- [facility] 10-18-[address] [facility] 10-18-2023 Note Patient here for fol [...] All other systems reviewed and are negative. [facility] 10-18-2023 Note [facility] CARDIOLOGY PROGR ESS NOTE [...] seconds. Neurological: General (more content not included)... [facility] 10-18-2023 Note S/P cardioversion sh e was noted to convert to SR for a very short time and converted back into Afib prior to DC home - afib on ECG today -[id number] at least 4 for age x 2, [...] diltiazem 120 gm tablet for rate management [facility] 10-02-2023 Note DIRECT CARDIOVERSION PROCEDURE NOTE Date: [...] Continue anticoagulation. Matthew Osman MD Cardiac Electrophysiology [facility] 10-02-2023 Note Patient: Radha Goddard nk Procedure Information Date/Time: 10/02/23829 Procedure: Cardioversion Location: [facility] / [facility] (Cath) Providers: Matthew Osman MD Clinical information reviewed: Allergies Meds OB Status Physical Exam Airway Mallampati: II TM distance: >3 FB Neck ROM: full Cardiovascular Dental Pulmonary Abdominal Anesthesia Plan ASA 2 CSE Anesthetic plan and risks discussed with patient. Use of blood products discussed with patient who. Additional Equipment Requests [facility] 08-20-2023 Note [facility] Consult Note Reason for visit: afib [...] on file Intimate Partner Violence: Unknown (07/11/2023) [place] Fear of Current or [...] Distress: comfortable Psyc (more content not included)... [facility] 07-15-2023 Note [facility] Consult Note Reason [...] on file Intimate Partner Violence: Unknown (07/11/2023) [place] Fear of Current or [...] Rate And Rhythm (more content not included)... [facility] 07-15-2023 Note New patient here to establish [...] All other systems reviewed and are negative. [facility] 06-24-2023 History of Present illness Narrative Radha [...] understanding of meds. documented in this encounter [facility] Healthcare Evaluation note Diagnosis Chronic atrial fibrillation (HCC) (CMS/HCC)- Primary Atrial fibrillation Heart failure, unspecified HF chronicity, unspecified heart failure type (CMS/HCC) documented in this encounter [facility] HealthcareEvaluation note* Diagnosis Chronic atrial fibrillation (HCC) (CMS/HCC)- Primary Atrial fibrillation Essential hypertension (CMS/HCC) Unspecified essential hypertension documented in this encounter [facility] HealthcareReason for referral (narrative)* Consultation (Routine) - Pending Review Specialty Diagnoses / Procedures Referred By Leanne harley Referred To Contact Cardiology Diagnoses Chronic atrial fibrillation (HCC) (CMS/HCC) Heart failure, unspecified HF chronicity, unspecified heart failure type (CMS/HCC) Procedures SC OFFICE/OUTPATIENT NEW HIGH MDM 60 MINUTES Alba Maier NP [address] [place] [address] Referral ID Status Reason Start Date Expiration Date Visits Requested Visits Authorized [id number] Pending Review Specialty Services Required 06/23/2023 12/20/2023 1 1 [facility] Healthcare Summary Purpose Family History No Family History Records FoundNo Family History Records Found Advance Directives No Advanced Directives Records FoundNo Advanced Directives Records Found Additional Source Comments Care Teams (unrecognized sec tion and content) Instructional Aide Relationship Specialty Start Date End Date Radha Bruno MD [address] [place] [address] PCP - ACO Reach 10/11/22 Alba Alston MD [address] [place] [address] PCP - General Family Medicine 06/18/23 [place] [address] [place] [id number] Nurse Practitioner Family Medicine 06/18/23 Instructional Aide Relationship Specialty Start Date End Date Radha Bruno MD [address], [place] [id number] PCP - ACO Reach 10/11/22 Alba Alston MD [address] [place] [address] PCP - General Family Medicine 06/18/23 [place] [address] [place] [id number] Nurse Practitioner Family Medicine 06/18/23 Reason for Visit (unrecogniz ed section and content) Reason Comments Hypertension INFORMATION SOURCE (unrecogn ized section and content) DATE CREATED AUTHOR 12/11/2023 [facility] EPIC DATE CREATED AUTHOR AUTHOR'S ORGANIZ ATION 01/09/2024 [facility] FOR RECORDS PERTAINING TO PATIENTS WHO ARE [...] BE BASED ON THE PRIMARY CLINICAL RECORDS. [email or web address] [facility]. provides no warranty or guarantee of the accuracy or completeness of information in this document.
== END 2024-01-13 15:22 | disposition home or self-care (01) ==
LOC: VC 13:05
PROVIDERS: PCP Radiology Diagnostic Radiology; Visit Provider Radiology Diagnostic Radiology
DX: I83.813 Varicose veins of bilateral lower extremities with pain (principal)
CPT/HCPCS: 36466

== ENCOUNTER 2024-01-22 10:46 | Outpatient (OUT) | payer MEDICARE, SELFPAY ==
--- NOTE | 2024-01-22 07:32 | VEINCLINIC_ITS ---
Vital Signs 01/22/24 11:31 Height 5 ft 6 in Weight 99 kg BMI 35.2 Varicose Veins Patient in today for follow up ultrasound of left lower extremity following treatment of Varithena/microfoam completed on 01/13/24. Joao Carter MD personally performed the services described in this documentation, as scribed by Mari Seals RDMS in my presence and it is both accurate and complete. Mari Carter RDMS, am scribing for, and in the presence of, Dr. Betty Florez and in the presence of the patient. thigh: bilateral, knee: bilateral, calf: bilateral, ankle: bilateral and rouse: bilateral aching, cramping and tender 6 6 months Worsened in recent months: Yes standing and walking bed rest Reports muscle spasms of leg, erythema, fatigue, heaviness, limb pain, edema and leg edema History of lower extremity trauma: Yes Superficial thrombophlebitis: No Family history of varicose veins: yes Has patient had previous lower extremity venous surgery: No Patient has previously received the following treatment(s) for lower extremity varicose veins: Reports none Does patient have a history of : yes Does patient intend to have future pregnancies: no Has patient had lower extremity venous scan with relux testing: Yes Support hose used: Yes Problems walking or doing physical activity: Yes How does it affect you: unable to walk long distances, stand for long periods of time Do you walk much: No Do you stand much: Yes Medication compliance: good Review of Systems ROS Narrative Joao Carter MD personally performed the services described in this documentation, as scribed by Mari Seals RDMS in my presence and it is both accurate and complete. Mari Carter RDMS, am scribing for, and in the presence of, Dr. Betty Florez and in the presence of the patient. Status of ROS 10 or more systems reviewed and unremark able except as noted in history and below Cardiovascular Reports: edema and swelling of feet/ankles Musculoskeletal Reports: extremity pain, extremity swelling, joint pain, joint swelling, muscle cramps and muscle weakness Integumentary/Breast Reports: rash and redness [facility] History (Updated 12/27/23 @ 09:26 by Benji Wagoner) Phlebitis and thrombophlebitis of superficial vessels of right lower extremity ?I80.01 - Phlebitis and thrombophlebitis of superficial vessels of right lower extremity (ICD-10) Phlebitis of superficial vein of left lower extremity ?I80.02 - Phlebitis and thrombophlebitis of superficial vessels of left lower extremity (ICD-10) Atrial fibrillation ?I48.91 - Unspecified atrial fibrillation (ICD-10) 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 ?I83.813 - Varicose veins of bilateral lower extremities with pain (ICD-10) Hypertension ?I10 - Essential (primary) hypertension (ICD-10) Surgical History (Updated 11/28/23 @ 15:11 by Bernarda Estes RN) H/O: hysterectomy ?Z90.710 - Acquired absence of both cervix and uterus (ICD-10) History of tonsillectomy ?Z90.89 - Acquired absence of other organs (ICD-10) History of bladder suspension procedure ?Z98.890 - Other specified postprocedural states (ICD-10) ?Z87.448 - Personal history of other diseases of urinary system (ICD-10) History of left hip replacement ?Z96.642 - Presence of left artificial hip joint (ICD-10) History of knee replacement procedure of right knee ?Z96.651 - Presence of right artificial knee joint (ICD-10) History of angioplasty of peripheral vessel ?Z98.62 - Peripheral vascular angioplasty status (ICD-10) Family History (Updated 11/28/23 @ 15:12 by Bernarda Estes, JEFFERY) Mother Family history of CHF (congestive heart failure) Family history of hypertension Family history of myocardial infarction 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 Brother Family history of CHF (congestive heart failure) Family history of cancer Family history of myocardial infarction Sister Family history of stroke Social History (Updated 11/28/23 @ 15:11 by Bernarda Estes, JEFFERY) Within the past year, how often did you have a drink containing alcohol: never Score interpretation: A score less than 3 is consistent with normal alcohol consumption. Smoking status: Never smoker Non-prescribed substance use: denies use Meds Home Medications and Allergies Home Medications ?Medication ?Instructions ?Recorded ?Confirmed ?Type apixaban 5 mg tablet (Eliquis) 5 mg PO BID 09/23/23 11/28/23 History atenolol 25 mg tablet 25 mg PO DAILY 09/23/23 11/28/23 History carvedilol 12.5 mg tablet 12.5 mg PO DAILY 09/23/23 11/28/23 History meloxicam 15 mg tablet 15 mg PO DAILY 09/23/23 11/28/23 History furosemide 20 mg tablet 20 mg PO Q12H 11/28/23 11/28/23 History doxycycline monohydrate 100 mg 100 mg PO BID 12/20/23 12/20/23 History capsule Allergies Allergy/AdvReac Type Severity Reaction Status Date / Time acetaminophen [From Tylenol] Allergy Mild Hives Verified 09/23/23 17:21 ibuprofen [From Motrin] Allergy Mild Hives Verified 09/23/23 17:21 metoprolol Allergy Mild Hives Verified 09/23/23 17:21 cephalexin [From Keflex] Allergy Hives Verified 12/20/23 11:32 Coban AdvReac Mild Rash Uncoded 11/28/23 15:09 Exam Narrative Exam Narrative: Mild tenderness to left calf. Continued redness to lower left leg. Improvement during antibiotic treatment, but returned after completion of med. Joao Carter MD personally performed the services described in this documentation, as scribed by Mari Seals RDMS in my presence and it is both accurate and complete. Mari Carter RDMS, am scribing for, and in the presence of, Dr. Betty Florez and in the presence of the patient. 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 Joao Carter MD personally performed the services described in this documentation, as scribed by Mari Seals RDMS in my presence and it is both accurate and complete. aMri Carter RDMS, am scribing for, and in the presence of, Dr. Betty Florez and in the presence of the patient. Assessment and Plan Assessment and Plan (1) Phlebitis of superficial vein of left lower extremity: Plan Plan is for patient to start on second round of Doxycycline 100mg BID for 14 days and patient is going to call when ready for EVLT of right leg GSV. Joao Carter MD personally performed the services described in this documentation, as scribed by Mari Seals RDMS in my presence and it is both accurate and complete. I, Mari Seals RDMS, am scribing for, and in the presence of, Dr. Betty Florez and in the presence of the patient.
--- NOTE | 2024-01-22 10:47 | VEIN_ITS ---
Patient Name: ADELINA DUKE MR#: [id number] : 1935 Exam Date: 01/22/2024 Ordering Doctor: DR ANTONY TATUM M.D. RADIOLOGY REPORT PROCEDURE: [facility] EST [facility] - OFFICE VISIT FOLLOW UP COMPARISON: FACILITY EST LMTD, 12/20/2023. VC EXT VENOUS LT LIMITED, 12/20/2023. FACILITY EST LMTD, 01/06/2024. PROGRESS NOTES: The patient reports left calf tenderness and return of erythema and swelling of lower left leg which had resolved on recent course of antibiotics. There has been interval reduction in varicosities. The patient has followed our recommendations to walk 20-30 minutes once or twice per day since the procedure. Physical exam demonstrates decrease in varicosities of the leg. Lower left leg erythema and edema. Persistent are identified along the right leg. Review of the ultrasound performed the same day demonstrates occlusive thrombus extending throughout the treated vein(s), see separate report, consistent with a successful ablation. No thrombus extending into or beyond the saphenofemoral junction. The patient expressed a desire to hold all of on beginning treatment of right leg until left leg feels better. Patient would like a 2nd course of antibiotics (which according to patient nearly completely cleared up the lower left leg erythema, which has not returned since ending the course of antibiotics). VEIN/ Facility EST LMTD IMPRESSION: 1. Successful ablation of the left leg treated branch saphenous vein(s). 2. Return of lower left leg erythema and increased tenderness, possibly representing cellulitis. 3. Persistent right lower extremity varicose veins and lower extremity symptoms. PLAN: Second course of doxycycline (doxycycline 100 mg 2 times per day for 10 days). Follow-up at vein center in 2 weeks or her family physician. Nurse notes, history and physical were reviewed and confirmed, see attached forms. The nurse was present throughout the physical exam and consultation Dictated by: Joao Florez M.D. on 01/22/2024 at 11:51 Approved by: Joao Florez M.D. on 01/22/2024 at 11:58
--- NOTE | 2024-01-22 10:47 | VEIN_ITS ---
Patient Name: ADELINA DUKE MR#: [id number] : 1935 Exam Date: 01/22/2024 Ordering Doctor: DR ANTONY TATUM M.D. RADIOLOGY REPORT PROCEDURE: VC EXT VENOUS LT LIMITED COMPARISON: VC EXT VENOUS LT LIMITED, 01/06/2024. INDICATIONS: I80.02 - Phlebitis and thrombophlebitis of superficial veins left leg TECHNIQUE: Lower extremity thomas scale and Duplex Doppler evaluation of the deep venous system from the inguinal ligament through the calf veins. FINDINGS: REGION: Left lower extremity. THROMBI: Negative for DVT. Chemically induced thrombus in multiple varicose veins in left leg. COMPRESSIBILITY: Non-compressible segments corresponding to thrombus FLOW: Areas of no flow corresponding to thrombus OTHER: Limited visualization of calf veins due to edema. Two patent varicose veins remain, measure 3.3 mm. CONCLUSION: 1. Successful post ablation occlusion of left leg treated branch saphenous varicosities. Dictated by: Joao Florez M.D. on 01/22/2024 at 11:51 Approved by: Joao Florez M.D. on 01/22/2024 at 11:51
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
[2024-01-22 11:31] VITALS: BMI 35.2
--- NOTE | 2024-01-22 11:34 | W.VEIN ---
Discharge Plan Discharge Disposition: Home, Self-Care Outpatient Diagnostics: VC Endovenous Ablation 1VeinRT (Routine) Timeframe: 2 Weeks Facility: [facility] - Location: [facility] Ordered By: Joao Florez Follow Up Appointments: Patient will call when ready to schedule Plan of Treatment: EVLT of right leg GSV EVLT Tumescent Anesthesia: 500 mL 0.9% NS with 20 mL 1% Lidocaine and 10 mL 8.4% NAHCO3 Buffered Local Anesthesia: 10 mL of 1% Lidocaine Buffered Print Language: Slovak Discharge Date/Time: 01/22/24 11:35
== END 2024-01-22 11:35 | disposition home or self-care (01) ==
PROVIDERS: PCP Radiology Diagnostic Radiology; Visit Provider Radiology Diagnostic Radiology
DX: I80.02 Phlebitis and thrombophlebitis of superficial vessels of left lower extremity (principal)
CPT/HCPCS: 93971; G0463

== ENCOUNTER 2024-06-19 12:58 | Outpatient (OUT) | payer MEDICARE, SELFPAY ==
--- NOTE | 2024-06-19 13:02 | P.DS_ITS ---
Discharge Plan Discharge Disposition: Home, Self-Care Plan of Treatment: Start on doxycycline 100mg BID for 14 days Print Language: Turkish Referrals: lymphedema [Other] Discharge Date/Time: 06/19/24 14:30
--- NOTE | 2024-06-19 13:06 | VEIN_ITS ---
Patient Name: ADELINA DUKE MR#: [id number] : 1935 Exam Date: 06/19/2024 Ordering Doctor: DR CELESTINE MUHAMMAD M.D. RADIOLOGY REPORT PROCEDURE: FACILITY EST LMTD [facility] - OFFICE VISIT FOLLOW UP COMPARISON: [facility] EST LMTD, 01/22/2024. [facility] EST LMTD, 01/06/2024. PROGRESS NOTES: The patient reports new redness in her left leg and is concerned about cellulitis. The patient has not taken antibiotics. Physical exam demonstrates persistent bilateral below knee pitting edema, left greater than right. There is new mild redness and mild erythema of the left mid to distal lower leg in a circumferential distribution. I do suspect she might have early cellulitis. Review of the ultrasound performed the same day demonstrates no deep vein thrombus. Thrombosed treated superficial veins are observed.. The patient asked for the latest antibiotic that she was prescribed which is doxycycline. I did discuss with the patient that she had significant lymphedema and should treated at a lymphedema clinic. VEIN/[facility] EST LMTD IMPRESSION: 1. No deep vein thrombus 2. Suspected early left leg cellulitis PLAN: Doxycycline 100 milligram b.i.d. For 14 days Follow-up with lymphedema Clinic Nurse notes, history and physical were reviewed and confirmed, see attached forms. The nurse was present throughout the physical exam and consultation Dictated by: Celestine Muhammad MD on 06/19/2024 at 14:29 Approved by: Celestine Muhammad MD on 06/19/2024 at 14:38
--- NOTE | 2024-06-19 13:06 | VEIN_ITS ---
Patient Name: ADELINA DUKE MR#: [id number] : 1935 Exam Date: 06/19/2024 Ordering Doctor: DR CELESTINE MUHAMMAD M.D. RADIOLOGY REPORT PROCEDURE: VC EXT VENOUS LT LIMITED COMPARISON: VC EXT VENOUS LT LIMITED, 01/22/2024. VC EXT VENOUS LT LIMITED, 01/06/2024. INDICATIONS: I80.02 - Phlebitis and thrombophlebitis of superficial veins left leg TECHNIQUE: Lower extremity thomas scale and Duplex Doppler evaluation of the deep venous system from the inguinal ligament through the calf veins. FINDINGS: REGION: Right lower extremity. THROMBI: Negative for DVT. COMPRESSIBILITY: Non-compressible segments corresponding to thrombus FLOW: Areas of no flow corresponding to thrombus CONCLUSION: No deep vein thrombus observed Dictated by: Celestine Muhammad MD on 06/19/2024 at 14:11 Approved by: Celestine Muhammad MD on 06/19/2024 at 14:29
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
--- NOTE | 2024-06-19 14:26 | VEINCLINIC_ITS ---
Varicose Veins Patient in today for ultrasound of left lower extremity following and exam. Celestine Carter MD personally performed the services described in this documentation, as scribed by Mari Seals RDMS in my presence and it is both accurate and complete. Mari Carter RDMS, am scribing for, and in the presence of, Dr. Celestine Muhammad and in the presence of the patient. thigh: bilateral, knee: bilateral, calf: bilateral, ankle: bilateral and rouse: bilateral aching, cramping and tender 6 6 months Worsened in recent months: Yes standing and walking bed rest Reports muscle spasms of leg, erythema, fatigue, heaviness, limb pain, edema and leg edema History of lower extremity trauma: Yes Superficial thrombophlebitis: No Family history of varicose veins: yes Has patient had previous lower extremity venous surgery: No Patient has previously received the following treatment(s) for lower extremity varicose veins: Reports none Does patient have a history of : yes Does patient intend to have future pregnancies: no Has patient had lower extremity venous scan with relux testing: Yes Support hose used: Yes Problems walking or doing physical activity: Yes How does it affect you: unable to walk long distances, stand for long periods of time Do you walk much: No Do you stand much: Yes Medication compliance: good Review of Systems ROS Narrative Celestine Carter MD personally performed the services described in this documentation, as scribed by Mari Seals RDMS in my presence and it is both accurate and complete. Mari Carter RDMS, am scribing for, and in the presence of, Dr. Celestine Muhammad and in the presence of the patient. Status of ROS 10 or more systems reviewed and unremark able except as noted in history and below Cardiovascular Reports: edema and swelling of feet/ankles Musculoskeletal Reports: extremity pain, extremity swelling, joint pain, joint swelling, muscle cramps and muscle weakness Integumentary/Breast Reports: rash and redness [facility] Medical History (Updated 12/27/23 @ 09:26 by Benji Wagoner) Phlebitis and thrombophlebitis of superficial vessels of right lower extremity ?I80.01 - Phlebitis and thrombophlebitis of superficial vessels of right lower extremity (ICD-10) Phlebitis of superficial vein of left lower extremity ?I80.02 - Phlebitis and thrombophlebitis of superficial vessels of left lower extremity (ICD-10) Atrial fibrillation ?I48.91 - Unspecified atrial fibrillation (ICD-10) 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 ?I83.813 - Varicose veins of bilateral lower extremities with pain (ICD-10) Hypertension ?I10 - Essential (primary) hypertension (ICD-10) Surgical History (Updated 11/28/23 @ 15:11 by Bernarda Estes RN) H/O: hysterectomy ?Z90.710 - Acquired absence of both cervix and uterus (ICD-10) History of tonsillectomy ?Z90.89 - Acquired absence of other organs (ICD-10) History of bladder suspension procedure ?Z98.890 - Other specified postprocedural states (ICD-10) ?Z87.448 - Personal history of other diseases of urinary system (ICD-10) History of left hip replacement ?Z96.642 - Presence of left artificial hip joint (ICD-10) History of knee replacement procedure of right knee ?Z96.651 - Presence of right artificial knee joint (ICD-10) History of angioplasty of peripheral vessel ?Z98.62 - Peripheral vascular angioplasty status (ICD-10) Family History (Updated 11/28/23 @ 15:12 by Bernarda Estes RN) Mother Family history of CHF (congestive heart failure) Family history of hypertension Family history of myocardial infarction 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 Smoking status: Never smoker Non-prescribed substance use: denies use Meds Home Medications and Allergies Home Medications ?Medication ?Instructions ?Recorded ?Confirmed ?Type apixaban 5 mg tablet (Eliquis) 5 mg PO BID 09/23/23 11/28/23 History atenolol 25 mg tablet 25 mg PO DAILY 09/23/23 11/28/23 History carvedilol 12.5 mg tablet 12.5 mg PO DAILY 09/23/23 11/28/23 History meloxicam 15 mg tablet 15 mg PO DAILY 09/23/23 11/28/23 History furosemide 20 mg tablet 20 mg PO Q12H 11/28/23 11/28/23 History doxycycline monohydrate 100 mg 100 mg PO BID 12/20/23 06/19/24 History capsule Allergies Allergy/AdvReac Type Severity Reaction Status Date / Time acetaminophen (From Tylenol) Allergy Mild Hives Verified 09/23/23 17:21 ibuprofen (From Motrin) Allergy Mild Hives Verified 09/23/23 17:21 metoprolol Allergy Mild Hives Verified 09/23/23 17:21 cephalexin (From Keflex) Allergy Hives Verified 12/20/23 11:32 [place]an AdvReac Mild Rash Uncoded 11/28/23 15:09 Exam Narrative Exam Narrative: Patient presents with left lower extremity redness and tenderness with swelling for 2 days. Celestine Carter MD personally performed the services described in this documentation, as scribed by Mari Seasl RDMS in my presence and it is both accurate and complete. Mari Carter RDMS, am scribing for, and in the presence of, Dr. Celestine Muhammad and in the presence of the patient. Results Imaging Venous US: Radiologist's impression: No evidence of DVT in left leg at this time. Celestine Carter MD personally performed the services described in this documentation, as scribed by Mari Seals RDMS in my presence and it is both accurate and complete. Mari Carter RDMS, am scribing for, and in the presence of, Dr. Celestine Muhammad and in the presence of the patient. Assessment and Plan Assessment and Plan (1) Phlebitis of superficial vein of left lower extremity: Plan Patient is to start on Doxycycline 100 mg BID for 14 days and to be refered to a lymphedema clinic closer to her home in [place]. Follow up as needed. Celestine Carter MD personally performed the services described in this documentation, as scribed by Mari Seals RDMS in my presence and it is both accurate and complete. Mari Carter RDMS, am scribing for, and in the presence of, Dr. Celestine Muhammad and in the presence of the patient.
== END 2024-06-19 14:30 | disposition home or self-care (01) ==
PROVIDERS: PCP Radiology Diagnostic Radiology; Visit Provider Radiology Diagnostic Radiology
DX: I80.02 Phlebitis and thrombophlebitis of superficial vessels of left lower extremity (principal)
CPT/HCPCS: 93971; G0463